=== PATIENT | female | born 1985 | race Two or more races ===

== ENCOUNTER → 2016-08-19 | Emergency (ER) | payer OTHER ==
[~2016-08-19] MED LIST: FAMOTIDINE 20 MG/50 ML IVPB 50 ML IVPB ONE; KETOROLAC TROMETHAMINE 30 MG/1 ML VIAL IVPUSH ONE; KETOROLAC TROMETHAMINE 30 MG/1 ML VIAL ONE; ONDANSETRON 4 MG/2 ML VIAL IVPUSH ONE; ONDANSETRON 4 MG/2 ML VIAL ONE; SODIUM CHLORIDE 0.9% 1000 ML INFUS.BAG IV ONE
--- NOTE | 2016-08-19 01:25 | PDOC ---
History of Present Illness - General Stated Complaint: STOMACH PAINS History Source: Patient Exam Limitations: No Limitations - History of Present Illness Initial Comments: 08/19/16 01:24 Patient is a 31 year old female with h/o A-Fib with ablation x 2 attempts c/o epigastric pain with LLQ abd pain since 11:30 pm tonight. States the pain was sudden onset associated with nausea, vomiting and diarrhea. Pain is stabbing, sharp, continuos 10/10, with no aggravating or alleviating factors. Did not take anything for the pain. Has h/o A-Fib was drinking wine today. Review of the chart shows patient has had prior episode of this type of pain 10/2005, with neg US. PMD: Kunal PMHX: as above PSOCHX: neg cig, drug, occ etoh ALL: NKDA GENERAL/CONSTITUTIONAL: [No fever or chills. No weakness. No weight change.] HEAD, EYES, EARS, NOSE AND THROAT: [No change in vision. No ear pain or discharge. No sore throat.] CARDIOVASCULAR: [No chest pain or shortness of breath.] RESPIRATORY: [No cough, wheezing, or hemoptysis.] GASTROINTESTINAL: [No nausea, vomiting, diarrhea or constipation. No rectal bleeding.] GENITOURINARY: [No dysuria, frequency, or change in urination.] MUSCULOSKELETAL: [No joint or muscle swelling or pain. No neck or back pain.] SKIN AND BREASTS: [No rash or easy bruising.] NEUROLOGIC: [No headache, vertigo, loss of consciousness, or loss of sensation.] PSYCHIATRIC: [No depression or anxiety.] ENDOCRINE: [No increased thirst. No abnormal weight change.] HEMATOLOGIC/LYMPHATIC: [No anemia, easy bleeding, or history of blood clots.] ALLERGIC/IMMUNOLOGIC: [No hives or skin allergy. No latex allergy.] GENERAL: [The patient is awake, alert, and fully oriented, in acute distress.] HEAD: [Normal with no signs of trauma.] EYES: [Pupils equal, round and reactive to light, extraocular movements intact, sclera anicteric, conjunctiva clear.] ENT: [Ears normal, nares patent, oropharynx clear without exudates. Moist mucous membranes.] NECK: [Normal range of motion, supple without lymphadenopathy, JVD, or masses.] LUNGS: [Breath sounds equal, clear to auscultation bilaterally. No wheezes, and no crackles.] HEART: [Regular rate and rhythm, normal S1 and S2 without murmur, rub.] ABDOMEN: [Soft, (+) tender epigastrum and LUQ, normoactive bowel sounds. No guarding, no rebound. No masses.] EXTREMITIES: [Normal range of motion, no edema. No clubbing or cyanosis. No cords, erythema, or tenderness.] NEUROLOGICAL: [Cranial nerves II through XII grossly intact. Normal speech, normal gait.] PSYCH: [Normal mood, normal affect.] SKIN: [Warm, Dry, normal turgor, no rashes or lesions noted.] Past History - Past Medical History Allergies/Adverse Reactions: Allergies Allergy/AdvReac Type Severity Reaction Status Date / Time No Known Allergies Allergy Verified 08/19/16 02:29 Home Medications: Ambulatory Orders Famotidine [Pepcid] 20 mg PO DAILY #20 tablet 08/19/16 Metoprolol Succinate [Toprol XL -] 50 mg PO DAILY 08/19/16 Asthma: No Cancer: No Cardiac Disorders: Yes (A FIB) Diabetes: No HTN: No Suicide Attempt (Hx): No Seizures: No Thyroid Disease: No - Reproductive History (#): 3 Para: 2 Cervical CA: No Dysfunctional Uterine Bleeding: No Ectopic : No Endometrial CA: No Polycystic Ovaries: No Therapeutic (s) & number: No Tubal Ligation: No Spontaneous : 1 - Psycho/Social/Smoking Cessation Hx Anxiety: No Suicidal Ideation: No Smoking History: Never smoked Have you smoked in the past 12 months: No Hx Alcohol Use: No Drug/Substance Use Hx: No Substance Use Type: None Hx Substance Use Treatment: No ED Treatment Course - LABORATORY CBC & Chemistry Diagram: 08/19/16 01:39 08/19/16 01:39 Medical Decision Making - Medical Decision Making 08/19/16 01:25 Patient is a 31 year old female with h/o A-Fib with attempted ablation x 2, with epigastric pain since 11:30 pm today. EKG A-Fib rate 79, NAD, (-) ST-T wave changes No acute findings on the labs work 08/19/16 04:34 Patient is feeling better no nausea, no vomiting tolerating po I discussed the physical exam findings, ancillary test results and final diagnoses with the patient. I answered all of the patient's questions. The patient was satisfied with the care received and felt comfortable with the discharge plan and treatment plan. The Patient agrees to follow up with the primary care physician within 24-72 hours. *DC/Admit/Observation/Transfer Diagnosis at time of Disposition: Epigastric pain - Discharge Dispostion Disposition: HOME Condition at time of disposition: Stable - Prescriptions Prescriptions: Famotidine [Pepcid] 20 mg PO DAILY #20 tablet - Patient Instructions Printed Discharge Instructions: DI for Epigastric Pain Additional Instructions: Your Discharge Instructions: You must call primary care physician within 24 hours to arrange follow-up. Return to the Emergency Department with any new, persistent or worsening symptoms, for fever, chills, SOB, dizziness or any other concerning changes that may occur.
[2016-08-19 01:48] LABS: BASOPHIL 0.5 % (0-2.0); EOSINOPHIL 1.4 % (0-4.5); MCH 23.1 pg (25.7-33.7); MCHC 31.9 g/dl (32.0-36.0); MEAN CELL VOLUME 72.4 fl (80-96); MEAN PLT VOLUME 7.1 fl (7.5-11.1); NEUTROPHILS 59.1 % (42.8-82.8); PLATELET COUNT 259 K/MM3 (134-434); RDW 18.3 % (11.6-15.6); WHITE BLOOD COUNT 8.4 K/mm3 (4.0-10.0)
[2016-08-19 02:14] LABS: ANION GAP 10 (8-16); BILIRUBIN,TOTAL 0.5 mg/dL (0.2-1.0); CALCIUM 9.2 mg/dL (8.5-10.1); CO2 28 mmol/L (21-32); CREATININE 0.7 mg/dL (0.55-1.02); GLUCOSE,RANDOM 104 mg/dL (74-106); SGOT/AST 15 U/L (15-37); SGPT/ALT 18 U/L (12-78); TOT PROT 7.9 g/dl (6.4-8.2)
[2016-08-19 02:15] LABS: ALK PHOS 94 U/L (45-117)
[2016-08-19 02:29] VITALS: BMI 21.2
[2016-08-19 02:45] LABS: TROPONIN I < 0.02 ng/ml (0.00-0.05)
[2016-08-19 05:05] VITALS: BP 100/66; PULSE 79; TEMP 98.1
--- NOTE | 2016-08-19 10:23 | EKG ---
Test Reason : Blood Pressure : / mmHG Vent. Rate : 079 BPM Atrial Rate : 079 BPM P-R Int : 144 ms QRS Dur : 068 ms QT Int : 366 ms P-R-T Axes : 064 055 000 degrees QTc Int : 419 ms SINUS RHYTHM WITH SINUS ARRHYTHMIA OTHERWISE NORMAL ECG WHEN COMPARED WITH ECG OF 09-DEC-2015 08:42, NO SIGNIFICANT CHANGE WAS FOUND Confirmed by TORIBIO RODNEY MD ([id number]) on 08/19/2016 10:23:00 AM Referred By: Confirmed By:TORIBIO RODNEY MD
== END | disposition home or self-care (01) ==
LOC: JER 01:06
PROC: 3E033GC Introduction of Other Therapeutic Substance into Peripheral Vein, Percutaneous Approach (ICD-10-PCS; principal; 2016-08-19)
PROC: 3E0333Z Introduction of Anti-inflammatory into Peripheral Vein, Percutaneous Approach (ICD-10-PCS; 2016-08-19)
PROC: 3E033GC Introduction of Other Therapeutic Substance into Peripheral Vein, Percutaneous Approach (ICD-10-PCS; 2016-08-19)
DX: R10.13 Epigastric pain (principal); Z86.79 Personal history of other diseases of the circulatory system
CPT/HCPCS: 36415; 80053; 82550; 83605; 83690; 84484; 84702; 85025; 93005; 93010; 99282-25

== ENCOUNTER 2017-06-24 16:57 | Inpatient (IN) | payer OTHER ==
--- NOTE | 2017-06-24 17:07 | PDOC ---
Rapid Medical Evaluation Chief Complaint: Palpitations Time Seen by Provider: 06/24/17 17:02 Medical Evaluation: Allergies Allergy/AdvReac Type Severity Reaction Status Date / Time No Known Allergies Allergy Verified 06/24/17 17:02 06/24/17 17:05 I have performed a brief in-person evaluation of this patient. The patient presents with a chief complaint of: palpitations and dizziness today. H/o afib on metoprolol and propafenone. Cards at [facility] Pertinent physical exam findings:tachy to 109 w/ irreg irreg rhythm I have ordered the following:ekg/labs The patient will proceed to the ED for further evaluation. Discharge Disposition - Diagnosis Palpitations - Referrals - Patient Instructions - Post Discharge Activity
[2017-06-24 17:08] VITALS: BMI 20.3
[2017-06-24 17:49] LABS: BASO % 0.7 % (0-2.0); EOS % 2.4 % (0-4.5); HEMATOCRIT 37.1 % (32.4-45.2); HEMOGLOBIN 12.9 GM/dL (10.7-15.3); LYMPH % 22.1 % (8-40); MCH 28.3 pg (25.7-33.7); MCHC 34.8 g/dl (32.0-36.0); MEAN CELL VOLUME 81.4 fl (80-96); MEAN PLT VOLUME 7.2 fl (7.5-11.1); MONO % 8.1 % (3.8-10.2); NEUT % 66.7 % (42.8-82.8); PLATELET COUNT 251 K/MM3 (134-434); RBC 4.56 M/mm3 (3.60-5.2); RDW 15.4 % (11.6-15.6); WHITE BLOOD COUNT 8.8 K/mm3 (4.0-10.0)
[2017-06-24 18:17] LABS: ALBUMIN 3.5 g/dl (3.4-5.0); ANION GAP 6 (8-16); BILIRUBIN,TOTAL 0.5 mg/dL (0.2-1.0); BLOOD UREA NITROGEN 14 mg/dL (7-18); CALCIUM 8.5 mg/dL (8.5-10.1); CHLORIDE 111 mmol/L (98-107); CO2 25 mmol/L (21-32); CREATININE 0.6 mg/dL (0.55-1.02); GLUCOSE,RANDOM 80 mg/dL (74-106); POTASSIUM 4.1 mmol/L (3.5-5.1); SGPT/ALT 17 U/L (12-78); SODIUM 142 mmol/L (136-145); TOT PROT 7.1 g/dl (6.4-8.2)
[2017-06-24 18:29] LABS: ALK PHOS 86 U/L (45-117); SGOT/AST 17 U/L (15-37)
--- NOTE | 2017-06-24 20:06 | PDOC ---
History of Present Illness - General Chief Complaint: Palpitations Stated Complaint: PAIN Time Seen by Provider: 06/24/17 17:02 History Source: Patient Exam Limitations: No Limitations - History of Present Illness Initial Comments: CHIEF COMPLAINT: 32 y/o afebrile female with PMH atrial fibrillation c/o palpitations this morning. HISTORY OF PRESENT ILLNESS: The patient states she had A-fib and her annual giving manager from [facility] did an ablation, which did put her back into a normal rhythm, which is why she's not on an anticoagulant. She states he did keep her on metoprolol and she takes propafenone only if she feels palpitations. She states she took a propafenone this morning after having the palpitations but it did not help. She also admits to feeling lightheaded. She denies fever, chills, cough, hemoptysis, CP, SOB, abd pain, n/v/d, calf pain, recent travel, smoking history, control use. PMD is at [facility] Chief Development Officer is Dr. Aftab Malhotra [facility] Vital signs on arrival are notable for pulse of 109. REVIEW OF SYSTEMS: GENERAL/CONSTITUTIONAL: No fever/chills. No weakness. No weight change. HEAD, EYES, EARS, NOSE AND THROAT: No change in vision. No ear pain or discharge. No sore throat. CARDIOVASCULAR: +palpitations. No chest pain or shortness of breath. RESPIRATORY: No cough, wheezing, or hemoptysis. GASTROINTESTINAL: No abd pain, nausea, vomiting, diarrhea. GENITOURINARY: No dysuria, frequency, or change in urination. MUSCULOSKELETAL: No joint or muscle swelling or pain. No neck or back pain. SKIN: No rash or easy bruising. NEUROLOGIC: +lightheaded. No headache, vertigo, loss of consciousness, or loss of sensation. PHYSICAL EXAM: GENERAL: The patient is awake, alert, and fully oriented, in no acute distress. HEAD: Normal with no signs of trauma. ENT: Pupils equal, round and reactive to light, extraocular movements intact, sclera anicteric, conjunctiva clear. Neck supple. LUNGS: Clear to auscultation bilaterally. Normal excursion. No respiratory distress or use of accessory muscles. CV: RRR, S1/S2, no MRG. Cap refill < 2 sec. ABDOMEN: Soft, non-distended, non-tender even to deep palpation, no hepatomegaly or splenomegaly, no masses. EXTREMITIES: Normal range of motion, no edema. NEUROLOGICAL: Normal speech, normal gait. CN II-XII grossly intact. SKIN: Warm, dry, normal turgor, no rashes or lesions noted. Past History - Past Medical History Allergies/Adverse Reactions: Allergies Allergy/AdvReac Type Severity Reaction Status Date / Time No Known Allergies Allergy Verified 06/24/17 17:02 Home Medications: Ambulatory Orders Metoprolol Succinate [Toprol XL -] 50 mg PO DAILY 08/19/16 Metoprolol Tartrate 25 mg PO QID PRN MDD 100 06/24/17 Propafenone HCl 225 mg PO DAILY PRN 06/24/17 Asthma: No Cancer: No Cardiac Disorders: Yes (A FIB) COPD: No Diabetes: No HTN: No Seizures: No Thyroid Disease: No - Reproductive History (#): 3 Para: 2 Cervical CA: No Dysfunctional Uterine Bleeding: No Ectopic : No Endometrial CA: No Polycystic Ovaries: No Therapeutic (s) & number: No Tubal Ligation: No Spontaneous : 1 - Suicide/Smoking/Psychosocial Hx Smoking History: Never smoked Have you smoked in the past 12 months: No Information on smoking cessation initiated: No Hx Alcohol Use: No Drug/Substance Use Hx: No Substance Use Type: None Hx Substance Use Treatment: No *Physical Exam - Vital Signs Last Vital Signs Temp Pulse Resp BP Pulse Ox 98.1 F 102 H 20 100/80 100 06/24/17 17:03 06/24/17 22:30 06/24/17 22:30 06/24/17 22:30 06/24/17 22:30 Heart Score/ECG Review - ECG Intrepretation Comment:: Twelve-lead EKG was performed and reviewed by Dr. Abarca. There is sinus tachycardia with a normal rhythm. The axis is normal. The intervals are normal. There are no ST or T wave abnormalities. Impression: Otherwise normal twelve-lead EKG ED Treatment Course - LABORATORY CBC & Chemistry Diagram: 06/24/17 17:25 06/24/17 17:25 - ADDITIONAL ORDERS Additional order review: Laboratory Results 06/24/17 06/24/17 17:33 17:25 Sodium 142 Potassium 4.1 Chloride 111 H Carbon Dioxide 25 Anion Gap 6 L BUN 14 Creatinine 0.6 Creat Clearance w eGFR > 60 Random Glucose 80 Calcium 8.5 Total Bilirubin 0.5 AST 17 ALT 17 Alkaline Phosphatase 86 Creatine Kinase 72 Troponin I < 0.02 Total Protein 7.1 Albumin 3.5 Serum , Qual Negative 06/24/17 17:25 RBC 4.56 MCV 81.4 MCHC 34.8 RDW 15.4 D MPV 7.2 L Neutrophils % 66.7 Lymphocytes % 22.1 D Monocytes % 8.1 Eosinophils % 2.4 Basophils % 0.7 - Medications Given in the ED: ED Medications Discontinued Medications Generic Name Dose Route Start Last Admin Trade Name Freq PRN Reason Stop Dose Admin Atropine Sulfate 1 mg 06/24/17 23:15 06/24/17 23:21 Atropine Injection - IVPUSH 06/24/17 23:16 1 mg ONCE ONE Administration Diltiazem HCl 20 mg 06/24/17 21:56 06/24/17 23:21 Cardizem Injection - IVPUSH 06/24/17 21:57 Not Given ONCE ONE Diltiazem HCl 20 mg 06/24/17 23:00 06/24/17 22:20 Cardizem Injection - IVPUSH 06/24/17 23:01 20 mg ONCE ONE Administration Sodium Chloride 1,000 mls @ 1,000 mls/hr 06/24/17 21:57 06/24/17 22:57 Normal Saline - IV 06/24/17 22:56 1,000 mls/hr ASDIR STA Administration Medical Decision Making - Medical Decision Making A/P: 32 y/o tachycardic female here because she's been having intermittent palpitations all day. Plan is as follows: 1. Labs 2. EKG Patient has had 3 EKGs: 1st - Atrial flutter 2nd - sinus tachycardiac 107 HR 3rd - Sinus tachycardia 127 HR Patient still symptomatic with palpitations and lightheaded. Still tachycardic. Will give IV cardizem and admit to hospitalist Dr. Andrews accepted admission to tele inpatient after patient bradied down into the 30s after cardizem. was given atropine. *DC/Admit/Observation/Transfer Diagnosis at time of Disposition: Palpitations, Paroxysmal atrial fibrillation, Atrial flutter with rapid ventricular response - Discharge Dispostion Condition at time of disposition: Fair Decision to Admit order: Yes Decision to Admit order Date/Time: Decision to Admit Order Category Date Time Status Decision to Admit to Hospital Routine Admission 06/24/17 23:29 Ordered - Referrals - Patient Instructions - Post Discharge Activity
--- NOTE | 2017-06-24 20:32 | PDOC ---
*Physical Exam - Vital Signs Last Vital Signs Temp Pulse Resp BP Pulse Ox 98.1 F 109 H 18 103/73 100 06/24/17 17:03 06/24/17 17:03 06/24/17 17:03 06/24/17 17:03 06/24/17 17:03 ED Treatment Course - LABORATORY CBC & Chemistry Diagram: 06/24/17 17:25 06/24/17 17:25 - ADDITIONAL ORDERS Additional order review: Laboratory Results 06/24/17 06/24/17 17:33 17:25 Sodium 142 Potassium 4.1 Chloride 111 H Carbon Dioxide 25 Anion Gap 6 L BUN 14 Creatinine 0.6 Creat Clearance w eGFR > 60 Random Glucose 80 Calcium 8.5 Total Bilirubin 0.5 AST 17 ALT 17 Alkaline Phosphatase 86 Creatine Kinase 72 Troponin I < 0.02 Total Protein 7.1 Albumin 3.5 Serum , Qual Negative 06/24/17 17:25 RBC 4.56 MCV 81.4 MCHC 34.8 RDW 15.4 D MPV 7.2 L Neutrophils % 66.7 Lymphocytes % 22.1 D Monocytes % 8.1 Eosinophils % 2.4 Basophils % 0.7 Medical Decision Making - Medical Decision Making 06/24/17 20:31 agree with care from SHAILA García *DC/Admit/Observation/Transfer Diagnosis at time of Disposition: Palpitations - Referrals - Patient Instructions - Post Discharge Activity
[2017-06-24] MEDS ORDERED: dilTIAZem HCL 50 MG/10 ML - 10 ML VIAL IVPUSH ONE ×2 (21:56→23:00)
[2017-06-24] MEDS ORDERED: SODIUM CHLORIDE 1,000 ML IV STA (21:57)
[2017-06-24] MEDS ORDERED: dilTIAZem HCL 125 MG/25 ML - 25 ML VIAL ONE (22:18)
--- NOTE | 2017-06-24 22:27 | PN ---
Teaching Attending Note Name of Resident: Isa Burrell ATTENDING PHYSICIAN STATEMENT I saw and evaluated the patient. I reviewed the resident's note and discussed the case with the resident. I agree with the resident's findings and plan as documented. SUBJECTIVE: 32 F with pmhx. of A-FIB(dx'd 2010), s/p Ablation at [facility] (not on A/C due to this). States she started to feel palpitations and took her Propafenone, with no improvement in her palpitations. Also with associated lightheadedness. No chest pain, pressure, or shortness of breath. No abd. pain, or calf pain. No recent travel. ED COURSE: Pt. recieved Cardizem 20 in ED. Upon my arrival pt. felt dizzy, lightheaded, HR 38-45 IRR, and HD BP 70/40's. Stat EKG, IVF fluids and Atropine administered. Pt. responded well and HR now remains 60-70s A-fib with increase in BP 90/70s OBJECTIVE: Physical: VS: Vital Signs Period Temp Pulse Resp BP Sys/Elizabeth Pulse Ox Last 24 Hr 98.1 F 102-113 18-20 100-112/73-84 100-100 GEN: Resting in bed, AA0X3 HEENT: NCAT, PERRL, Throat without erythema or exudates CARD: RRR S1, S2 RESP: CTAB ABD: BSx4,NTD to palpation EXT: - C/C/E CBCD WBC 8.8 K/mm3 (4.0-10.0) 06/24/17 17:25 RBC 4.56 M/mm3 (3.60-5.2) 06/24/17 17:25 Hgb 12.9 GM/dL (10.7-15.3) D 06/24/17 17:25 Hct 37.1 % (32.4-45.2) 06/24/17 17:25 MCV 81.4 fl (80-96) 06/24/17 17:25 MCHC 34.8 g/dl (32.0-36.0) 06/24/17 17:25 RDW 15.4 % (11.6-15.6) D 06/24/17 17:25 Plt Count 251 K/MM3 (134-434) 06/24/17 17:25 MPV 7.2 fl (7.5-11.1) L 06/24/17 17:25 CMP Sodium 142 mmol/L (136-145) 06/24/17 17:25 Potassium 4.1 mmol/L (3.5-5.1) 06/24/17 17:25 Chloride 111 mmol/L (98-107) H 06/24/17 17:25 Carbon Dioxide 25 mmol/L (21-32) 06/24/17 17:25 Anion Gap 6 (8-16) L 06/24/17 17:25 BUN 14 mg/dL (7-18) 06/24/17 17:25 Creatinine 0.6 mg/dL (0.55-1.02) 06/24/17 17:25 Creat Clearance w eGFR > 60 (>60) 06/24/17 17:25 Random Glucose 80 mg/dL (74-106) 06/24/17 17:25 Calcium 8.5 mg/dL (8.5-10.1) 06/24/17 17:25 Total Bilirubin 0.5 mg/dL (0.2-1.0) 06/24/17 17:25 AST 17 U/L (15-37) 06/24/17 17:25 ALT 17 U/L (12-78) 06/24/17 17:25 Alkaline Phosphatase 86 U/L (45-117) 06/24/17 17:25 Total Protein 7.1 g/dl (6.4-8.2) 06/24/17 17:25 Albumin 3.5 g/dl (3.4-5.0) 06/24/17 17:25 CARDIAC ENZYMES Creatine Kinase 72 IU/L (26-192) 06/24/17 17:25 Troponin I < 0.02 ng/ml (0.00-0.05) 06/24/17 17:25 EKG: S Tach CXR: PENDING ASSESSMENT AND PLAN: 32 F with pmhx. of A-FIB(dx'd 2010), s/p Ablation at [facility] (not on A/C due to this), who is being admitted for A-Fib, Palpitations 1.) AFib - Now in Sinus - [id number] - C/W Metoprolol in AM - Echo - Trend Trop/Ekg 2.) Palpitations - TSH - Cardio consult 3.) Dvt Ppx - Scds Place in Admit-Tele
--- NOTE | 2017-06-24 23:04 | HP ---
CHIEF COMPLAINT: chest palpitations PCP: Dr. Yanet Prince at [facility], office # [phone] Relations Mgr: Dr. Aftab Malhotra, [facility] (performed ablation) HISTORY OF PRESENT ILLNESS: 32yo young woman with PMH of Afib (dx 2011) s/p ablation in 2016 and thus not on A/C, who presents with acute onset of palpitations since this morning. Patient reports being rate controlled after the ablation until last year when she had episode of palpitations and was admitted to [facility]. She followed-up with her Relations Mgr after that episode, and was continued on Toprol Xl 50mg daily. She has not had any further episodes until today. She took Propafenone 225mcg and Metoprolol Tartarte 25mg x 2 today (PRN Rx) with no improvement in her palpitations. She also endorses some lightheaded and shortness of breath. Believes last ECHO was in 2014 during . Denies any recent fever, chills, cough, sick contacts, recent travel, diarrhea or abdominal cramping. Denies ever having her thyroid function tested. ER course was notable for: (1) EKG #1: A flutter, rate 98/ EKG#2 Sinus tach, rate 107/ EKG#3 Sinus tach, rate 127 (2) received Cardizem 20mg IVP -> patient felt increasing lightheadedness, Irreg HR 38-45's with BP 70/40's. Patient given Atropine 1mg IVP and IVF with improved hemodynamics - IRR HR 60-70's with BP 102/76 Recent Travel: none PAST MEDICAL HISTORY: see HPI PAST SURGICAL HISTORY: Ablation Social History: Smoking: never Alcohol: rarely Drugs: none Family History: twin sister with Afib; daughter with "hole in heart" Allergies: No Known Allergies Allergy (Verified 06/24/17 17:02) HOME MEDICATIONS: Medication Instructions Recorded Metoprolol Succinate [Toprol XL -] 50 mg PO DAILY 08/19/16 Metoprolol Tartrate 25 mg PO QID PRN MDD 100 06/24/17 Propafenone HCl 225 mg PO DAILY PRN 06/24/17 REVIEW OF SYSTEMS CONSTITUTIONAL: Absent: fever, chills, diaphoresis, generalized weakness, malaise, loss of appetite, weight change HEENT: Absent: rhinorrhea, nasal congestion, throat pain, throat swelling, difficulty swallowing, mouth swelling, ear pain, eye pain, visual changes CARDIOVASCULAR: + palpitations, irregular heart rate, lightheadedness Absent: chest pain, syncope, peripheral edema RESPIRATORY: + shortness of breath Absent: cough, dyspnea with exertion, orthopnea, wheezing, stridor, hemoptysis GASTROINTESTINAL: Absent: abdominal pain, abdominal distension, nausea, vomiting, diarrhea, constipation, melena, hematochezia GENITOURINARY: Absent: dysuria, frequency, urgency, hesitancy, hematuria, flank pain, genital pain MUSCULOSKELETAL: Absent: myalgia, arthralgia, joint swelling, back pain, neck pain SKIN: Absent: rash, itching, pallor HEMATOLOGIC/IMMUNOLOGIC: Absent: easy bleeding, easy bruising, lymphadenopathy, frequent infections ENDOCRINE: Absent: unexplained weight gain, unexplained weight loss, heat intolerance, cold intolerance NEUROLOGIC: Absent: headache, focal weakness or paresthesias, dizziness, unsteady gait, seizure, mental status changes, bladder or bowel incontinence PSYCHIATRIC: Absent: anxiety, depression, suicidal or homicidal ideation, hallucinations. PHYSICAL EXAMINATION Vital Signs - 24 hr 06/24/17 06/24/17 06/24/17 17:03 19:00 22:30 Temperature 98.1 F Pulse Rate 109 H Pulse Rate [ 113 H 102 H Apical] Respiratory 18 20 20 Rate Blood Pressure 103/73 Blood Pressure 112/84 100/80 [Right Arm] O2 Sat by Pulse 100 100 100 Oximetry (%) GENERAL: aaox3, nad, speaking in full sentences HEENT: sclera anicteric, conjunctiva clear, pharynx without erythema, mmm NECK: supple, no cervical LAD LUNGS: CTAB, wheezes, crackles, or rhonchi appreciated, no accessory muscle use HEART: tachycardia, regular rhythm, normal S1/S2, no m/r/g ABDOMEN: soft, NTND LOWER EXTREMITIES: 2+ DP pulses, wwp, no edema CBC, BMP 06/24/17 17:25 06/24/17 17:25 Hepatic Panel Total Bilirubin 0.5 mg/dL (0.2-1.0) 06/24/17 17:25 AST 17 U/L (15-37) 06/24/17 17:25 ALT 17 U/L (12-78) 06/24/17 17:25 Alkaline Phosphatase 86 U/L (45-117) 06/24/17 17:25 Albumin 3.5 g/dl (3.4-5.0) 06/24/17 17:25 Troponin, BNP 06/24/17 17:25 Troponin I < 0.02 06/24/17 17:33 Serum , Qual Negative Active Medications Heparin Sodium (Porcine) (Heparin -) 5,000 unit SQ TID [facility] Last Admin: 06/25/17 06:19 Dose: 5,000 unit Sodium Chloride (Normal Saline -) 1,000 mls @ 75 mls/hr IV ASDIR RAINE Metoprolol Succinate (Toprol Xl -) 50 mg PO DAILY [facility] ASSESSMENT/PLAN: 32yo woman with PMH of Afib s/p Ablation 2 years ago (not on A/C) who has been rate controlled but presents today with palpitations. #Afib, was in sinus tachycardia, rates 100-110's -Cardiology consulted (Dr. Gay) -Continuous cardiac monitoring -Serial Troponins Q6H (2x negative) -Check 2D ECHO -Check CXR -Continue home medication Toprol Xl 50mg daily -> next dose 06/25 @10 -Consider Lopressor 2.5mg IVP if BP can tolerate with sustained HR>120 -Check TSH #FEN -NS 75cc/hr -lytes wnl -Regular diet #PPX - HSQ TID #DISPO: telemetry FULL code d/w Dr. Juliana Burrell MD PGY1 - Internal Medicine, [employer] Visit type - Emergency Visit Emergency Visit: Yes ED Registration Date: 06/24/17 Care time: The patient presented to the Emergency Department on the above date and was hospitalized for further evaluation of their emergent condition. - New Patient This patient is new to me today: Yes Date on this admission: 06/25/17 - Critical Care Critical Care patient: No Hospitalist Screening - Colonoscopy Questionnaire Colonoscopy Questionnaire: Colonoscopy Questionnaire - Patient: 50 - 75 years old and never had a screening colonoscopy: No History of colon or rectal polyps, or CA: Unknown History of IBD, Crohn's disease or UC: Unknown History of abdominal radiation therapy as a child: Unknown - Relative: 1 with colon or rectal CA, or polyps at age 60 or younger: Unknown Colon or rectal CA diagnosed at age 45 or younger: Unknown Multiple relatives with colon or rectal CA: Unknown - Outcome: Screening Result: Negative Screen
[2017-06-24] MEDS ORDERED: METOPROLOL TARTRATE 25 MG TABLET (FP) PO PRN (23:10)
[2017-06-24] MEDS ORDERED: ATROPINE SULFATE 1 MG/10 ML DISP.SYRIN ONE (23:15)
[2017-06-24] MEDS ORDERED: ATROPINE SULFATE 1 MG/10 ML DISP.SYRIN IVPUSH ONE (23:15)
--- NOTE | 2017-06-25 01:29 | CONSULT ---
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: Other (mild headache after receiving treatment) Cardio/Vascular: Yes: AFIB, Other (tachycardia) Gastrointestinal: Yes: Ulcerative Colitis (epigastric pain), Other ...LMP: 11/20/15 Psych: Yes: Anxiety - Past Surgical History Past Surgical History: Yes: None - Alcohol/Substance Use Hx Alcohol Use: No History of Substance Use: reports: None - Smoking History Smoking history: Never smoked Have you smoked in the past 12 months: No - Social History Usual Living Arrangement: With Significant Other ADL: Independent History of Recent Travel: No Home Medications - Allergies Allergies/Adverse Reactions: Allergies Allergy/AdvReac Type Severity Reaction Status Date / Time No Known Allergies Allergy Verified 06/24/17 17:02 - Home Medications Home Medications: Ambulatory Orders Metoprolol Succinate [Toprol XL -] 50 mg PO DAILY 08/19/16 Metoprolol Tartrate 25 mg PO QID PRN MDD 100 06/24/17 Propafenone HCl 225 mg PO DAILY PRN 06/24/17 Family Disease History - Family Disease History Family Disease History: Heart Disease: Mother (h/o cardiac arrythmia, in child ), Sister (h/o palpitation) Physical Exam Vital Signs: Vital Signs Temperature 97.0 F L 06/25/17 01:03 Pulse Rate 141 H 06/25/17 01:03 Respiratory Rate 18 06/25/17 01:03 Blood Pressure 101/79 06/25/17 01:03 O2 Sat by Pulse Oximetry (%) 100 06/25/17 00:10 Labs: CBC, BMP 06/24/17 17:25 06/24/17 17:25
[2017-06-25] MEDS ORDERED: METOPROLOL TARTRATE 25 MG TABLET (FP) PO PRN (05:53)
[2017-06-25] MEDS ORDERED: HEPARIN NA (PORCINE) 5,000 UNITS/ML 1ML VIAL SQ SCH (06:00)
[2017-06-25] MEDS ORDERED: METOPROLOL TARTRATE 25 MG TABLET (FP) PO STA (06:33)
[2017-06-25] MEDS ORDERED: SODIUM CHLORIDE 500 ML IV STA (06:35)
[2017-06-25] MEDS ORDERED: SODIUM CHLORIDE 1,000 ML IV SCH (06:45)
[2017-06-25 06:59] LABS: BLOOD UREA NITROGEN 11 mg/dL (7-18); GLUCOSE,RANDOM 100 mg/dL (74-106)
[2017-06-25 07:00] LABS: ANION GAP 4 (8-16); CALCIUM 8.5 mg/dL (8.5-10.1); CHLORIDE 113 mmol/L (98-107); CO2 26 mmol/L (21-32); CREATININE 0.7 mg/dL (0.55-1.02); POTASSIUM 4.1 mmol/L (3.5-5.1); SODIUM 143 mmol/L (136-145)
[2017-06-25 07:41] LABS: HEMOGLOBIN 13.4 GM/dL (10.7-15.3); MCH 27.8 pg (25.7-33.7); MCHC 34.4 g/dl (32.0-36.0); MEAN CELL VOLUME 80.7 fl (80-96); MEAN PLT VOLUME 7.1 fl (7.5-11.1); PLATELET COUNT 249 K/MM3 (134-434); RBC 4.84 M/mm3 (3.60-5.2); RDW 14.7 % (11.6-15.6); WHITE BLOOD COUNT 9.4 K/mm3 (4.0-10.0)
--- NOTE | 2017-06-25 07:47 | PN ---
Teaching Attending Note Name of Resident: Mame Jefferson ATTENDING PHYSICIAN STATEMENT I saw and evaluated the patient. I reviewed the resident's note and discussed the case with the resident. I agree with the resident's findings and plan as documented with exceptions below. SUBJECTIVE: Patient seen and examined. C/o palpitations, no dizziness or dyspnea. Anxious about her heart but no other complaints. OBJECTIVE: Vital Signs Period Temp Pulse Resp BP Sys/Elizabeth Pulse Ox Last 24 Hr 97.0 F-98.1 F 69-146 18-20 90-112/55-84 100-100 Intake & Output 06/22/17 06/23/17 06/24/17 06/25/17 23:59 23:59 23:59 23:59 Intake Total 260 Balance 260 Weight 115 lb 115 lb General: sitting in bed, anxious Chest: CTAB, no rales or wheezing CVS: S1S2 irregularly irregular rapid Abdomen: soft, NT, ND Extremities: no edema Home Medication List Medication Instructions Recorded Confirmed Type Metoprolol Succinate [Toprol XL -] 50 mg PO DAILY 08/19/16 06/24/17 History Metoprolol Tartrate 25 mg PO QID PRN MDD 100 06/24/17 06/24/17 History Propafenone HCl 225 mg PO DAILY PRN 06/24/17 06/24/17 History Active Medications Generic Name Dose Route Start Last Admin Trade Name Valenteq PRN Reason Stop Dose Admin Heparin Sodium (Porcine) 5,000 unit 06/25/17 06:00 06/25/17 06:19 Heparin - SQ 5,000 unit TID RAINE Administration Sodium Chloride 1,000 mls @ 75 mls/hr 06/25/17 06:45 Normal Saline - IV ASDIR RAINE Metoprolol Succinate 50 mg 06/25/17 10:00 Toprol Xl - PO DAILY [facility] Laboratory Results - last 24 hr 06/24/17 06/24/17 06/24/17 17:25 17:25 17:33 WBC 8.8 RBC 4.56 Hgb 12.9 D Hct 37.1 MCV 81.4 MCH 28.3 D MCHC 34.8 RDW 15.4 D Plt Count 251 MPV 7.2 L Neutrophils % 66.7 Lymphocytes % 22.1 D Monocytes % 8.1 Eosinophils % 2.4 Basophils % 0.7 Sodium 142 Potassium 4.1 Chloride 111 H Carbon Dioxide 25 Anion Gap 6 L BUN 14 Creatinine 0.6 Creat Clearance w eGFR > 60 Random Glucose 80 Calcium 8.5 Total Bilirubin 0.5 AST 17 ALT 17 Alkaline Phosphatase 86 Creatine Kinase 72 Troponin I < 0.02 Total Protein 7.1 Albumin 3.5 TSH Serum , Qual Negative 06/24/17 06/24/17 06/25/17 23:30 23:30 05:30 WBC 9.4 RBC 4.84 Hgb 13.4 Hct 39.0 MCV 80.7 MCH 27.8 MCHC 34.4 RDW 14.7 Plt Count 249 MPV 7.1 L Neutrophils % Lymphocytes % Monocytes % Eosinophils % Basophils % Sodium Potassium Chloride Carbon Dioxide Anion Gap BUN Creatinine Creat Clearance w eGFR Random Glucose Calcium Total Bilirubin AST ALT Alkaline Phosphatase Creatine Kinase 59 Troponin I < 0.02 Total Protein Albumin TSH 3.25 Serum , Qual 06/25/17 05:30 WBC RBC Hgb Hct MCV MCH MCHC RDW Plt Count MPV Neutrophils % Lymphocytes % Monocytes % Eosinophils % Basophils % Sodium 143 Potassium 4.1 Chloride 113 H Carbon Dioxide 26 Anion Gap 4 L BUN 11 Creatinine 0.7 Creat Clearance w eGFR Random Glucose 100 Calcium 8.5 Total Bilirubin AST ALT Alkaline Phosphatase Creatine Kinase Troponin I < 0.02 Total Protein Albumin TSH Serum , Qual ASSESSMENT AND PLAN: 32 yof with pMHx of paroxysmal Afib diagnosed in 2010, s/p ablation 10/11/2015, recently admitted with afib with RVR when d/price on Toprol XL 50 mg and Propafenone, comes with palpitations, found in rapid afib/aflutter, ED course complicated by bradycardia/hypotension after receiving 20 mg IV cardizem, requiring Atropine x 1. -Atrial fibrillation/Flutter with RVR -Bradycardia/hypotension after 20 mg IV cardizem IV in ED requiring IV Atropine Plan: Persistent Afib 110s-150s this AM, lopressor 5 mg IV x 2 with improvement to 90s -100s. IVF 1 liter bolus given. Cardiology input appreciated. Lovenox BID, PO cardizem. Continue Toprol XL 50 mg daily. Follow up 2D echo and Chest Xray. TSH WNL. Dispo pending clinical improvement. Will need to address possible transfer to Dr Malhotra if persistent Afib/flutter if EP study or intervention indicated. Plan discussed with patient and all questions answered.
[2017-06-25] MEDS ORDERED: ASPIRIN 81 MG CHEWABLE TABLETS PO ONE (09:08)
[2017-06-25] MEDS ORDERED: METOPROLOL TARTRATE 5 MG/5 ML VIAL IVPUSH ONE (09:11)
[2017-06-25] MEDS ORDERED: ASPIRIN 81 MG CHEWABLE TABLETS ONE (09:21)
[2017-06-25] MEDS ORDERED: METOPROLOL TARTRATE 5 MG/5 ML VIAL ONE ×2 (09:21→09:34)
--- NOTE | 2017-06-25 10:34 | CON.CARD ---
Consult Consult Specialty:: Cardiology - History of Present Illness Chief Complaint: palpitations History of Present Illness: 32yo young woman with PMH of Afib (dx 2011) s/p ablation in 2016 and thus not on A/C, who presents with acute onset of palpitations since this morning. Patient reports being rate controlled after the ablation until last year when she had episode of palpitations and was admitted to [facility]. She followed-up with her Sticker Operator after that episode, and was continued on Toprol Xl 50mg daily. She has not had any further episodes until today. She took Propafenone 225mcg and Metoprolol [place] 25mg x 2 today (PRN Rx) with no improvement in her palpitations. She also endorses some lightheaded and shortness of breath. Believes last ECHO was in 2014 during . Denies any recent fever, chills, cough, sick contacts, recent travel, diarrhea or abdominal cramping. Denies ever having her thyroid function tested. 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 after receiving treatment) Cardio/Vascular: Yes: AFIB, Other (tachycardia) Gastrointestinal: Yes: Ulcerative Colitis (epigastric pain), Other ...LMP: 06/20/17 ...: No Psych: Yes: Anxiety - Past Surgical History Past Surgical History: Yes: None - Alcohol/Substance Use Hx Alcohol Use: No History of Substance Use: reports: None - Smoking History Smoking history: Never smoked Have you smoked in the past 12 months: No - Social History Usual Living Arrangement: With Significant Other ADL: Independent History of Recent Travel: No Home Medications - Allergies Allergies/Adverse Reactions: Allergies Allergy/AdvReac Type Severity Reaction Status Date / Time No Known Allergies Allergy Verified 06/24/17 17:02 - Home Medications Home Medications: Ambulatory Orders Metoprolol Succinate [Toprol XL -] 50 mg PO DAILY 08/19/16 Metoprolol Tartrate 25 mg PO QID PRN MDD 100 06/24/17 Propafenone HCl 225 mg PO DAILY PRN 06/24/17 Family Disease History - Family Disease History Family Disease History: Heart Disease: Mother (h/o cardiac arrythmia, in child ), Sister (h/o palpitation) Review of Systems - Review of Systems Constitutional: reports: No Symptoms Eyes: reports: No Symptoms HENT: reports: No Symptoms Neck: reports: No Symptoms Cardiovascular: reports: Palpitations Gastrointestinal: reports: No Symptoms Genitourinary: reports: No Symptoms Breasts: reports: No Symptoms Reported Musculoskeletal: reports: No Symptoms Integumentary: reports: No Symptoms Neurological: reports: No Symptoms Endocrine: reports: No Symptoms Hematology/Lymphatic: reports: No Symptoms Psychiatric: reports: No Symptoms Vital Signs: Vital Signs Temperature 97.8 F 06/25/17 06:00 Pulse Rate 148 H 06/25/17 09:22 Respiratory Rate 18 06/25/17 06:00 Blood Pressure 94/75 06/25/17 09:22 O2 Sat by Pulse Oximetry (%) 100 06/25/17 06:00 Constitutional: Yes: Well Nourished, No Distress, Calm Eyes: Yes: WNL, Conjunctiva Clear, EOM Intact HENT: Yes: WNL, Atraumatic, Normocephalic Neck: Yes: WNL, Supple, Trachea Midline Respiratory: Yes: WNL, Regular, CTA Bilaterally Gastrointestinal: Yes: WNL, Normal Bowel Sounds Renal/: Yes: WNL Cardiovascular: Yes: WNL, Regular Rate and Rhythm Musculoskeletal: Yes: WNL Extremities: Yes: WNL Integumentary: Yes: WNL Neurological: Yes: WNL, Alert, Oriented ...Motor Strength: WNL Psychiatric: Yes: WNL, Alert, Oriented - Other Data Labs, Other Data: CBC, BMP 06/25/17 05:30 06/25/17 05:30 Troponin, BNP 06/24/17 06/24/17 06/25/17 17:25 23:30 05:30 Troponin I < 0.02 < 0.02 < 0.02 Troponin, BNP 06/24/17 06/24/17 06/25/17 17:25 23:30 05:30 Troponin I < 0.02 < 0.02 < 0.02 Laboratory Tests 06/24/17 06/24/17 06/24/17 17:25 17:25 17:33 WBC 8.8 RBC 4.56 Hgb 12.9 D Hct 37.1 MCV 81.4 MCH 28.3 D MCHC 34.8 RDW 15.4 D Plt Count 251 MPV 7.2 L Neutrophils % 66.7 Lymphocytes % 22.1 D Monocytes % 8.1 Eosinophils % 2.4 Basophils % 0.7 Sodium 142 Potassium 4.1 Chloride 111 H Carbon Dioxide 25 Anion Gap 6 L BUN 14 Creatinine 0.6 Creat Clearance w eGFR > 60 Random Glucose 80 Calcium 8.5 Total Bilirubin 0.5 AST 17 ALT 17 Alkaline Phosphatase 86 Creatine Kinase 72 Troponin I < 0.02 Total Protein 7.1 Albumin 3.5 TSH Serum , Qual Negative 06/24/17 06/24/17 06/25/17 23:30 23:30 05:30 WBC 9.4 RBC 4.84 Hgb 13.4 Hct 39.0 MCV 80.7 MCH 27.8 MCHC 34.4 RDW 14.7 Plt Count 249 MPV 7.1 L Neutrophils % Lymphocytes % Monocytes % Eosinophils % Basophils % Sodium Potassium Chloride Carbon Dioxide Anion Gap BUN Creatinine Creat Clearance w eGFR Random Glucose Calcium Total Bilirubin AST ALT Alkaline Phosphatase Creatine Kinase 59 Troponin I < 0.02 Total Protein Albumin TSH 3.25 Serum , Qual 06/25/17 05:30 WBC RBC Hgb Hct MCV MCH MCHC RDW Plt Count MPV Neutrophils % Lymphocytes % Monocytes % Eosinophils % Basophils % Sodium 143 Potassium 4.1 Chloride 113 H Carbon Dioxide 26 Anion Gap 4 L BUN 11 Creatinine 0.7 Creat Clearance w eGFR Random Glucose 100 Calcium 8.5 Total Bilirubin AST ALT Alkaline Phosphatase Creatine Kinase Troponin I < 0.02 Total Protein Albumin TSH Serum , Qual Imaging - Results Chest X-ray: Image Reviewed (wnl) EKG: Image Reviewed (af rvr) Problem List - Problems (1) Abdominal discomfort Code(s): R10.9 - UNSPECIFIED ABDOMINAL PAIN (2) Abnormal EKG Code(s): R94.31 - ABNORMAL ELECTROCARDIOGRAM [ECG] [EKG] (3) Atrial fibrillation Code(s): I48.91 - UNSPECIFIED ATRIAL FIBRILLATION Qualifiers: Atrial fibrillation type: paroxysmal Qualified Code(s): I48.0 - Paroxysmal atrial fibrillation (4) Atrial flutter with rapid ventricular response Code(s): I48.92 - UNSPECIFIED ATRIAL FLUTTER (5) Epigastric pain Code(s): R10.13 - EPIGASTRIC PAIN (6) Microcytic anemia Code(s): D50.9 - IRON DEFICIENCY ANEMIA, UNSPECIFIED (7) Palpitations Code(s): R00.2 - PALPITATIONS (8) Paroxysmal atrial fibrillation Code(s): I48.0 - PAROXYSMAL ATRIAL FIBRILLATION (9) Peptic ulcer disease Code(s): K27.9 - PEPTIC ULC, SITE UNSP, UNSP AC OR CHR, W/O HEMOR OR PERF (10) Code(s): Z33.1 - STATE, INCIDENTAL Assessment/Plan PAFwith RVR s/p ablation moderate MR Moderate TR Plan AC with heparin rate controll with BB and IV cardizem repeat echo when rate controlled will need evaluation with dr. Kevin Wheeler if remains in AF CCtime spent 70 min
--- NOTE | 2017-06-25 10:36 | EKG ---
Test Reason : Blood Pressure : / mmHG Vent. Rate : 053 BPM Atrial Rate : 227 BPM P-R Int : 000 ms QRS Dur : 082 ms QT Int : 396 ms P-R-T Axes : 000 069 -42 degrees QTc Int : 371 ms ATRIAL FIBRILLATION WITH SLOW VENTRICULAR RESPONSE NONSPECIFIC T WAVE ABNORMALITY ABNORMAL ECG WHEN COMPARED WITH ECG OF 24-JUN-2017 21:44, ATRIAL FIBRILLATION HAS REPLACED SINUS RHYTHM VENT. RATE HAS DECREASED BY 74 BPM NONSPECIFIC T WAVE ABNORMALITY, WORSE IN ANTERIOR LEADS Confirmed by ALVARO PIPER, BELINDA ([id number]) on 06/25/2017 10:36:03 AM Referred By: Confirmed By:BELINDA JOHN MD
--- NOTE | 2017-06-25 10:36 | EKG ---
Test Reason : Blood Pressure : / mmHG Vent. Rate : 098 BPM Atrial Rate : 214 BPM P-R Int : 000 ms QRS Dur : 090 ms QT Int : 342 ms P-R-T Axes : 085 023 057 degrees QTc Int : 436 ms ATRIAL FLUTTER WITH VARIABLE A-V BLOCK ABNORMAL ECG WHEN COMPARED WITH ECG OF 19-AUG-2016 01:30, PREVIOUS ECG HAS UNDETERMINED RHYTHM, NEEDS REVIEW QUESTIONABLE CHANGE IN QRS DURATION Confirmed by ALVARO PIPER, BELINDA ([id number]) on 06/25/2017 10:35:44 AM Referred By: Confirmed By:BELINDA JOHN MD
--- NOTE | 2017-06-25 12:01 | EKG ---
Test Reason : Blood Pressure : / mmHG Vent. Rate : 149 BPM Atrial Rate : 298 BPM P-R Int : 000 ms QRS Dur : 074 ms QT Int : 284 ms P-R-T Axes : 072 012 -16 degrees QTc Int : 447 ms ATRIAL FLUTTER WITH 2:1 A-V CONDUCTION NONSPECIFIC T WAVE ABNORMALITY ABNORMAL ECG WHEN COMPARED WITH ECG OF 25-JUN-2017 00:58, ATRIAL FLUTTER HAS REPLACED SINUS RHYTHM ST NO LONGER ELEVATED IN INFERIOR LEADS Confirmed by BELINDA JOHN MD ([id number]) on 06/25/2017 12:00:34 PM Referred By: Confirmed By:BELINDA JOHN MD
--- NOTE | 2017-06-25 13:10 | PN ---
Physical Exam: SUBJECTIVE: Patient seen and examined. Came in with tachycardia (aflutter), became bradycardic following cardizem. Was given atropine and fluids. Heart rate returned to the 140s. She had Echo done, then started to have chest pain. Received ASA 324. Had EKG done and trops. Received iv 10mg lopressor over about 10mins and pulse rate finally went down to the 90s before the end of rounds. OBJECTIVE: Vital Signs Period Temp Pulse Resp BP Sys/Elizabeth Pulse Ox Last 24 Hr 97.0 F-98.1 F 69-148 18-20 90-112/55-84 100-100 Vital Signs Temp 98.6 F 06/25/17 14:00 Pulse 79 06/25/17 16:00 Resp 18 06/25/17 16:00 BP 102/72 06/25/17 16:00 Pulse Ox 100 06/25/17 10:00 Vital Signs - 24 hr 06/24/17 06/24/17 06/24/17 17:03 19:00 22:20 Temperature 98.1 F Pulse Rate 109 H Pulse Rate [ 113 H 133 H Apical] Respiratory 18 20 20 Rate Blood Pressure 103/73 Blood Pressure 112/84 100/80 [Right Arm] O2 Sat by Pulse 100 100 100 Oximetry (%) 06/24/17 06/24/17 06/24/17 22:30 23:00 23:35 Temperature Pulse Rate Pulse Rate [ 102 H 69 78 Apical] Respiratory 20 20 20 Rate Blood Pressure Blood Pressure 100/80 90/55 96/76 [Right Arm] O2 Sat by Pulse 100 100 100 Oximetry (%) 06/25/17 06/25/17 06/25/17 00:10 01:03 01:29 Temperature 97.0 F L 97.0 F L Pulse Rate 141 H 141 H Pulse Rate [ 81 Apical] Respiratory 20 18 18 Rate Blood Pressure 101/79 104/79 Blood Pressure 102/76 [Right Arm] O2 Sat by Pulse 100 100 Oximetry (%) 06/25/17 06/25/17 06/25/17 01:43 05:00 06:00 Temperature 97.0 F L 97.8 F 97.8 F Pulse Rate 141 H 146 H 146 H Pulse Rate [ Apical] Respiratory 18 18 18 Rate Blood Pressure 104/79 94/69 94/69 Blood Pressure [Right Arm] O2 Sat by Pulse 100 100 Oximetry (%) 06/25/17 06/25/17 06/25/17 09:00 09:22 10:00 Temperature 98.4 F Pulse Rate 148 H 148 H 108 H Pulse Rate [ Apical] Respiratory 20 18 Rate Blood Pressure 95/75 94/75 93/62 Blood Pressure [Right Arm] O2 Sat by Pulse 100 100 Oximetry (%) 06/25/17 06/25/17 14:00 16:00 Temperature 98.6 F Pulse Rate 110 H 79 Pulse Rate [ Apical] Respiratory 18 18 Rate Blood Pressure 91/68 102/72 Blood Pressure [Right Arm] O2 Sat by Pulse Oximetry (%) Patient was examined before the chest pain symptoms: GENERAL: The patient is awake, alert, and fully oriented, in no acute distress. EYES: PERRL, extraocular movements intact ENT: oropharynx clear without exudates, moist mucous membranes. NECK: supple. LUNGS: Breath sounds equal, clear to auscultation bilaterally, no wheezes, no crackles, no accessory muscle use. HEART: Tachycardic, S1, S2 without murmur, rub or gallop. ABDOMEN: Soft, nontender, nondistended, normoactive bowel sounds, EXTREMITIES: 2+ pulses, warm, well-perfused, no edema. NEUROLOGICAL: Cranial nerves II through XII grossly intact. Normal speech, no facial droop, muscle tone and power globally normal, gait not observed. PSYCH: Normal mood, normal affect. SKIN: Warm, dry, normal turgor, no rashes or lesions noted Laboratory Results - last 24 hr 06/24/17 06/24/17 06/24/17 17:25 17:25 17:33 WBC 8.8 RBC 4.56 Hgb 12.9 D Hct 37.1 MCV 81.4 MCH 28.3 D MCHC 34.8 RDW 15.4 D Plt Count 251 MPV 7.2 L Neutrophils % 66.7 Lymphocytes % 22.1 D Monocytes % 8.1 Eosinophils % 2.4 Basophils % 0.7 Sodium 142 Potassium 4.1 Chloride 111 H Carbon Dioxide 25 Anion Gap 6 L BUN 14 Creatinine 0.6 Creat Clearance w eGFR > 60 Random Glucose 80 Calcium 8.5 Total Bilirubin 0.5 AST 17 ALT 17 Alkaline Phosphatase 86 Creatine Kinase 72 Troponin I < 0.02 Total Protein 7.1 Albumin 3.5 TSH Serum , Qual Negative 06/24/17 06/24/17 06/25/17 23:30 23:30 05:30 WBC 9.4 RBC 4.84 Hgb 13.4 Hct 39.0 MCV 80.7 MCH 27.8 MCHC 34.4 RDW 14.7 Plt Count 249 MPV 7.1 L Neutrophils % Lymphocytes % Monocytes % Eosinophils % Basophils % Sodium Potassium Chloride Carbon Dioxide Anion Gap BUN Creatinine Creat Clearance w eGFR Random Glucose Calcium Total Bilirubin AST ALT Alkaline Phosphatase Creatine Kinase 59 Troponin I < 0.02 Total Protein Albumin TSH 3.25 Serum , Qual 06/25/17 05:30 WBC RBC Hgb Hct MCV MCH MCHC RDW Plt Count MPV Neutrophils % Lymphocytes % Monocytes % Eosinophils % Basophils % Sodium 143 Potassium 4.1 Chloride 113 H Carbon Dioxide 26 Anion Gap 4 L BUN 11 Creatinine 0.7 Creat Clearance w eGFR Random Glucose 100 Calcium 8.5 Total Bilirubin AST ALT Alkaline Phosphatase Creatine Kinase Troponin I < 0.02 Total Protein Albumin TSH Serum , Qual Active Medications Generic Name Dose Route Start Last Admin Trade Name Freq PRN Reason Stop Dose Admin Diltiazem HCl 30 mg 06/25/17 12:00 Cardizem - PO Q6HPO RAINE Enoxaparin Sodium 50 mg 06/25/17 11:30 Lovenox - SQ BID RAINE Sodium Chloride 1,000 mls @ 75 mls/hr 06/25/17 06:45 06/25/17 07:00 Normal Saline - IV 75 mls/hr ASDIR RAINE Administration Metoprolol Succinate 50 mg 06/26/17 10:00 Toprol Xl - PO DAILY [facility] ASSESSMENT/PLAN: Patient is a 32 year old female with a PMHx of afib s/p ablation who presented with an episode of palpitations and increased heart rate. Palpitations - secondary to atrial flutter - cardiology consulted, Dr Gay has seen - Echo- could not read EF because of tachycardia - EKGs show atrial flutter - Lopressor 10mg IV given - Toprol XL 50mg PO daily - Cardizem 30mg PO q6h (hold if HR< 120) - Lovenox 50mg bid - fluids to maintain BP- currently on 75/ml of NS - Monitor BP and MAP - Repeat ECHO in am - previous trops negative, pending repeat F/E/N - NS at 75cc/hr - electrolytes within normal limits - replete as necessary - regular diet DVT PPx - on lovenox Disposition - on telemetry unit Visit type - Emergency Visit Emergency Visit: Yes ED Registration Date: 06/24/17 Care time: The patient presented to the Emergency Department on the above date and was hospitalized for further evaluation of their emergent condition. - New Patient This patient is new to me today: Yes Date on this admission: 06/25/17 - Critical Care Critical Care patient: No - Discharge Referral Referred to [facility] Med P.C.: No
--- NOTE | 2017-06-25 13:12 | EKG ---
Test Reason : Blood Pressure : / mmHG Vent. Rate : 140 BPM Atrial Rate : 050 BPM P-R Int : 000 ms QRS Dur : 078 ms QT Int : 336 ms P-R-T Axes : 000 040 042 degrees QTc Int : 512 ms SUPRAVENTRICULAR TACHYCARDIA OTHERWISE NORMAL ECG WHEN COMPARED WITH ECG OF 25-JUN-2017 00:57, SINUS RHYTHM HAS REPLACED ATRIAL FLUTTER Confirmed by BELINDA JOHN MD ([id number]) on 06/25/2017 1:11:53 PM Referred By: Confirmed By:BELINDA JOHN MD
--- NOTE | 2017-06-25 13:12 | EKG ---
Test Reason : Blood Pressure : / mmHG Vent. Rate : 148 BPM Atrial Rate : 148 BPM P-R Int : 126 ms QRS Dur : 064 ms QT Int : 322 ms P-R-T Axes : 072 014 -19 degrees QTc Int : 505 ms POOR DATA QUALITY, INTERPRETATION MAY BE ADVERSELY AFFECTED SINUS TACHYCARDIA NONSPECIFIC T WAVE ABNORMALITY ABNORMAL ECG WHEN COMPARED WITH ECG OF 25-JUN-2017 00:58, ST NO LONGER ELEVATED IN INFERIOR LEADS ST NOW DEPRESSED IN ANTERIOR LEADS Confirmed by ALVARO PIPER, BELINDA ([id number]) on 06/25/2017 1:11:50 PM Referred By: Confirmed By:BELINDA JOHN MD
[2017-06-25] MEDS: dilTIAZem HCL 30 MG TABLET (FP) PO SCH ×2 (13:32→18:00)
[2017-06-25] MEDS: ENOXAPARIN NA (PORCINE) 60 MG/0.6 ML DISP.SYRIN SQ SCH ×2 (13:33→21:14)
--- NOTE | 2017-06-25 14:24 | MSN ---
Progress Note (short form) - Note Progress Note: CHIEF COMPLAINT: palpitations PCP: Dr. King (PCP), Dr. Aftab Malhotra (Gang Investigator) HISTORY OF PRESENT ILLNESS: Olga Robles is a 32 year old female with a PMHx of afib diagnosed in 2010 s/p ablation in 2016 who was admitted to the hospital for palpitations. Patient previously had palpitation symptoms prior to ablation but did not have any symptoms until 2017 when she was treated at [facility]. Afterwards patient was started on Toprol Xl 50mg daily. Patient did not have any further episodes until this current admission. Patient stated that on current episode she had palpitations, dizziness, lightheadedness, and shortness of breath. Patient denied fevers, chills, n/v, recent sick contacts, recent travel. In the ED, EKG showed atrial flutter and follow up EKGs showed atrial flutter and sinus tachycardia. Patient was given IV cardizem 20mg and felt lightheaded and her HR dropped into the 40s and BP 70s/40s. Subsequently, patient was given atropine and IV fluids and improved. Patient in the morning had HR in the 140s and BP 100s/70s. Patient was seen and examined at the bedside. Patient stated that she continued to feel palpitations but no longer had any shortness of breath, lightheadedness , dizziness. Patient endorsed some fatigue. Patient denied fevers, chills, n/v/c /d, chest pain, adb pain, cough, blurry/double vision. PAST MEDICAL HISTORY: afib (diagnosed in 2010) PAST SURGICAL HISTORY: ablation in 2016 Social History: Smoking: denies Alcohol: rare Drugs: denies Family History: twin sister has similar condition, daughter has a "hole in her heart" REVIEW OF SYSTEMS CONSTITUTIONAL: fatigue Absent: fever, chills, diaphoresis, generalized weakness, malaise, loss of appetite, weight change HEENT: Absent: rhinorrhea, nasal congestion, throat pain, throat swelling, difficulty swallowing, mouth swelling, ear pain, eye pain, visual changes CARDIOVASCULAR: palpitations Absent: chest pain, syncope, irregular heart rate, lightheadedness, peripheral edema RESPIRATORY: Absent: cough, shortness of breath, dyspnea with exertion, orthopnea, wheezing, stridor, hemoptysis GASTROINTESTINAL: Absent: abdominal pain, abdominal distension, nausea, vomiting, diarrhea, constipation, melena, hematochezia GENITOURINARY: Absent: dysuria, frequency, urgency, hesitancy, hematuria, flank pain, genital pain MUSCULOSKELETAL: Absent: myalgia, arthralgia, joint swelling, back pain, neck pain SKIN: Absent: rash, itching, pallor HEMATOLOGIC/IMMUNOLOGIC: Absent: easy bleeding, easy bruising, lymphadenopathy, frequent infections ENDOCRINE: Absent: unexplained weight gain, unexplained weight loss, heat intolerance, cold intolerance NEUROLOGIC: Absent: headache, focal weakness or paresthesias, dizziness, unsteady gait, seizure, mental status changes, bladder or bowel incontinence PSYCHIATRIC: Absent: anxiety, depression, suicidal or homicidal ideation, hallucinations. PHYSICAL EXAMINATION GENERAL: Awake, alert, and fully oriented, in mild distress over current episode. HEAD: Normal with no signs of trauma. EYES: Pupils equal, round and reactive to light, extraocular movements intact, sclera anicteric, conjunctiva clear. No lid lag. EARS, NOSE, THROAT: Ears normal, nares patent, oropharynx clear without exudates. Moist mucous membranes. NECK: Normal range of motion, supple without lymphadenopathy, JVD, or masses. LUNGS: Breath sounds equal, clear to auscultation bilaterally. No wheezes, and no crackles. No accessory muscle use. HEART: Tachycardic irregular, normal S1 and S2. Unable to appreciate murmurs, rubs gallops due to tachycardia ABDOMEN: Soft, nontender, not distended, normoactive bowel sounds, no guarding, no rebound, no masses. No hepatomegaly or splenomegaly. MUSCULOSKELETAL: Normal range of motion at all joints. No bony deformities or tenderness. UPPER EXTREMITIES: 2+ pulses, warm, well-perfused. No cyanosis. No clubbing. Cap refill <2 seconds. No peripheral edema. LOWER EXTREMITIES: 1+ pulses, warm, well-perfused. No calf tenderness. No peripheral edema. NEUROLOGICAL: Cranial nerves II-XII intact. Normal speech. Normal gait. PSYCHIATRIC: Cooperative. Good eye contact. Appropriate mood and affect. SKIN: Warm, dry, normal turgor, no rashes or lesions noted. Last Vital Signs Temp Pulse Resp BP Pulse Ox 98.6 F 110 H 18 91/68 100 06/25/17 13:33 06/25/17 13:33 06/25/17 13:33 06/25/17 13:33 06/25/17 10:00 Allergies Allergy/AdvReac Type Severity Reaction Status Date / Time No Known Allergies Allergy Verified 06/24/17 17:02 CBC, BMP 06/25/17 05:30 06/25/17 05:30 CMP Sodium 143 mmol/L (136-145) 06/25/17 05:30 Potassium 4.1 mmol/L (3.5-5.1) 06/25/17 05:30 Chloride 113 mmol/L (98-107) H 06/25/17 05:30 Carbon Dioxide 26 mmol/L (21-32) 06/25/17 05:30 Anion Gap 4 (8-16) L 06/25/17 05:30 BUN 11 mg/dL (7-18) 06/25/17 05:30 Creatinine 0.7 mg/dL (0.55-1.02) 06/25/17 05:30 Creat Clearance w eGFR > 60 (>60) 06/24/17 17:25 Random Glucose 100 mg/dL (74-106) 06/25/17 05:30 Calcium 8.5 mg/dL (8.5-10.1) 06/25/17 05:30 Total Bilirubin 0.5 mg/dL (0.2-1.0) 06/24/17 17:25 AST 17 U/L (15-37) 06/24/17 17:25 ALT 17 U/L (12-78) 06/24/17 17:25 Alkaline Phosphatase 86 U/L (45-117) 06/24/17 17:25 Creatine Kinase 59 IU/L (26-192) 06/24/17 23:30 Troponin I < 0.02 ng/ml (0.00-0.05) 06/25/17 05:30 Total Protein 7.1 g/dl (6.4-8.2) 06/24/17 17:25 Albumin 3.5 g/dl (3.4-5.0) 06/24/17 17:25 TSH 3.25 uIU/ml (0.358-3.74) 06/24/17 23:30 Serum , Qual Negative 06/24/17 17:33 Abnormal Lab Results 06/24/17 06/24/17 06/25/17 17:25 17:25 05:30 MPV 7.2 L 7.1 L Chloride 111 H Anion Gap 6 L 06/25/17 05:30 MPV Chloride 113 H Anion Gap 4 L Current Medications Generic Name Dose Route Start Last Admin Trade Name Cathleen PRN Reason Stop Dose Admin Diltiazem HCl 30 mg 06/25/17 12:00 06/25/17 13:32 Cardizem - PO 30 mg Q6HPO RAINE Administration Enoxaparin Sodium 50 mg 06/25/17 11:30 06/25/17 13:33 Lovenox - SQ 50 mg BID RAINE Administration Sodium Chloride 1,000 mls @ 75 mls/hr 06/25/17 06:45 06/25/17 07:00 Normal Saline - IV 75 mls/hr ASDIR RAINE Administration Metoprolol Succinate 50 mg 06/26/17 10:00 Toprol Xl - PO DAILY RAINE IMAGING: CHEST X-RAY: no acute pathology noted ECHOCARDIOGRAM: moderate mitral valve regurgitation, EF not well appreciated ASSESSMENT/PLAN: Patient is a 32 year old female with a PMHx of afib s/p ablation who presents with an episode of palpitations and increased heart rate. Palpitations - secondary to atrial flutter - cardiology consulted, recs appreciated - Echo as above - EKGs show atrial flutter - Lopressor 10mg IV given - Toprol XL 50mg PO daily - Cardizem 30mg PO q6h - Lovenox 50mg bid - fluids to maintain BP - NS if blood pressure drops - repeat echo in the morning for better visualization F/E/N - NS at 75cc/hr - electrolytes within normal limits - replete as necessary - regular diet DVT PPx - on lovenox Disposition - on telemetry unit Problem List - Problems (1) Abnormal EKG Code(s): R94.31 - ABNORMAL ELECTROCARDIOGRAM [ECG] [EKG] (2) Atrial flutter with rapid ventricular response Code(s): I48.92 - UNSPECIFIED ATRIAL FLUTTER
[2017-06-26] MEDS: dilTIAZem HCL 30 MG TABLET (FP) PO SCH ×3 (00:14→11:51)
[2017-06-26 06:29] LABS: BASO % 0.7 % (0-2.0); HEMATOCRIT 32.1 % (32.4-45.2); LYMPH % 32.1 % (8-40); MCH 27.8 pg (25.7-33.7); MCHC 34.2 g/dl (32.0-36.0); MEAN CELL VOLUME 81.4 fl (80-96); MEAN PLT VOLUME 7.5 fl (7.5-11.1); MONO % 6.9 % (3.8-10.2); NEUT % 58.3 % (42.8-82.8); PLATELET COUNT 196 K/MM3 (134-434); RBC 3.94 M/mm3 (3.60-5.2); RDW 14.8 % (11.6-15.6); WHITE BLOOD COUNT 7.6 K/mm3 (4.0-10.0)
[2017-06-26 07:16] LABS: ALBUMIN 2.8 g/dl (3.4-5.0); ANION GAP 6 (8-16); BLOOD UREA NITROGEN 14 mg/dL (7-18); CALCIUM 7.5 mg/dL (8.5-10.1); CHLORIDE 113 mmol/L (98-107); CO2 25 mmol/L (21-32); CREATININE 0.6 mg/dL (0.55-1.02); GLUCOSE,RANDOM 81 mg/dL (74-106); MAGNESIUM 1.9 mg/dL (1.8-2.4); PHOSPHOROUS 3.4 mg/dL (2.5-4.9); POTASSIUM 3.9 mmol/L (3.5-5.1); SGOT/AST 11 U/L (15-37); SGPT/ALT 15 U/L (12-78); SODIUM 144 mmol/L (136-145)
[2017-06-26 07:17] LABS: ALK PHOS 68 U/L (45-117); BILIRUBIN,TOTAL 0.3 mg/dL (0.2-1.0); TOT PROT 5.6 g/dl (6.4-8.2)
--- NOTE | 2017-06-26 07:48 | PN ---
Teaching Attending Note Name of Resident: Mame Jefferson ATTENDING PHYSICIAN STATEMENT I saw and evaluated the patient. I reviewed the resident's note and discussed the case with the resident. I agree with the resident's findings and plan as documented with exceptions below. SUBJECTIVE: patient seen and examined. feels better. no further palpitations. OBJECTIVE: Vital Signs Period Temp Pulse Resp BP Sys/Elizabeth Pulse Ox Last 24 Hr 98.2 F-98.6 F 74-148 18-26 84-102/51-75 95-100 Intake & Output 06/23/17 06/24/17 06/25/17 06/26/17 23:59 23:59 23:59 23:59 Intake Total 2150 1400 Balance 2150 1400 Weight 115 lb 115 lb General: sitting in bed in no acute distress Chest: CTAB, no rales or wheezing CVS: S1S2 regular Home Medication List Medication Instructions Recorded Confirmed Type Metoprolol Succinate [Toprol XL -] 50 mg PO DAILY 08/19/16 06/25/17 History Metoprolol Tartrate 25 mg PO QID PRN MDD 100 06/24/17 History Propafenone HCl 225 mg PO DAILY PRN 06/24/17 06/24/17 History Active Medications Generic Name Dose Route Start Last Admin Trade Name Freq PRN Reason Stop Dose Admin Diltiazem HCl 30 mg 06/25/17 12:00 06/26/17 05:28 Cardizem - PO Not Given Q6HPO RAINE Enoxaparin Sodium 50 mg 06/25/17 11:30 06/25/17 21:14 Lovenox - SQ 50 mg BID RAINE Administration Sodium Chloride 1,000 mls @ 75 mls/hr 06/25/17 06:45 06/25/17 07:00 Normal Saline - IV 75 mls/hr ASDIR RAINE Administration Metoprolol Succinate 50 mg 06/26/17 10:00 Toprol Xl - PO DAILY [facility] Laboratory Results - last 24 hr 06/25/17 06/26/17 09:40 05:03 WBC 7.6 RBC 3.94 Hgb 11.0 D Hct 32.1 L D MCV 81.4 MCH 27.8 MCHC 34.2 RDW 14.8 Plt Count 196 D MPV 7.5 Neutrophils % 58.3 Lymphocytes % 32.1 D Monocytes % 6.9 Eosinophils % 2.0 Basophils % 0.7 Creatine Kinase 55 Troponin I < 0.02 2D echo results reviewed ASSESSMENT AND PLAN: 32 yof with pMHx of paroxysmal Afib diagnosed in 2010, s/p ablation 10/11/2015, recently admitted with afib with RVR when d/price on Toprol XL 50 mg and Propafenone, comes with palpitations, found in rapid afib/aflutter, ED course complicated by bradycardia/hypotension after receiving 20 mg IV cardizem, requiring Atropine x 1. -Atrial fibrillation/Flutter with RVR -Bradycardia/hypotension after 20 mg IV cardizem IV in ED requiring IV Atropine , resolved. Plan: In NSR, no further cardizem needed. Toprol XL 50 mg daily. On Lovenox 50 mg BID. 2D echo results noted. TSH WNL Discussed with Dr. Desir, follow up repeat 2D echo today and anticipate d/ c on medication regimen later today accordingly. Plan discussed with patient, all questions answered.
[2017-06-26] MEDS: ENOXAPARIN NA (PORCINE) 60 MG/0.6 ML DISP.SYRIN SQ SCH (10:24)
[2017-06-26 13:45] VITALS: BP 95/55; PULSE 74; TEMP 98.5
--- NOTE | 2017-06-26 14:06 | PN ---
Progress Note, Physician Chief Complaint: Pt A&Ox3; asymptomatic. History of Present Illness: HISTORY OF PRESENT ILLNESS: 32 yr old woman with PMHx A-fib and her air moving technician from [facility] (Dr. Orestes Malhotra) did an ablation in 2016,, which did put her back into a normal rhythm, which is why she's not on an anticoagulant. She states he did keep her on metoprolol and she takes propafenone only if she feels palpitations. She states she took a propafenone this morning after having the palpitations but it did not help. She also admits to feeling lightheaded. She denies fever, chills, cough, hemoptysis, CP, SOB, abd pain, n/ v/d, calf pain, recent travel, smoking history, control use. PMD is at [facility] Blender Laborer is Dr. Aftab Malhotra [facility] - Current Medication List Current Medications: Active Medications Apixaban (Eliquis -) 5 mg PO BID [facility] Diltiazem HCl (Cardizem -) 30 mg PO Q6HPO [facility] Last Admin: 06/26/17 11:51 Dose: Not Given Enoxaparin Sodium (Lovenox -) 50 mg SQ BID [facility] Last Admin: 06/26/17 10:24 Dose: 50 mg Metoprolol Succinate (Toprol Xl -) 50 mg PO DAILY [facility] Last Admin: 06/26/17 10:24 Dose: 50 mg - Objective Vital Signs: Vital Signs Temperature 98.5 F 06/26/17 13:43 Pulse Rate 74 06/26/17 13:43 Respiratory Rate 18 06/26/17 13:43 Blood Pressure 95/55 06/26/17 13:43 O2 Sat by Pulse Oximetry (%) 96 06/26/17 11:00 Constitutional: Yes: Calm Eyes: Yes: WNL HENT: Yes: WNL Neck: Yes: WNL Cardiovascular: Yes: S1, S2 Respiratory: Yes: WNL Gastrointestinal: Yes: WNL ...Rectal Exam: Yes: Deferred Genitourinary: No: Anuria Breast(s): Yes: WNL Musculoskeletal: Yes: WNL Extremities: Yes: WNL Edema: No Peripheral Pulses WNL: Yes Integumentary: Yes: WNL Wound/Incision: Yes: Clean/Dry Neurological: Yes: WNL Psychiatric: Yes: WNL Labs: CBC, BMP 06/26/17 05:03 06/26/17 05:03 Problem List - Problems (1) Paroxysmal atrial fibrillation Assessment/Plan: Pt is now in normal sinus rhythm. ECHO repeat (in sinus rhythm): normal LVEF, normal chamber sizes, mild TR and MR. TSH WNL. Discussed her case with Dr. Orestes Malhotra, her EP at [place]. Pt will be discharged on metoprolol ER 50 mg daily. Restart apixaban 5 mg bid in anticipation of repeat ablation procedure in 3-4 weeks. Pt to see Dr. Malhotra in followup next week. 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 As agreed with Dr. Handy, until cleared by Dr. Malhotra, she should not return to work. Code(s): I48.0 - PAROXYSMAL ATRIAL FIBRILLATION
--- NOTE | 2017-06-26 14:11 | MSN ---
Progress Note (short form) - Note Progress Note: CHIEF COMPLAINT: palpitations PCP: Dr. King (PCP), Dr. Aftab Malhotra (Consultant Electronics) HISTORY OF PRESENT ILLNESS: Overnight, patient did not have any acute events. Patient converted to sinus rhythm in the morning of 06/25 after receiving PO cardizem. Patient was seen and examined at the bedside. Patient stated that she did not have any palpitations, shortness of breath, fatigue, chest pain, arm pain, abd pain, back pain, dizziness, lightheadedness, n/v/c/d, urinary complaints. PAST MEDICAL HISTORY: afib (diagnosed in 2010) PAST SURGICAL HISTORY: ablation in 2016 Social History: Smoking: denies Alcohol: rare Drugs: denies Family History: twin sister has similar condition, daughter has a "hole in her heart" REVIEW OF SYSTEMS CONSTITUTIONAL: Absent: fever, chills, diaphoresis, generalized weakness, malaise, loss of appetite, weight change, fatigue HEENT: Absent: rhinorrhea, nasal congestion, throat pain, throat swelling, difficulty swallowing, mouth swelling, ear pain, eye pain, visual changes CARDIOVASCULAR: Absent: chest pain, syncope, irregular heart rate, lightheadedness, peripheral edema, palpitations RESPIRATORY: Absent: cough, shortness of breath, dyspnea with exertion, orthopnea, wheezing, stridor, hemoptysis GASTROINTESTINAL: Absent: abdominal pain, abdominal distension, nausea, vomiting, diarrhea, constipation, melena, hematochezia GENITOURINARY: Absent: dysuria, frequency, urgency, hesitancy, hematuria, flank pain, genital pain MUSCULOSKELETAL: Absent: myalgia, arthralgia, joint swelling, back pain, neck pain SKIN: Absent: rash, itching, pallor HEMATOLOGIC/IMMUNOLOGIC: Absent: easy bleeding, easy bruising, lymphadenopathy, frequent infections ENDOCRINE: Absent: unexplained weight gain, unexplained weight loss, heat intolerance, cold intolerance NEUROLOGIC: Absent: headache, focal weakness or paresthesias, dizziness, unsteady gait, seizure, mental status changes, bladder or bowel incontinence PSYCHIATRIC: Absent: anxiety, depression, suicidal or homicidal ideation, hallucinations. PHYSICAL EXAMINATION GENERAL: Awake, alert, and fully oriented, in no apparent distress. HEAD: Normal with no signs of trauma. EYES: Pupils equal, round and reactive to light, extraocular movements intact, sclera anicteric, conjunctiva clear. No lid lag. EARS, NOSE, THROAT: Ears normal, nares patent, oropharynx clear without exudates. Moist mucous membranes. NECK: Normal range of motion, supple without lymphadenopathy, JVD, or masses. LUNGS: Breath sounds equal, clear to auscultation bilaterally. No wheezes, and no crackles. No accessory muscle use. HEART: Regular rate and rhythm, normal S1 and S2. No murmurs, rubs or gallops appreciated ABDOMEN: Soft, nontender, not distended, normoactive bowel sounds, no guarding, no rebound, no masses. No hepatomegaly or splenomegaly. MUSCULOSKELETAL: Normal range of motion at all joints. No bony deformities or tenderness. UPPER EXTREMITIES: 2+ pulses, warm, well-perfused. No cyanosis. No clubbing. Cap refill <2 seconds. No peripheral edema. LOWER EXTREMITIES: 1+ pulses, warm, well-perfused. No calf tenderness. No peripheral edema. NEUROLOGICAL: Cranial nerves II-XII intact. Normal speech. Normal gait. PSYCHIATRIC: Cooperative. Good eye contact. Appropriate mood and affect. SKIN: Warm, dry, normal turgor, no rashes or lesions noted. Last Vital Signs Temp Pulse Resp BP Pulse Ox 98.5 F 74 18 95/55 96 06/26/17 13:43 06/26/17 13:43 06/26/17 13:43 06/26/17 13:43 06/26/17 11:00 CBC, BMP 06/26/17 05:03 06/26/17 05:03 CMP Sodium 144 mmol/L (136-145) 06/26/17 05:03 Potassium 3.9 mmol/L (3.5-5.1) 06/26/17 05:03 Chloride 113 mmol/L (98-107) H 06/26/17 05:03 Carbon Dioxide 25 mmol/L (21-32) 06/26/17 05:03 Anion Gap 6 (8-16) L 06/26/17 05:03 BUN 14 mg/dL (7-18) 06/26/17 05:03 Creatinine 0.6 mg/dL (0.55-1.02) 06/26/17 05:03 Creat Clearance w eGFR > 60 (>60) 06/26/17 05:03 Random Glucose 81 mg/dL (74-106) 06/26/17 05:03 Calcium 7.5 mg/dL (8.5-10.1) L 06/26/17 05:03 Phosphorus 3.4 mg/dL (2.5-4.9) 06/26/17 05:03 Magnesium 1.9 mg/dL (1.8-2.4) 06/26/17 05:03 Total Bilirubin 0.3 mg/dL (0.2-1.0) D 06/26/17 05:03 AST 11 U/L (15-37) L 06/26/17 05:03 ALT 15 U/L (12-78) 06/26/17 05:03 Alkaline Phosphatase 68 U/L (45-117) 06/26/17 05:03 Creatine Kinase 55 IU/L (26-192) 06/25/17 09:40 Troponin I < 0.02 ng/ml (0.00-0.05) 06/25/17 09:40 Total Protein 5.6 g/dl (6.4-8.2) L 06/26/17 05:03 Albumin 2.8 g/dl (3.4-5.0) L 06/26/17 05:03 TSH 3.25 uIU/ml (0.358-3.74) 06/24/17 23:30 Serum , Qual Negative 06/24/17 17:33 Abnormal Lab Results 06/26/17 06/26/17 05:03 05:03 Hct 32.1 L D Chloride 113 H Anion Gap 6 L Calcium 7.5 L AST 11 L Total Protein 5.6 L Albumin 2.8 L Active Medications Generic Name Dose Route Start Last Admin Trade Name Freq PRN Reason Stop Dose Admin Apixaban 5 mg 06/26/17 20:00 Eliquis - PO BID RAINE Diltiazem HCl 30 mg 06/25/17 12:00 06/26/17 11:51 Cardizem - PO Not Given Q6HPO RAINE Metoprolol Succinate 50 mg 06/26/17 10:00 06/26/17 10:24 Toprol Xl - PO 50 mg DAILY RAINE Administration IMAGING: CHEST X-RAY: no acute pathology noted ECHOCARDIOGRAM: moderate mitral valve regurgitation, EF not well appreciated REPEAT ECHOCARDIOGRAM: left ventricular size and function within normal limits, right ventricle within normal limits, mild tricuspid regurgitation, trace mitral regurgitation ASSESSMENT/PLAN: Patient is a 32 year old female with a PMHx of afib s/p ablation who presents with an episode of palpitations and increased heart rate. Palpitations - secondary to atrial flutter - cardiology consulted, recs appreciated - Echos as above - EKGs show atrial flutter - Lopressor 10mg IV given - Toprol XL 50mg PO daily - Cardizem 30mg PO q6h prn - Lovenox 50mg bid - NS if blood pressure drops - repeat echo as above - patient to be discharged on Toprol XL 50mg, propafenone prn, Elliquis 5mg daily. - will f/u with road oiler for repeat ablation - advised not to return to work until cleared by road oiler, post ablation F/E/N - no further fluids necessary - electrolytes within normal limits - replete as necessary - regular diet DVT PPx - on lovenox Disposition - stable for discharge - will f/u with road oiler for repeat ablation Problem List - Problems (1) Abnormal EKG Code(s): R94.31 - ABNORMAL ELECTROCARDIOGRAM [ECG] [EKG] (2) Atrial flutter with rapid ventricular response Code(s): I48.92 - UNSPECIFIED ATRIAL FLUTTER
--- NOTE | 2017-06-26 15:10 | DS ---
Physical Exam: SUBJECTIVE: Patient seen and examined. No palpitations, dyspnea, or chest pain overnight. Feels much better. Wants to go home. Has been in sinus rhythm and rate controlled since the am (10am) yesterday. OBJECTIVE: Vital Signs Period Temp Pulse Resp BP Sys/Elizabeth Pulse Ox Last 24 Hr 98.2 F-98.6 F 74-94 18-26 90-102/55-72 95-100 Vital Signs Temp 98.5 F 06/26/17 14:00 Pulse 74 06/26/17 14:00 Resp 18 06/26/17 14:00 BP 95/55 06/26/17 14:00 Pulse Ox 96 06/26/17 11:00 PHYSICAL EXAM GENERAL: The patient is awake, alert, and fully oriented, in no acute distress. HEAD: Normal with no signs of trauma. EYES: PERRL, extraocular movements intact ENT: moist mucous membranes. NECK: supple, no JVD. LUNGS: Breath sounds equal, clear to auscultation bilaterally, no wheezes, no crackles, no accessory muscle use. HEART: Regular rate and rhythm, S1, S2 without murmur, rub or gallop. ABDOMEN: Soft, nontender, nondistended, normoactive bowel sounds, EXTREMITIES: 2+ pulses, warm, well-perfused, no edema. NEUROLOGICAL: Cranial nerves II through XII grossly intact. Normal speech, no facial droop, intact sensations, normal muscle strength and tone globally LABS Laboratory Results - last 24 hr 06/25/17 06/25/17 06/26/17 05:30 09:40 05:03 WBC 7.6 RBC 3.94 Hgb 11.0 D Hct 32.1 L D MCV 81.4 MCH 27.8 MCHC 34.2 RDW 14.8 Plt Count 196 D MPV 7.5 Neutrophils % 58.3 Lymphocytes % 32.1 D Monocytes % 6.9 Eosinophils % 2.0 Basophils % 0.7 Sodium Potassium Chloride Carbon Dioxide Anion Gap BUN Creatinine Creat Clearance w eGFR Random Glucose Calcium Phosphorus Cancelled Magnesium Cancelled Total Bilirubin AST ALT Alkaline Phosphatase Creatine Kinase 55 Troponin I < 0.02 Total Protein Albumin 06/26/17 05:03 WBC RBC Hgb Hct MCV MCH MCHC RDW Plt Count MPV Neutrophils % Lymphocytes % Monocytes % Eosinophils % Basophils % Sodium 144 Potassium 3.9 Chloride 113 H Carbon Dioxide 25 Anion Gap 6 L BUN 14 Creatinine 0.6 Creat Clearance w eGFR > 60 Random Glucose 81 Calcium 7.5 L Phosphorus 3.4 Magnesium 1.9 Total Bilirubin 0.3 D AST 11 L ALT 15 Alkaline Phosphatase 68 Creatine Kinase Troponin I Total Protein 5.6 L Albumin 2.8 L HOSPITAL COURSE: Date of Admission:06/24/17 Date of Discharge: 06/26/17 Prehospital Course: 32yo young woman with PMH of Afib (dx 2010) s/p ablation in 2016 and thus not on A/C, who presented with acute onset of palpitations for one day. Patient reported being rate controlled after the ablation until last year when she had episode of palpitations and was admitted to [facility]. She followed-up with her Clearance Cutter after that episode, and was continued on Toprol Xl 50mg daily. She did not have any other episodes until the day of presentation. She took Propafenone 225mcg and Metoprolol Tartarte 25mg x 2 today (PRN Rx) with no improvement in her palpitations. She also endorsed some lightheaded and shortness of breath. Hospital course: In the Emergency room: EKGs done showed: (1) EKG #1: A flutter, rate 98/ EKG#2 Sinus tach, rate 107/ EKG#3 Sinus tach, rate 127 Medications: Pt received Cardizem 20mg IVP then felt increasing lightheadedness , She developed Irreg HR 38-45's with BP 70/40's. Then, Patient was given Atropine 1mg IVP and IVF with improved hemodynamics - IRR HR 60-70's with BP 102/76 Pt was placed in tele: Around 9am the next day, her heart rate remained consistently in the 140s and repeat EKG showed Atrial flutter with ventricular rates in 140s She was given a total of 10mg lopressor after which she converted to sinus rhythm and remained in sinus rhythm at an average ventricular rate in the 70s. Pt remained in sinus rhythm and regular rate free of chest pain, shortness of breath or palpitations until discharge. She had 2 TTEs done, the repeat was necessary since her initial tachycardia prevented the EF from being accurately assessed. Repeat ECHO 06/26/17: in sinus rhythm showed normal LVEF, normal chamber sizes, mild TR and MR. TSH WNL. 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 Orestes Malhotra, her EP at [facility]. She was discharged on metoprolol ER 50 mg daily, and restarted apixaban 5 mg bid in anticipation of repeat ablation procedure in 3-4 weeks. Pt was discharged to see Dr. Malhotra in followup next week. Minutes to complete discharge: 45 Discharge Summary Reason For Visit: PALPITATIONS,PAROXYSMAL ATRIAL FIBRILLATION Current Active Problems Chest pain (Acute) Condition: Stable - Instructions Diet, Activity, Other Instructions: Take all the medications as prescribed. Continue with your toprol xl 50 mg daily. Take all your medications as you were taking it before. we have started you on eliquis 5mg twice a day. ( This is anticoagulant). Prescription has been sent to your pharmacy. Watch for bleeding from gums, nose, urine and stool. Follow up with your demonstrator sewing techniques Dr Hobson. with in week. Follow up with your own demonstrator sewing techniques or Dr. Gay with in one week. Your TSH in hospital is 3.25. Don't do heavy work, don't lift weight, don't go to gym until you follow up with your demonstrator sewing techniques and get clearance. For now you can do light work and desk work. If you develop chest pain, shortness of breath, palpitations call MD or come to hospital. Referrals: Owen Gay MD [Staff Physician] - 1 Week Disposition: HOME - Home Medications Comprehensive Discharge Medication List: Ambulatory Orders Metoprolol Succinate [Toprol XL -] 50 mg PO DAILY 08/19/16 Metoprolol Tartrate 25 mg PO QID PRN MDD 100 06/24/17 Propafenone HCl 225 mg PO DAILY PRN 06/24/17 Apixaban [Eliquis -] 5 mg PO BID #60 tablet 06/26/17 This patient is new to me today: No Emergency Visit: Yes ED Registration Date: 06/24/17 Care time: The patient presented to the Emergency Department on the above date and was hospitalized for further evaluation of their emergent condition. Critical Care patient: No - Discharge Referral Referred to [facility] No
[2017-06-26] MEDS ORDERED: APIXABAN 5 MG TABLET PO SCH (22:00)
[2017-06-27] MEDS ORDERED: APIXABAN 5 MG TABLET PO SCH (10:00)
== END 2017-06-26 15:15 | disposition home or self-care (01) | DRG 201 ==
LOC: JER 16:57 → JERFT 16:57 → JERBED 23:29 → J2W 06-25 01:01
PROVIDERS: ADMIT Internal Medicine; ATTEND Hospitalist
DX: I48.0 Paroxysmal atrial fibrillation (principal); I48.92 Unspecified atrial flutter; R00.0 Tachycardia, unspecified; R94.31 Abnormal electrocardiogram [ECG] [EKG]; I08.1 Rheumatic disorders of both mitral and tricuspid valves
CPT/HCPCS: 36415; 71045-TC-FY; 80048; 80053; 82550; 83735; 84100; 84443; 84484; 84703; 85025; 85027; 93005; 93010; 93306-TC; 99284-25; J1644; J7030

== ENCOUNTER 2017-06-27 10:08 | Emergency (ER) | payer OTHER ==
[2017-06-27 10:30] VITALS: TEMP 98; BMI 20.3
[2017-06-27] MEDS ORDERED: SODIUM CHLORIDE 0.9% 1000 ML INFUS.BAG IV ONE (10:42)
--- NOTE | 2017-06-27 10:42 | PDOC ---
History of Present Illness - General History Source: Patient Exam Limitations: No Limitations - History of Present Illness Initial Comments: 06/27/17 11:02 The patient is a 32 year old female, with a significant PMH of atrial fibrillation, who presents to the emergency department with lightheadedness and dizziness beginning this morning. The patient states she first noted the lightheadedness and dizziness while she was walking to the pharmacy this morning. The patient states the lightheadedness and dizziness was alleviated when she sat back down in her car after leaving the pharmacy. The patient states she then drove to her ostomy nurse appointment with Dr. Desir and had another episode of lightheadedness when she was getting out of the car. The patient states that the lightheadedness and dizziness is made worse when changing positions and alleviated while sitting or laying down. The patient also states she was evaluated here at [facility] [place] yesterday for atrial fibrillation and discharged home. The patient states her symptoms today do not feel the same as her atrial fibrillation. The patient states she had a normal breakfast this morning. The patient denies any chest pain, palpitations, LOC, shortness of breath, leg swelling, calf tenderness or nausea. Denies headache, fever, chills, nausea, vomit, diarrhea and constipation. Denies dysuria, frequency, urgency and hematuria. Allergies: NKA Social history: No reported Supervisor Modern Languages: Dr. Desir. <Gui Guillen - Last Filed: 06/27/17 13:10> <Kin Redd - Last Filed: 06/27/17 13:24> - General Chief Complaint: Lightheaded Stated Complaint: DIZZINESS Time Seen by Provider: 06/27/17 10:24 Past History <Gui Guillen - Last Filed: 06/27/17 13:10> - Past Medical History Anemia: No Asthma: No Cancer: No Cardiac Disorders: Yes (AFIB 2010 - ABLATION 2015) CVA: No COPD: No CHF: No Dementia: No Diabetes: No GI Disorders: No Disorders: No HTN: No Hypercholesterolemia: No Liver Disease: No Seizures: No Thyroid Disease: No - Surgical History Abdominal Surgery: No Appendectomy: No Cardiac Surgery: No Cholecystectomy: No Lung Surgery: No Neurologic Surgery: No Orthopedic Surgery: No - Reproductive History (#): 3 Para: 2 Cervical CA: No Dysfunctional Uterine Bleeding: No Ectopic : No Endometrial CA: No Polycystic Ovaries: No Therapeutic (s) & number: No Tubal Ligation: No Spontaneous : 1 - Suicide/Smoking/Psychosocial Hx Smoking History: Never smoked Have you smoked in the past 12 months: No Information on smoking cessation initiated: No Hx Alcohol Use: No Drug/Substance Use Hx: No Substance Use Type: None Hx Substance Use Treatment: No <Kin Redd - Last Filed: 06/27/17 13:24> - Past Medical History Allergies/Adverse Reactions: Allergies Allergy/AdvReac Type Severity Reaction Status Date / Time No Known Allergies Allergy Verified 06/27/17 10:30 Home Medications: Ambulatory Orders Metoprolol Succinate [Toprol XL -] 50 mg PO DAILY 08/19/16 Apixaban [Eliquis -] 5 mg PO BID #60 tablet 06/26/17 Review of Systems - Review of Systems Comments:: 06/27/17 11:05 A complete review of 10 out of 10 review of systems is taken and is negative apart from what is previously mentioned below and in the HPI. <Gui Guillen - Last Filed: 06/27/17 13:10> *Physical Exam - Vital Signs Last Vital Signs Temp Pulse Resp BP Pulse Ox 98 F 77 18 110/73 100 06/27/17 10:26 06/27/17 10:26 06/27/17 10:26 06/27/17 10:26 06/27/17 10:26 - Physical Exam Comments: 06/27/17 11:05 Vitals: Triage vital signs reviewed General Appearance: No acute distress, well nourished, well developed Head: Atraumatic Eyes: Pupils equal reactive round, extraocular movement intact Ears: TM's normal bilaterally Nose: Nares patent bilaterally; no nasal congestion Throat: Posterior oropharynx without erythema, mucous membranes moist Neck: Supple; No nuchal rigidity Chest Wall: Nontender Cardiac: Regular rate and rhythm, no murmurs, no rubs, no gallops Lungs: Clear to auscultation bilateral, good air movement bilaterally Abdomen: Soft, nondistended, normal bowel sounds, nontender to palpation Rectal: Exam deferred Extremities: Full range of motion to all extremities, no cyanosis, clubbing, or edema Skin: Warm and dry, no rashes or lesions, no rash, no petechiae Neuro: AOX3; Cranial Nerves 2-12 grossly intact, Strength intact to all extremities, Sensation intact to all extremities Psych: Normal mood, normal affect <Gui Guillen - Last Filed: 06/27/17 13:10> - Vital Signs Last Vital Signs Temp Pulse Resp BP Pulse Ox 98 F 77 18 110/73 100 06/27/17 10:26 06/27/17 10:26 06/27/17 10:26 06/27/17 10:26 06/27/17 10:26 <Kin Redd - Last Filed: 06/27/17 13:24> Heart Score/ECG Review - ECG Impressions Comment:: 06/27/17 13:23 EKG performed at 10:40 AM demonstrates sinus rhythm 74 bpm. DC 138. QRS 74. QTC 437. No ST elevations T-wave inversion in V3. No evidence of WPW, Brugada, prolonged QT. Interpreted by me. <Kin Redd - Last Filed: 06/27/17 13:24> ED Treatment Course - LABORATORY CBC & Chemistry Diagram: 06/27/17 10:50 06/27/17 10:50 <Gui Guillen - Last Filed: 06/27/17 13:10> - LABORATORY CBC & Chemistry Diagram: 06/27/17 10:50 06/27/17 10:50 <Kin Redd - Last Filed: 06/27/17 13:24> Medical Decision Making - Medical Decision Making 06/27/17 11:06 The patient is a 32 year old female, with a significant PMH of atrial fibrillation, who presents to the emergency department with lightheadedness and dizziness beginning this morning. Plan: Labs/ blood work, EKG, Orthostatic vitals, IV fluids. 06/27/17 13:[address] Desir. Case discussed. <Gui Guillen - Last Filed: 06/27/17 13:10> - Medical Decision Making Differential diagnosis includes A. fib dehydration electrolyte imbalance anemia We'll check labs EKG observe and reassess On examination with change of position patient becomes symptomatic most likely this represents positional orthostasis We'll hydrate observe and reassess Reevaluation EKG labs all unremarkable status post 1 L fluid patient feels much better. No ambulating comfortably around the emergency department with no symptoms. Findings discussed with patient's ostomy nurse Dr. Kwan logan. Patient will call today for follow-up with her EP doctor Dr. Hobson for evaluation next week Findings, the need for follow-up, strict return instructions constipation. <Kin Redd - Last Filed: 06/27/17 13:24> *DC/Admit/Observation/Transfer - Attestations Scribe Attestion: 06/27/17 11:07 Documentation prepared by Gui Guillen, acting as medical office technology instructor for Kin Redd MD. <Gui Guillen - Last Filed: 06/27/17 13:10> - Discharge Dispostion Decision to Admit order: No <Kin Redd - Last Filed: 06/27/17 13:24> Diagnosis at time of Disposition: Light-headed - Discharge Dispostion Disposition: HOME Condition at time of disposition: Good - Referrals Referrals: Yanet Prince MD [Primary Care Provider] - Cesar Desir MD [Staff Physician] - - Patient Instructions Printed Discharge Instructions: Dehydration Additional Instructions: Follow-up with Dr. Hobson next week. Call his office today explained that you were in the emergency department. Drink plenty of fluids such as Gatorade. Return to the emergency Department for severe worsening symptoms or for any concerns. Follow-up with Dr. Karlee logan as scheduled. - Post Discharge Activity Forms/Work/School Notes: Back to Work
[2017-06-27 11:09] LABS: BASO % 0.5 % (0-2.0); EOS % 1.4 % (0-4.5); HEMATOCRIT 34.7 % (32.4-45.2); LYMPH % 16.4 % (8-40); MCH 28.1 pg (25.7-33.7); MCHC 34.4 g/dl (32.0-36.0); MEAN CELL VOLUME 81.7 fl (80-96); MEAN PLT VOLUME 7.1 fl (7.5-11.1); MONO % 6.8 % (3.8-10.2); NEUT % 74.9 % (42.8-82.8); PLATELET COUNT 221 K/MM3 (134-434); RBC 4.25 M/mm3 (3.60-5.2); RDW 14.6 % (11.6-15.6); WHITE BLOOD COUNT 7.6 K/mm3 (4.0-10.0)
[2017-06-27 11:31] LABS: ALBUMIN 3.4 g/dl (3.4-5.0); ANION GAP 4 (8-16); BILIRUBIN,TOTAL 0.5 mg/dL (0.2-1.0); BLOOD UREA NITROGEN 9 mg/dL (7-18); CALCIUM 8.4 mg/dL (8.5-10.1); CHLORIDE 111 mmol/L (98-107); CO2 30 mmol/L (21-32); CREATININE 0.7 mg/dL (0.55-1.02); GLUCOSE,RANDOM 64 mg/dL (74-106); POTASSIUM 3.7 mmol/L (3.5-5.1); SGOT/AST 10 U/L (15-37); SGPT/ALT 16 U/L (12-78); SODIUM 145 mmol/L (136-145); TOT PROT 6.8 g/dl (6.4-8.2)
[2017-06-27 11:34] LABS: ALK PHOS 78 U/L (45-117)
[2017-06-27 13:54] VITALS: BP 110/75; PULSE 75
--- NOTE | 2017-06-28 08:22 | EKG ---
Test Reason : Blood Pressure : / mmHG Vent. Rate : 074 BPM Atrial Rate : 074 BPM P-R Int : 138 ms QRS Dur : 074 ms QT Int : 394 ms P-R-T Axes : 067 057 -09 degrees QTc Int : 437 ms NORMAL SINUS RHYTHM NONSPECIFIC T WAVE ABNORMALITY ABNORMAL ECG WHEN COMPARED WITH ECG OF 25-JUN-2017 09:16, SINUS RHYTHM HAS REPLACED ATRIAL FLUTTER VENT. RATE HAS DECREASED BY 75 BPM Confirmed by ALVARO PIPER, BELINDA ([id number]) on 06/28/2017 8:21:39 AM Referred By: Confirmed By:BELINDA JOHN MD
== END 2017-06-27 13:40 | disposition home or self-care (01) ==
LOC: JER 10:08
PROC: 3E0337Z Introduction of Electrolytic and Water Balance Substance into Peripheral Vein, Percutaneous Approach (ICD-10-PCS; principal; 2017-06-27)
DX: R42 Dizziness and giddiness (principal); I48.91 Unspecified atrial fibrillation
CPT/HCPCS: 36415; 80053; 84484; 85025; 93005; 93010; 99284-25; J7030

== ENCOUNTER 2018-04-26 14:58 | Inpatient (IN) | payer OTHER ==
--- NOTE | 2018-04-26 15:29 | PDOC ---
History of Present Illness - General Chief Complaint: Pain Stated Complaint: ABD PAIN Time Seen by Provider: 04/26/18 15:29 History Source: Patient, Old Records Exam Limitations: No Limitations - History of Present Illness Initial Comments: HPI: 33 y/o female presenting to [facility] ER complaining of sudden onset on intense right lower quadrant pain. States the pain started spontaneously and has not remitted. Radiates throughout the lower abdomen without radiation to back or chest. Endorses a brief period of pain yesterday that was not as intense. Unable to identify eliciting factors. States her LMP was last week and she had an additional episode of vaginal bleeding yesterday. Endorses nausea without vomiting. Denies diarrhea or urinary symptoms. No h/o of abdominal surgery. 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 No longer taking anticoagulants. Past History - Past Medical History Allergies/Adverse Reactions: Allergies Allergy/AdvReac Type Severity Reaction Status Date / Time No Known Allergies Allergy Verified 04/26/18 15:03 Home Medications: Ambulatory Orders NK [No Known Home Medication] 04/26/18 Anemia: No Asthma: No Cancer: No Cardiac Disorders: Yes (AFIB 2010 - ABLATION 2015) CVA: No COPD: No CHF: No Dementia: No Diabetes: No GI Disorders: No Disorders: No HTN: No Hypercholesterolemia: No Liver Disease: No Seizures: No Thyroid Disease: No - Surgical History Abdominal Surgery: No Appendectomy: No Cardiac Surgery: No Cholecystectomy: No Lung Surgery: No Neurologic Surgery: No Orthopedic Surgery: No - Reproductive History (#): 3 Para: 2 Cervical CA: No Dysfunctional Uterine Bleeding: No Ectopic : No Endometrial CA: No Polycystic Ovaries: No Therapeutic (s) & number: No Tubal Ligation: No Spontaneous : 1 - Suicide/Smoking/Psychosocial Hx Smoking History: Never smoked Have you smoked in the past 12 months: No Hx Alcohol Use: No Drug/Substance Use Hx: No Substance Use Type: None Hx Substance Use Treatment: No Review of Systems - Review of Systems Able to Perform ROS?: Yes Comments:: In addition to that documented in the HPI above, the additional ROS was obtained : Constitutional: Denies fevers or chills Head: Denies headache ENMT: Denies sore throat CV: Denies chest pain Resp: Denies SOB GI: Per HPI : Per HPI MSK: Denies recent trauma Skin: Denies new rashes Neuro: Denies new numbness or tingling or weakness Endocrine: Denies polyuria Heme: Denies bleeding or bruising *Physical Exam - Vital Signs Last Vital Signs Temp Pulse Resp BP Pulse Ox 97.3 F L 83 18 116/57 L 99 04/26/18 15:00 04/26/18 15:00 04/26/18 15:00 04/26/18 15:00 04/26/18 15:00 - Physical Exam Comments: Constitutional: Well-developed, well-nourished adult female in obvious discomfort. Found left lateral decubitus position with knees to chest. Alert and oriented x4. Answered all questions appropriately and completely. Speech was non-labored, non-pressured. Head: Normocephalic. No obvious external signs of trauma. Eyes: Sclerae white. Ears: Hearing grossly intact. Nose: No nasal discharge. Neck: Supple, trachea is midline. Cardiovascular / Chest: Irregularly irregular rapid rate and rhythm. No murmur, rubs, clicks, or gallops. Peripheral pulses: radial pulses full. Respiratory: Breathing unlabored. Equal chest rise and fall. Clear to auscultation bilaterally. No stridor, no wheezing, no rhonchi. Gastrointestinal: abdomen is exquisitely tender in suprapubic and RLQ with rebound and guarding. Abdomen is soft and non-distended. No overlying skin lesions or obvious signs of trauma. Neuro: Alert and oriented. Moving all four extremities spontaneously. Skin: Pale, warm, dry, and intact. : No R or L CVA tenderness. Psych: Affect: appropriate. Mood: normal. Moderate Sedation - Procedure Monitoring Vital Signs: Procedure Monitoring Vital Signs Temperature 97.3 F L 04/26/18 15:00 Pulse Rate 83 04/26/18 15:00 Respiratory Rate 18 04/26/18 15:00 Blood Pressure 116/57 L 04/26/18 15:00 O2 Sat by Pulse Oximetry (%) 99 04/26/18 15:00 ED Treatment Course - LABORATORY CBC & Chemistry Diagram: 04/26/18 15:43 04/26/18 15:43 - ADDITIONAL ORDERS Additional order review: 04/26/18 04/26/1819 16:00 15:43 15:43 PT with INR 13.90 H INR 1.18 H Sodium 140 Potassium 3.3 L Chloride 106 Carbon Dioxide 27 Anion Gap 6 L BUN 12 Creatinine 0.7 Creat Clearance w eGFR > 60 Random Glucose 91 Lactic Acid Calcium 8.4 L Total Bilirubin 0.4 AST 7 L ALT 14 Alkaline Phosphatase 85 Total Protein 7.3 Albumin 3.8 Lipase 114 Beta HCG, Quant Serum , Qual Positive Blood Type Antibody Screen Crossmatch 04/26/18 04/26/18 04/26/18 15:40 15:40 15:40 PT with INR INR Sodium Potassium Chloride Carbon Dioxide Anion Gap BUN Creatinine Creat Clearance w eGFR Random Glucose Lactic Acid 2.0 Calcium Total Bilirubin AST ALT Alkaline Phosphatase Total Protein Albumin Lipase Beta HCG, Quant 1629.2 Serum , Qual Blood Type O NEGATIVE Antibody Screen Negative Crossmatch See Detail 04/26/18 15:43 RBC 4.38 MCV 84.1 MCHC 34.4 RDW 13.6 MPV 7.4 L Neutrophils % 63.5 Lymphocytes % 27.6 D Monocytes % 7.3 Eosinophils % 1.3 Basophils % 0.3 - RADIOLOGY Radiograph Interpretation: Transvaginal Ultrasound: Jose Miguel Pompa MD wrote on Apr 26, 2018 at 06:14 PM: Referring Physician: BISHOP ROC ORELLANA Finding(s) were verbally communicated by Val Cuevas to Roc Ellison MD on FriApril 26 2018 18:10:08 EDT THIS DOCUMENT HAS BEEN ELECTRONICALLY SIGNED Jose Miguel Pompa MD 04/26/2018 17:12 GAME PRESERVE MANAGER M.D. Please call Imaging Traffic Administrator [phone] ([phone]) with questions. Jose Miguel Pompa MD Comments: Jose Miguel Pompa MD wrote on Apr 26, 2018 at 05:54 PM: Referring Physician: BISHOP BRIAN Referring Physician: BISHOP BRIAN Patient Name: BERT ORELLANA THIS IS A PRELIMINARY REPORT FROM [facility] DATE OF SERVICE: 2018-04-26 16:58:34 IMAGES: 59 EXAM: Transvaginal first trimester obstetrical sonogram. Clinical indication: Sudden onset right lower quadrant abdominal pain with positive test. There are no priors recent studies available for comparison. Findings: The uterus measures 8.0 x 5.5 x 4.2 cm in diameter. The endometrial stripe measures 0.7 cm in thickness with a small amount of fluid within the endometrial canal. Within the right adnexal region there is an 8 x 1 x 7.1 x 4.4 cm soft tissue abnormality/mass on color Doppler imaging there is some peripheral flow but no significant hyperemia. There is a small amount of mildly echogenic fluid within the posterior cul-de- sac. There is also some fluid within Briseno's pouch. The left ovary was not visualized. Impression: 1. Abnormality within the right adnexal region which could represent an ectopic and bleeding even clotted blood products. 2. Small amount of fluid within the posterior cul-de-sac with some subtle internal echoes which does not appear completely simple. 3. No evidence of intrauterine gestation with small amount of free fluid within the endometrium. 4. Nonvisualization of the left ovary. THIS DOCUMENT HAS BEEN ELECTRONICALLY SIGNED Jose Miguel Pompa MD 04/26/2018 16:53 GAME PRESERVE MANAGER - Medications Given in the ED: ED Medications Discontinued Medications Generic Name Dose Route Start Last Admin Trade Name Freq PRN Reason Stop Dose Admin Acetaminophen 1,000 mg 04/26/18 16:51 04/26/18 17:07 Ofirmev Injection - IVPB 04/26/18 16:52 1,000 mg ONCE ONE Administration Fentanyl 25 mcg 04/26/18 17:56 04/26/18 18:18 Sublimaze Injection - IVPUSH 04/26/18 17:57 25 mcg ONCE ONE Administration Lactated Ringer's 1,000 ml 04/26/18 15:41 04/26/18 15:55 Lactated Ringers Solution IV 04/26/18 15:42 Not Given ONCE ONE Metoprolol Succinate 25 mg 04/26/18 16:11 04/26/18 16:27 Toprol Xl - PO 04/26/18 16:12 25 mg ONCE ONE Administration Metoprolol Tartrate 5 mg 04/26/18 16:10 04/26/18 16:26 Lopressor Injection - IVPUSH 04/26/18 16:11 5 mg ONCE ONE Administration Morphine Sulfate 4 mg 04/26/18 15:41 04/26/18 15:54 Morphine Injection - IVPUSH 04/26/18 15:42 4 mg ONCE ONE Administration Ondansetron HCl 4 mg 04/26/18 15:41 04/26/18 15:54 Zofran Injection IVPUSH 04/26/18 15:42 4 mg ONCE ONE Administration Rho Immune Globulin 1,500 unit 04/26/18 17:13 04/26/18 18:11 Rhogam Plus IM 04/26/18 17:14 1,500 unit ONCE ONE Administration Sodium Chloride 1,000 ml 04/26/18 15:48 04/26/18 15:54 Normal Saline - IV 04/26/18 15:49 1,000 ml ONCE ONE Administration Sodium Chloride 1,000 ml 04/26/18 16:51 04/26/18 17:02 Normal Saline - IV 04/26/18 16:52 1,000 ml ONCE ONE Administration Medical Decision Making - Medical Decision Making *Reviewed vital signs, nursing notes, and prior visit documentation (if available). 33 y/o female with RLQ / suprapubic pain. Tachycardic found to be in rapid a- fib on triage EKG. H/o a-fib, not on medical management. Initially normotensive , which trended to 80s systolic after metoprolol IVP and PO. Initiated fluid challenge with minimal response. 16:[address] Gay, plumbing mechanic. Verbally appraised of the pts HPI, ED course, and current plan of management. Recommended starting the pt on cardizem drip for rate control. CBC unremarkable for anemia, but tachycardia persisting. Suspect not veterans contact representative of actual hemodynamic status. T/S revealed pt is O negative. Order Rho Gham. U/S revealed right adnexal ectopic with free fluid in the pelvis. 16:[address] [facility] public [facility] representative. Verbally appraised of the pts HPI, ED course, and current plan of management. Will come evaluate the pt. Pt remained hypotension and tachycardia. Stopped cardizem drip and initiated rapid blood transfusion. Dr. Florez evaluated the pt at bedside. Will take to OR emergently. 18:57 Microblog sent to [facility] for admission. Awaiting call back. 04/26/18 19:33 Telephone consultation with resident Dr. Álvarez. Verbally appraised of the pts HPI, ED course, and current plan of management. Will admit pt to telemetry on observation status for attending Dr. Mccoy. *DC/Admit/Observation/Transfer Diagnosis at time of Disposition: Ruptured ectopic , Atrial flutter with rapid ventricular response - Discharge Dispostion Condition at time of disposition: Critical Decision to Admit order: Yes - Referrals - Patient Instructions - Post Discharge Activity
[2018-04-26] MEDS ORDERED: ONDANSETRON 4 MG/2 ML VIAL IVPUSH ONE (15:41)
[2018-04-26] MEDS ORDERED: LACTATED RINGERS SOLUTION 1000 ML INFUS.BAG IV ONE (15:41)
[2018-04-26] MEDS ORDERED: morphine CARPU-JECT 4 MG/1 ML DISP.SYRIN IVPUSH ONE (15:41)
[2018-04-26] MEDS ORDERED: ONDANSETRON 4 MG/2 ML VIAL ONE (15:47)
[2018-04-26] MEDS ORDERED: morphine SULFATE 4 MG/ML VIAL ONE (15:47)
[2018-04-26] MEDS ORDERED: SODIUM CHLORIDE 0.9% 500 ML INFUS.BAG IV ONE ×2 (15:48→16:51)
[2018-04-26 16:02] LABS: BASO % 0.3 % (0-2.0); EOS % 1.3 % (0-4.5); HEMATOCRIT 36.8 % (32.4-45.2); HEMOGLOBIN 12.7 GM/dL (10.7-15.3); LYMPH % 27.6 % (8-40); MCHC 34.4 g/dl (32.0-36.0); MEAN CELL VOLUME 84.1 fl (80-96); MEAN PLT VOLUME 7.4 fl (7.5-11.1); MONO % 7.3 % (3.8-10.2); NEUT % 63.5 % (42.8-82.8); PLATELET COUNT 234 K/MM3 (134-434); RBC 4.38 M/mm3 (3.60-5.2); RDW 13.6 % (11.6-15.6)
--- NOTE | 2018-04-26 16:06 | PDOC ---
Attending Attestation - Resident Resident Name: Montez Ellison - ED Attending Attestation I have performed the following: I have examined & evaluated the patient, The case was reviewed & discussed with the resident, I agree w/resident's findings & plan, Exceptions are as noted - HPI HPI: 04/26/18 16:03 33 F with h/o afib s/p ablation x 2, not currently on AC or rate control, presenting to ED with abdominal pain. Pt states that the pain began last night. It is localized to her suprapubic region and 10/10 in intensity. Pt states that the pain resolved spontaneously last night, but this afternoon it recurred and has been constant. Pt denies any N/V. Denies F/C. Denies radiation of pain anywhere else. Denies CP/SOB. Denies vaginal discharge/bleeding. Denies dysuria. - Physicial Exam PE: 04/26/18 16:04 GENERAL: Awake, alert, and fully oriented, in no acute distress. HEAD: No signs of trauma EYES: PERRLA, EOMI, sclera anicteric, conjunctiva clear ENT: Auricles normal inspection, hearing grossly normal, nares patent, oropharynx clear without exudates. Moist mucosa NECK: Nontender, no stepoffs, Normal ROM, supple, no lymphadenopathy, JVD, or masses LUNGS: Breath sounds equal, clear to auscultation bilaterally. No wheezes, and no crackles HEART: irregular, no murmurs, rubs or gallops ABDOMEN: + diffuse lower abdominal tenderness with guarding EXTREMITIES: Normal range of motion, no edema. No clubbing or cyanosis. No cords, erythema, or tenderness NEUROLOGICAL: Cranial nerves II through XII intact. 5/5 strength and sensation in all extremities, Normal speech, normal gait, normal cerebellar function SKIN: Warm, Dry, normal turgor, no rashes or lesions noted. - Critical Care Time Total Critical Care Time: 120 Critical Care Statement: The care of this patient involved high complexity decision making to prevent further life threatening deterioration of the patient 's condition and/or to evaluate & treat vital organ system(s) failure or risk of failure. - Medical Decision Making 04/26/18 16:05 33 F with lower abdominal pain. Will r/o appendicitis. Also consider ovarian torsion vs ectopic vs ruptured ovarian cyst. Pt also found to be in rapid afib in ED. Pt is not on AC at this moment, so will send lactate to r/o mesenteric ischemia. - Labs, lactate - UA, UPT - TVUS - CTAP - IVF, pain control 04/26/18 17:19 Pt with + UPT Pt sent to US to r/o ectopic Pt is O negative, will administer Rhogam 04/26/18 17:20 Pt now in aflutter with 2:1 conduction, HR persistent at 150 Pt given metoprolol 5mg IV x 2, with 25mg PO 04/26/18 18:30 TVUS shows R adnexal mass with + free fluid in abdomen, suspicious for ruptured ectopic Dr. Florez consulted Pt persistently tachycardic to 150 Pt started on Dilt gtt per Dr. Gay's recs. However, given tenuous BP, drip was stopped. Suspect pt's tachycardia may be compensatory in setting of ruptured ectopic. Will hold rate control for now until BP is improved. 04/26/18 18:59 Dr. Florez in ED to evaluate pt, plan to take to OR wang
[2018-04-26] MEDS ORDERED: METOPROLOL TARTRATE 5 MG/5 ML VIAL IVPUSH ONE (16:10)
[2018-04-26] MEDS ORDERED: metoPROLOL SUCCINATE 25 MG TAB.SR.24H (FP) PO ONE (16:11)
[2018-04-26] MEDS ORDERED: METOPROLOL TARTRATE 5 MG/5 ML VIAL ONE (16:17)
[2018-04-26 16:18] LABS: INR 1.18 (0.83-1.09); PROTHROMBIN TIME (PATIENT) 13.9 SEC (9.7-13.0)
[2018-04-26 16:24] LABS: ALBUMIN 3.8 g/dl (3.4-5.0); ALK PHOS 85 U/L (45-117); ANION GAP 6 MMOL/L (8-16); BILIRUBIN,TOTAL 0.4 mg/dL (0.2-1); BLOOD UREA NITROGEN 12 mg/dL (7-18); CALCIUM 8.4 mg/dL (8.5-10.1); CHLORIDE 106 mmol/L (98-107); CO2 27 mmol/L (21-32); CREATININE 0.7 mg/dL (0.55-1.3); GLUCOSE,RANDOM 91 mg/dL (74-106); LIPASE 114 U/L (73-393); POTASSIUM 3.3 mmol/L (3.5-5.1); SGOT/AST 7 U/L (15-37); SGPT/ALT 14 U/L (13-61); SODIUM 140 mmol/L (136-145); TOT PROT 7.3 g/dl (6.4-8.2)
[2018-04-26] MEDS ORDERED: ACETAMINOPHEN 1000 MG/100 ML VIAL (NON FORMULARY) IVPB ONE (16:51)
[2018-04-26] MEDS ORDERED: RHO(D) IMMUNE GLOBULIN 1,500 UNIT DISP.SYRIN IM ONE (17:13)
--- NOTE | 2018-04-26 17:26 | CON.CARD ---
Consult Consult Specialty:: Cardiology - History of Present Illness History of Present Illness: 33 F with h/o afib s/p ablation x 2, not currently on AC or rate control, presenting to ED with abdominal pain. Pt states that the pain began last night. It is localized to her suprapubic region and 10/10 in intensity. Pt states that the pain resolved spontaneously last night, but this afternoon it recurred and has been constant. Pt denies any N/V. Denies F/C. Denies radiation of pain anywhere else. Denies CP/SOB. Denies vaginal discharge/bleeding. Denies dysuria. PMH Family health history Daughter Born with SVT Mother Post heart condition 21 Ongoing medical problems No evidence of accessory pathway or inducible tachycardia March 21, 2010 Palpitations Paroxysmal atrial fibrillation March 21, 2010 s/p ablation x2 Dr. 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) Cardio/Vascular: Yes: AFIB, Other (tachycardia) Gastrointestinal: Yes: Ulcerative Colitis (epigastric pain), Other ...LMP: 06/20/17 ...: No Psych: Yes: Anxiety - Past Surgical History Past Surgical History: Yes: None - Alcohol/Substance Use Hx Alcohol Use: No History of Substance Use: reports: None - Smoking History Smoking history: Never smoked Have you smoked in the past 12 months: No - Social History Usual Living Arrangement: With Significant Other ADL: Independent History of Recent Travel: No Home Medications - Allergies Allergies/Adverse Reactions: Allergies Allergy/AdvReac Type Severity Reaction Status Date / Time No Known Allergies Allergy Verified 04/26/18 15:03 - Home Medications Home Medications: Ambulatory Orders NK [No Known Home Medication] 04/26/18 Family Disease History - Family Disease History Family Disease History: Heart Disease: Mother (h/o cardiac arrythmia, in child ), Sister (h/o palpitation) Review of Systems - Review of Systems Constitutional: reports: No Symptoms Eyes: reports: No Symptoms HENT: reports: No Symptoms Neck: reports: No Symptoms Cardiovascular: reports: No Symptoms Gastrointestinal: reports: Abdominal Pain Genitourinary: reports: No Symptoms Breasts: reports: No Symptoms Reported Musculoskeletal: reports: No Symptoms Integumentary: reports: No Symptoms Neurological: reports: No Symptoms Endocrine: reports: No Symptoms Hematology/Lymphatic: reports: No Symptoms Psychiatric: reports: No Symptoms Vital Signs: Vital Signs Temperature 97.3 F L 04/26/18 15:00 Pulse Rate 150 H 04/26/18 16:51 Respiratory Rate 18 04/26/18 15:00 Blood Pressure 95/67 04/26/18 16:51 O2 Sat by Pulse Oximetry (%) 99 04/26/18 15:00 Constitutional: Yes: Well Nourished, No Distress, Calm Eyes: Yes: WNL, Conjunctiva Clear, EOM Intact HENT: Yes: WNL, Atraumatic, Normocephalic Neck: Yes: WNL, Supple, Trachea Midline Respiratory: Yes: WNL, Regular, CTA Bilaterally Gastrointestinal: Yes: WNL, Normal Bowel Sounds Renal/: Yes: WNL Cardiovascular: Yes: Pulse Irregular Musculoskeletal: Yes: WNL Extremities: Yes: WNL Integumentary: Yes: WNL Neurological: Yes: WNL, Alert, Oriented ...Motor Strength: WNL Psychiatric: Yes: WNL, Alert, Oriented - Other Data Labs, Other Data: CBC, BMP 04/26/18 15:43 04/26/18 15:43 INR, PTT INR 1.18 (0.83-1.09) H 04/26/18 16:00 Imaging - Results Chest X-ray: Pending EKG: Image Reviewed (af rvr) Problem List - Problems (1) Atrial flutter with rapid ventricular response Code(s): I48.92 - UNSPECIFIED ATRIAL FLUTTER (2) Ectopic Code(s): O00.90 - UNSPECIFIED ECTOPIC WITHOUT INTRAUTERINE (3) Ruptured ectopic Code(s): O00.90 - UNSPECIFIED ECTOPIC WITHOUT INTRAUTERINE (4) Abdominal discomfort Code(s): R10.9 - UNSPECIFIED ABDOMINAL PAIN (5) Abnormal EKG Code(s): R94.31 - ABNORMAL ELECTROCARDIOGRAM [ECG] [EKG] (6) Atrial fibrillation Code(s): I48.91 - UNSPECIFIED ATRIAL FIBRILLATION Qualifiers: Atrial fibrillation type: paroxysmal Qualified Code(s): I48.0 - Paroxysmal atrial fibrillation (7) Chest pain Code(s): R07.9 - CHEST PAIN, UNSPECIFIED (8) Epigastric pain Code(s): R10.13 - EPIGASTRIC PAIN (9) Light-headed Code(s): R42 - DIZZINESS AND GIDDINESS (10) Microcytic anemia Code(s): D50.9 - IRON DEFICIENCY ANEMIA, UNSPECIFIED (11) Palpitations Code(s): R00.2 - PALPITATIONS (12) Paroxysmal atrial fibrillation Code(s): I48.0 - PAROXYSMAL ATRIAL FIBRILLATION (13) Peptic ulcer disease Code(s): K27.9 - PEPTIC ULC, SITE UNSP, UNSP AC OR CHR, W/O HEMOR OR PERF (14) Code(s): Z33.1 - STATE, INCIDENTAL Assessment/Plan Shock: R/O Sepsis due to an intra-abdominal source. R/O Hypovolemia AF RVR Atrial fibrillation (s/p ablation x2) Ruptured ectopic S/P laparoscopic right salphingectomy Plan IVF ABX taperr off pressors BB for rate control when off pressors CC time 70 min
[2018-04-26] MEDS ORDERED: DILTIAZEM INJECTION 125 MG in SODIUM CHLORIDE 100 ML IVPB SCH (17:30)
[2018-04-26] MEDS ORDERED: dilTIAZem HCL 125 MG/25 ML - 25 ML VIAL ONE (17:32)
[2018-04-26] MEDS ORDERED: dilTIAZem HCL 50 MG/10 ML - 10 ML VIAL ONE (17:33)
--- NOTE | 2018-04-26 18:57 | CON.OBG ---
Consult Consult Specialty:: CHIEF INNOVATION OFFICER Reason for Consultation:: Suspicion of ruptured ectopic - History of Present Illness Chief Complaint: Pelvic pain/Vaginal bleeding History of Present Illness: 33 yo Para 2, LMP unknown, presents to ER c/o pelvic pain associated with vaginal bleeding. exam is positive. Pelvic sonogram shows abnormality within the right adnexal region which could represent an ectopic . 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) Cardio/Vascular: Yes: AFIB, Other (tachycardia) Gastrointestinal: Yes: Ulcerative Colitis (epigastric pain), Other ...LMP: 06/20/17 ...: No ...Para: 2 Psych: Yes: Anxiety - Past Surgical History Past Surgical History: Yes: None - Alcohol/Substance Use Hx Alcohol Use: No History of Substance Use: reports: None - Smoking History Smoking history: Never smoked Have you smoked in the past 12 months: No - Social History Usual Living Arrangement: With Significant Other ADL: Independent History of Recent Travel: No Home Medications - Allergies Allergies/Adverse Reactions: Allergies Allergy/AdvReac Type Severity Reaction Status Date / Time No Known Allergies Allergy Verified 04/26/18 15:03 - Home Medications Home Medications: Ambulatory Orders NK [No Known Home Medication] 04/26/18 Family Disease History - Family Disease History Family History: Unremarkable Family Disease History: Heart Disease: Mother (h/o cardiac arrythmia, in child ), Sister (h/o palpitation) Review of Systems - Review of Systems Constitutional: reports: No Symptoms Eyes: reports: No Symptoms HENT: reports: No Symptoms Neck: reports: No Symptoms Respiratory: reports: No Symptoms Gastrointestinal: reports: No Symptoms Genitourinary: reports: Pain, Vaginal Bleeding Breasts: reports: No Symptoms Reported Musculoskeletal: reports: No Symptoms Neurological: reports: No Symptoms Psychiatric: reports: No Symptoms Pain Intensity: 7 Physical Exam-CHIEF INNOVATION OFFICER Vital Signs: Vital Signs Temperature 97.3 F L 04/26/18 15:00 Pulse Rate 150 H 04/26/18 18:04 Respiratory Rate 18 04/26/18 17:54 Blood Pressure 99/59 L 04/26/18 18:04 O2 Sat by Pulse Oximetry (%) 100 04/26/18 17:54 Constitutional: Yes: Mild Distress Eyes: Yes: Conjunctiva Clear HENT: Yes: Atraumatic Neck: Yes: Supple Gastrointestinal: Yes: Tenderness, Rebound Vaginal Exam: Yes: Bleeding Adnexa: Tender: Bilateral Neurological: Yes: Alert, Oriented ...Motor Strength: WNL Psychiatric: Yes: Alert, Oriented Labs: CBC, BMP 04/26/18 15:43 04/26/18 15:43 Problem List - Problems (1) Ectopic Code(s): O00.90 - UNSPECIFIED ECTOPIC WITHOUT INTRAUTERINE Assessment/Plan Pelvic pain Vaginal bleeding R/O ruptured ectopic Pre op Consent signed Anesthesia to see patient
[2018-04-26 20:09] LABS: URINE APPEARANCE CLEAR; URINE BILIRUBIN NEGATIVE (<2.0 mg/dL); URINE COLOR STRAW; URINE GLUCOSE (UA) NEGATIVE (NEGATIVE); URINE KETONE NEGATIVE (NEGATIVE); URINE LEUK ESTERASE NEGATIVE (NEGATIVE); URINE NITRITE NEGATIVE (NEGATIVE); URINE PROTEIN NEGATIVE (NEGATIVE); URINE UROBILINOGEN NEGATIVE mg/dL (0.2-1.0)
--- NOTE | 2018-04-26 22:14 | HP ---
CHIEF COMPLAINT:suprapubic pain PCP: Dr. Yanet Prince at [facility], office # [phone] Robotics Systems Engineer: Dr. Aftab Malhotra HISTORY OF PRESENT ILLNESS: Patient is a 33 year old female with past medical history of Atrial fibrillation (s/p ablation x2), presented to the ED due to suprapubic pain for 1 day. Patient reported she had sudden, cramping, nonradiating suprapubic pain that started last night. No aggravating or alleviating factors. This was accompanied by vaginal bleeding, and patient thought she was having her period. The pain resolved spontaneously after a few hours. This afternoon, the abdominal pain recurred again, worse, /10, and more constant, accompanied by vaginal bleeding and palpitations. Patient denies any fever, chills, headache, dizziness, nausea, vomiting, chest pain, SOB, diarrhea or urinary symptoms. Upon arrival at the ED, patient was noted to be tachycardic, on rapid a-fib. Metoprolol IV and PO given. Robotics Systems Engineer consulted and Cardizem drip was recommended for rate control but patient started to become hypotensive at 80s/ 50s. Transvaginal US revealed right adnexal ectopic and PAN DEVULCANIZER was called. Patient brought to the OR. ER course was notable for: (1)TVS: Abnormal with right adnexal region which could represent ectopic and bleeding even clotted blood products. Small amount of fluid within posterior cul-de-sac with some subtle internal echoes which does not appear completely simple. No intrauterine gestation, small amount of free fluid within endometrium. Nonvisualization of left ovary. (2)IV and PO Metoprolol, IV Morphine, s/p 1unit pRBC (3) Recent Travel:denies PAST MEDICAL HISTORY: Atrial fibrillation (s/p ablation x2) PAST SURGICAL HISTORY: ablation (2016,2018) Social History: Smoking:denies Alcohol:occasional Drugs: denies , 1 live (2007), miscarriage (2014) Family History: Twin sister - A. fib Daughter has a "hole in her heart" Mother of "heart problems" Allergies No Known Allergies Allergy (Verified 04/26/18 15:03) HOME MEDICATIONS: Home Medications Medication Instructions Recorded NK [No Known Home Medication] 04/26/18 REVIEW OF SYSTEMS CONSTITUTIONAL: Absent: fever, chills, diaphoresis, generalized weakness, malaise, loss of appetite, weight change HEENT: Absent: rhinorrhea, nasal congestion, throat pain, throat swelling, difficulty swallowing, mouth swelling, ear pain, eye pain, visual changes CARDIOVASCULAR: palpitations Absent: chest pain, syncope, irregular heart rate, lightheadedness, peripheral edema RESPIRATORY: Absent: cough, shortness of breath, dyspnea with exertion, orthopnea, wheezing, stridor, hemoptysis GASTROINTESTINAL:abdominal pain Absent: abdominal distension, nausea, vomiting, diarrhea, constipation, melena, hematochezia GENITOURINARY: Absent: dysuria, frequency, urgency, hesitancy, hematuria, flank pain, genital pain MUSCULOSKELETAL: Absent: myalgia, arthralgia, joint swelling, back pain, neck pain SKIN: Absent: rash, itching, pallor HEMATOLOGIC/IMMUNOLOGIC: Absent: easy bleeding, easy bruising, lymphadenopathy, frequent infections ENDOCRINE: Absent: unexplained weight gain, unexplained weight loss, heat intolerance, cold intolerance NEUROLOGIC: Absent: headache, focal weakness or paresthesias, dizziness, unsteady gait, seizure, mental status changes, bladder or bowel incontinence PSYCHIATRIC: Absent: anxiety, depression, suicidal or homicidal ideation, hallucinations. PHYSICAL EXAMINATION Vital Signs - 24 hr 04/26/18 04/26/18 04/26/18 15:00 16:51 17:54 Temperature 97.3 F L Pulse Rate 83 Pulse Rate [ 150 H 153 H Left] Respiratory 18 18 Rate Blood Pressure 116/57 L Blood Pressure 95/67 88/51 L [Left Arm] O2 Sat by Pulse 99 100 Oximetry (%) 04/26/18 04/26/18 04/26/18 18:04 19:03 19:15 Temperature 98.5 F Pulse Rate Pulse Rate [ 150 H 156 H 152 H Left] Respiratory 28 H Rate Blood Pressure Blood Pressure 99/59 L 86/53 L 84/51 L [Left Arm] O2 Sat by Pulse 100 100 Oximetry (%) 04/26/18 04/26/18 19:45 19:56 Temperature Pulse Rate Pulse Rate [ 150 H 150 H Left] Respiratory Rate Blood Pressure Blood Pressure 82/57 L 81/52 L [Left Arm] O2 Sat by Pulse Oximetry (%) GENERAL: Awake, alert, and fully oriented, in no acute distress. HEAD: Normal with no signs of trauma. EYES:PERRLA, EOMI, sclera anicteric, conjunctiva clear. EARS, NOSE, THROAT: Ears normal,oropharynx clear without exudates. Moist mucous membranes. NECK: Normal range of motion, supple without lymphadenopathy, JVD, or masses. LUNGS: Breath sounds equal, clear to auscultation bilaterally. HEART:Tachycardic, normal S1 and S2 without murmur, rub or gallop. ABDOMEN: Soft, +RLQ and suprapubic tenderness, not distended, normoactive bowel sounds, + guarding. MUSCULOSKELETAL: Normal range of motion at all joints. No CVA tenderness. UPPER EXTREMITIES: 2+ pulses, warm, well-perfused. No peripheral edema. LOWER EXTREMITIES: 2+ pulses, warm, well-perfused. No peripheral edema. NEUROLOGICAL: Cranial nerves II-XII intact. Normal speech. Normal gait. PSYCHIATRIC: Cooperative. Good eye contact. Appropriate mood and affect. SKIN: Warm, dry, normal turgor, no rashes or lesions noted. Laboratory Results - last 24 hr 04/26/18 04/26/18 04/26/18 15:40 15:40 15:40 WBC RBC Hgb Hct MCV MCH MCHC RDW Plt Count MPV Absolute Neuts (auto) Neutrophils % Lymphocytes % Monocytes % Eosinophils % Basophils % Nucleated RBC % PT with INR INR Sodium Potassium Chloride Carbon Dioxide Anion Gap BUN Creatinine Creat Clearance w eGFR Random Glucose Lactic Acid 2.0 Calcium Total Bilirubin AST ALT Alkaline Phosphatase Total Protein Albumin Lipase Beta HCG, Quant 1629.2 Serum , Qual Urine Color Urine Appearance Urine pH Ur Specific [place] Urine Protein Urine Glucose (UA) Urine Ketones Urine Blood Urine Nitrite Urine Bilirubin Urine Urobilinogen Ur Leukocyte Esterase Blood Type O NEGATIVE Antibody Screen Negative Crossmatch See Detail Crossmatch IS Only See Detail Unit Expiration Date No Result Required. 04/26/18 04/26/18 04/26/18 15:43 15:43 15:43 WBC 10.0 RBC 4.38 Hgb 12.7 Hct 36.8 MCV 84.1 MCH 29.0 MCHC 34.4 RDW 13.6 Plt Count 234 MPV 7.4 L Absolute Neuts (auto) 6.3 Neutrophils % 63.5 Lymphocytes % 27.6 D Monocytes % 7.3 Eosinophils % 1.3 Basophils % 0.3 Nucleated RBC % 0 PT with INR INR Sodium 140 Potassium 3.3 L Chloride 106 Carbon Dioxide 27 Anion Gap 6 L BUN 12 Creatinine 0.7 Creat Clearance w eGFR > 60 Random Glucose 91 Lactic Acid Calcium 8.4 L Total Bilirubin 0.4 AST 7 L ALT 14 Alkaline Phosphatase 85 Total Protein 7.3 Albumin 3.8 Lipase 114 Beta HCG, Quant Serum , Qual Positive Urine Color Urine Appearance Urine pH Ur Specific [place] Urine Protein Urine Glucose (UA) Urine Ketones Urine Blood Urine Nitrite Urine Bilirubin Urine Urobilinogen Ur Leukocyte Esterase Blood Type Antibody Screen Crossmatch Crossmatch IS Only Unit Expiration Date 04/26/18 04/26/18 16:00 19:40 WBC RBC Hgb Hct MCV MCH MCHC RDW Plt Count MPV Absolute Neuts (auto) Neutrophils % Lymphocytes % Monocytes % Eosinophils % Basophils % Nucleated RBC % PT with INR 13.90 H INR 1.18 H Sodium Potassium Chloride Carbon Dioxide Anion Gap BUN Creatinine Creat Clearance w eGFR Random Glucose Lactic Acid Calcium Total Bilirubin AST ALT Alkaline Phosphatase Total Protein Albumin Lipase Beta HCG, Quant Serum , Qual Urine Color Straw Urine Appearance Clear Urine pH 6.0 Ur Specific [place] 1.011 Urine Protein Negative Urine Glucose (UA) Negative Urine Ketones Negative Urine Blood Negative Urine Nitrite Negative Urine Bilirubin Negative Urine Urobilinogen Negative Ur Leukocyte Esterase Negative Blood Type Antibody Screen Crossmatch Crossmatch IS Only Unit Expiration Date ASSESSMENT/PLAN: Patient is a 33 year old female with past medical history of Atrial fibrillation (s/p ablation x2), presented to the ED due to suprapubic pain for 1 day. #Ruptured ectopic -TVS: Abnormal with right adnexal region which could represent ectopic and bleeding even clotted blood products. Small amount of fluid within posterior cul-de-sac with some subtle internal echoes which does not appear completely simple. No intrauterine gestation, small amount of free fluid within endometrium. Nonvisualization of left ovary. -OBGYN (Dr. Florez) consulted. -POD 0: Laparoscopic right salpingectomy -EBL 1500-2000cc -s/p 3units prbc -pain control with IV tylenol and morphine #Atrial fibrillation with RVR/ A.flutter -Hx of A-fib (not on any anticoagulants or rate control meds), ruptured ectopic likely contributory -IV and PO Metoprolol given, resulted to A.flutter -Cardiology (Dr. Gay) consulted. #Hypotension -may be 2/2 acute blood loss from ruptured ectopic vs A.fib vs septic shock -Metabolic acidosis on VBG, will repeat VBG in the morning -IV fluids -Phenylephrine PRN for hypotension -Will monitor for any signs of liver or kidney function abnormalities -Lactic acid repeated -Blood cultures -Will continue zosyn empirically for now #Elevated T. bilirubin -T.bili 1.5 (from 0.4) -On FAST exam, distended GB noted -Abdominal ultrasound ordered #FEN -IV LR @100cc/hr -Electrolytes wnl, routine bmp monitoring -Diet as per PAN DEVULCANIZER #Prophylaxis -SCDs, TEDs #Disposition -full code -ICU for closer monitoring Visit type - Emergency Visit Emergency Visit: Yes ED Registration Date: 04/26/18 Care time: The patient presented to the Emergency Department on the above date and was hospitalized for further evaluation of their emergent condition. - New Patient This patient is new to me today: Yes Date on this admission: 05/23/18 - Critical Care Critical Care patient: Yes Total Critical Care Time (in minutes): 35 Critical Care Statement: The care of this patient involved high complexity decision making to prevent further life threatening deterioration of the patient 's condition and/or to evaluate & treat vital organ system(s) failure or risk of failure.
[2018-04-26] MEDS ORDERED: ceFAZolin SODIUM 1 GM VIAL IVPB ONE (22:15)
--- NOTE | 2018-04-26 23:33 | OP ---
Operative Note - Note: Operative Date: 04/26/18 Pre-Operative Diagnosis: Ectopic Operation: Laparoscopic right salpingectomy Findings: Hemoperitoneum / Right aborted tubal Post-Operative Diagnosis: Other (Ruptured right tubal ) Transitional Care Nurse: Dino Dalal Anesthesia: General Specimens Removed: Right fallopian tube Estimated Blood Loss (mls): 500
[2018-04-26] MEDS ORDERED: IBUPROFEN 800 MG/8 ML IJ IVPB PRN (23:34)
[2018-04-26] MEDS ORDERED: ELECTROLYTE-148 SOLN 1,000 ML IV SCH (23:45)
[2018-04-27] MEDS ORDERED: METOPROLOL TARTRATE 5 MG/5 ML VIAL IVPUSH ONE ×2 (00:04→06:15)
[2018-04-27 00:22] LABS: BASO % 0.1 % (0-2.0); HEMATOCRIT 32.3 % (32.4-45.2); LYMPH % 6.5 % (8-40); MCH 28.7 pg (25.7-33.7); MEAN CELL VOLUME 84.4 fl (80-96); MEAN PLT VOLUME 7.5 fl (7.5-11.1); MONO % 5.4 % (3.8-10.2); PLATELET COUNT 192 K/MM3 (134-434); RBC 3.83 M/mm3 (3.60-5.2); RDW 13.8 % (11.6-15.6); WHITE BLOOD COUNT 17.8 K/mm3 (4.0-10.0)
[2018-04-27] MEDS ORDERED: PIPERACILLIN/TAZOB 3.375 GM 3.375 GM in DEXTROSE 5%-WATER - 50 ML IVPB ONE (00:28)
[2018-04-27] MEDS ORDERED: DILTIAZEM INJECTION 125 MG in SODIUM CHLORIDE 100 ML IVPB SCH (00:30)
[2018-04-27] MEDS: PHENYLEPHRINE HCL 10,000 MCG in DEXTROSE 5%-WATER - 499 ML IV SCH ×5 (00:30→11:39)
[2018-04-27] MEDS ORDERED: NOREPINEPHRINE BITARTRATE 8,000 MCG in DEXTROSE 5%-WATER - 492 ML IV SCH (00:30)
[2018-04-27 00:44] LABS: VENOUS PC02 43.2 mmHg (38-52); VENOUS PO2 34.2 mmHg (28-48)
--- NOTE | 2018-04-27 00:53 | CONSULT ---
Consult Consult Specialty:: ICU Reason for Consultation:: hypotension in setting of ruptured ectopic. - History of Present Illness Chief Complaint: abdominal pain History of Present Illness: 33 yo F with PMHx of Atrial fibrillation (s/p ablation x2), presented to the ED with one day history of suprapubic pain. Patient reported she had sudden, cramping, nonradiating suprapubic pain that started last night. No aggravating or alleviating factors. This was accompanied by vaginal bleeding, and patient thought she was having her period. The pain resolved spontaneously after a few hours. This afternoon, the abdominal pain recurred again, worse, 10/10, and more constant, accompanied by vaginal bleeding and palpitations. Patient denies any fever, chills, headache, dizziness, nausea, vomiting, chest pain, SOB, diarrhea or urinary symptoms. Upon arrival at the ED, patient was noted to be tachycardic, in A-FIb with RVR. Metoprolol IV and PO given. Public Health Administrator consulted and Cardizem drip was recommended for rate control but patient started to become hypotensive at 80s/50s. Transvaginal US revealed right adnexal ectopic and ORGAN GRINDER was called. Patient taken emergently to OR. ER course was notable for: (1)TVS: Abnormal with right adnexal region which could represent ectopic and bleeding even clotted blood products. Small amount of fluid within posterior cul-de-sac with some subtle internal echoes which does not appear completely simple. No intrauterine gestation, small amount of free fluid within endometrium. Nonvisualization of left ovary. (2)IV and PO Metoprolol, IV Morphine, s/p 1unit pRBC - History Source History Provided By: Medical Record Limitations to Obtaining History: Clinical Condition - Past Medical History Cardio/Vascular: Yes: AFIB, Other (born with SVT ) Gastrointestinal: Yes: Ulcerative Colitis (epigastric pain) ...LMP: 04/15/18 ...: No ...: 3 ...Para: 2 Psych: Yes: Anxiety - Past Surgical History Past Surgical History: Yes: None - Alcohol/Substance Use Hx Alcohol Use: No History of Substance Use: reports: None - Smoking History Smoking history: Never smoked Have you smoked in the past 12 months: No - Social History Usual Living Arrangement: With Significant Other ADL: Independent History of Recent Travel: No Home Medications - Allergies Allergies/Adverse Reactions: Allergies Allergy/AdvReac Type Severity Reaction Status Date / Time No Known Allergies Allergy Verified 04/26/18 15:03 - Home Medications Home Medications: Ambulatory Orders NK [No Known Home Medication] 04/26/18 Family Disease History - Family Disease History Family Disease History: Heart Disease: Mother (h/o cardiac arrythmia, in child ), Sister (h/o palpitation) Physical Exam Vital Signs: Vital Signs Temperature 98.5 F 04/26/18 19:15 Pulse Rate 141 H 04/27/18 00:00 Respiratory Rate 29 H 04/27/18 00:00 Blood Pressure 113/74 04/27/18 00:00 O2 Sat by Pulse Oximetry (%) 100 04/26/18 19:15 Constitutional: Yes: No Distress, Calm Eyes: Yes: Conjunctiva Clear, EOM Intact HENT: Yes: Atraumatic, Normocephalic Neck: Yes: Supple, Trachea Midline Cardiovascular: Yes: Tachycardia, S1, S2. No: Gallop, Murmur, Rub Respiratory: Yes: Regular, CTA Bilaterally Gastrointestinal: Yes: Soft, Hypoactive Bowel Sounds Extremities: No: Calf Tenderness, Cold, Cyanosis, Deformity Edema: No Peripheral Pulses WNL: Yes Wound/Incision: Yes: Clean/Dry, Well Approximated Neurological: Yes: Alert, Oriented ...Motor Strength: WNL Psychiatric: Yes: Alert, Oriented Labs: CBC, BMP 04/26/18 23:57 Imaging - Results Ultrasound: Report Reviewed (Abnormal with right adnexal region which could represent ectopic and bleeding even clotted blood products. Small amount of fluid within posterior cul-de-sac with some subtle internal echoes which does not appear completely simple. No intrauterine gestation, small amount of free fluid within endometrium. Nonvisualization of left ovary.), Image Reviewed Assessment/Plan A:33 yo F with PMHx of Atrial fibrillation (s/p ablation x2), presented to the ED with one day history of suprapubic pain found to have ruptured ectopic s/p laparoscopic right salpingectomy admitted to ICU with hypotension and SVT. PLAN: NEURO: * Awake and alert * Neuro checks * Pain control with IV ibuprofen as per ORGAN GRINDER * morphine 2mg IV Q4H prn. PULM: * No active pulmonary issues * supplemental O2 PRN * maintain SpO2 >90% * BD TX PRN CV: * H/O afib s/p ablation; not currently on rate control meds or AC. * Earlier she was found to be in Afib with RVR now in SVT * spoke with cardiology - ok with rate of 140's * Will continue to monitor- will give IV Lopressor PRN * started Levophed 5mcg and then switched to Phenylephrine. GI: * regular diet. * Zofran for nausea. ORGAN GRINDER: * s/p laparoscopic right salpingectomy found to have hemoperitoneum / Right aborted tubal * s/p 3 units prbc's * Given 1 time dose of Zosyn in ICU * Dr. Florez ORGAN GRINDER FEN: * LR @ 125ml/hr * hypocalcemia- will replete PRN ; repeat BMP in AM * regular diet. PPx: * SCD's DISPO: Requires ICU level of care. FULL CODE>
[2018-04-27 00:54] LABS: ALBUMIN 2.4 g/dl (3.4-5.0); ALK PHOS 62 U/L (45-117); ANION GAP 8 MMOL/L (8-16); BILIRUBIN,TOTAL 1.5 mg/dL (0.2-1); BLOOD UREA NITROGEN 5 mg/dL (7-18); CHLORIDE 116 mmol/L (98-107); CO2 17 mmol/L (21-32); CREATININE 0.5 mg/dL (0.55-1.3); GLUCOSE,RANDOM 136 mg/dL (74-106); POTASSIUM 3.9 mmol/L (3.5-5.1); SGOT/AST 25 U/L (15-37); SGPT/ALT 16 U/L (13-61); SODIUM 141 mmol/L (136-145)
[2018-04-27] MEDS ORDERED: PIPERACILLIN/TAZOBACTAM 3.375 GM VIAL IVPB ONE ×3 (00:57→18:16)
[2018-04-27] MEDS ORDERED: DEXTROSE 5%-WATER - 50 ML IVPB ONE ×3 (00:57→18:17)
[2018-04-27] MEDS ORDERED: NOREPINEPHRINE BITARTRATE 4 MG/4 ML ML IV ONE (00:58)
[2018-04-27 01:05] LABS: VENOUS PH 7.24 (7.32-7.42)
--- NOTE | 2018-04-27 01:06 | PN ---
Teaching Attending Note Name of Resident: Aggie Cooper ATTENDING PHYSICIAN STATEMENT I saw and evaluated the patient. I reviewed the resident's note and discussed the case with the resident. I agree with the resident's findings and plan as documented. SUBJECTIVE: Seen and examined; please refer to resident note for further historical infomration. I saw the patient in the ICU post operatively; she was too sleepy to provide me with any additional historical information. Briefly, this is a 33 y/o female presenting with a ruptured ectopic ; she was taken directly to the OR. She has a history of Afib s/p multiple ablations and is not on any medications for this. She was in AF with RVR in the ER; events reviewed. She was extremely unstable when I saw her in the ICU with SBP in the 60-70 range on A-line and HR in the 140s. Hotel Registration Clerk spoke with OBGYN. I placed central line in R-femoral (1 attempt, 1% lido, confirm with VBG [pending], no complications) and started her initially on levo but moving to phenylephrine ( 12 NE actually lowered her HR; looked SVT and when lowered to 120s became apparent that it was still irregular). I am informed by rehabilitation program coordinator that she got 7 L fluid intraop and 1 U PRBC; large amount of intraabdominal blood per anesthesia. +FAST exam done by myself and confirmed images with ER attending; did have free fluid; disucssed with consulting services felt less likely to be bleed. Appreciate expert opinion from all specialties involved. 10 sys ROS couldn't be verified by myself as she was too tired to answer PMH, PSH, Family hx, Social hx reviewed Medication list reviewed OBJECTIVE: VS, labs, imaging reviewed Moderate distress, post-op anesthesia wearing off, in bed in ICU NC AT EOMI PERRLA Tachycardic and irregular rhythm with s1/2 no mgr Lungs CTAB, w/ sym exp Post op scars c/d/i, not distended, +BS CN2-12 wnl, no fnd but lethargy limits exam Normal mood, appropriate affect EKG, telemetry reviewed FAST exam with +free fluid and incidentally distended GB ASSESSMENT AND PLAN: Patient presents with a ruptured ectopic and afib not on AC/rate control after 2 ablations; she is in AF with RVR in the 130s and became very hypotensive and is now on pressors. Monitoring in ICU with OB and CV consults 1) Ruptured ectopic -POD#0; ultimate management per OB -Pain control; no issues with operative sites. 2) AF with RVR -Not on home meds; holding off AC at the moment giving bleed risk. HR is 110- 140; likely precipitated by #1. Hydrating. Discussed case with cardiology. Defer further management to them. Once BP recovers can use BB vs CCB but should it happen again with her being hypotenive have to consider dig, amio, etc. 3) Metabolic acidosis with hypotension (shock) -Decreased CO2, VBG reviewed. Hydrating. VBG with AM labs. Likely due to the hypotension. Empirically covered with zosyn, drawing blood cultures, following lactate. Monitor for any shock liver, etc. LR@125 and PRN phenylephrine. -Ultimate management deferred to ICU team 4) Elevated Bili with distended GB -Abd US pending Full Cod
[2018-04-27 01:10] LABS: CALCIUM 5.2 mg/dL (8.5-10.1)
[2018-04-27] MEDS: LACTATED RINGERS SOLUTION 1,000 ML/1,000 ML INFUS.BAG IV SCH ×3 (01:13→08:17)
[2018-04-27] MEDS: MORPHINE SULFATE 2 MG/ML VIAL IVPUSH PRN ×3 (01:40→12:17)
[2018-04-27] MEDS ORDERED: ACETAMINOPHEN 1000 MG/100 ML VIAL (NON FORMULARY) IVPB ONE ×2 (01:44→18:45)
[2018-04-27 02:13] VITALS: BMI 25.3
[2018-04-27] MEDS ORDERED: CALCIUM GLUCONATE 10% - 1,000 MG/10 ML VIAL IVPB ONE ×2 (03:15→09:30)
[2018-04-27 05:15] LABS: ARTERIAL BLD GAS O2 SATURATION 97.4 % (90-98.9); ARTERIAL BLOOD GAS BASE EXCESS -7.8 meq/l (-2-2); ARTERIAL BLOOD GAS PCO2 32.5 mmHg (35-45); ARTERIAL BLOOD GAS PO2 94.1 mmHg (80-100); ARTERIAL BLOOD GAS pH 7.33 (7.35-7.45)
[2018-04-27 05:21] LABS: BASO % 0.2 % (0-2.0); HEMATOCRIT 30.5 % (32.4-45.2); HEMOGLOBIN 10.5 GM/dL (10.7-15.3); LYMPH % 13.5 % (8-40); MCH 28.6 pg (25.7-33.7); MCHC 34.6 g/dl (32.0-36.0); MEAN CELL VOLUME 82.6 fl (80-96); MEAN PLT VOLUME 7.2 fl (7.5-11.1); MONO % 7.5 % (3.8-10.2); NEUT % 78.8 % (42.8-82.8); PLATELET COUNT 165 K/MM3 (134-434); RBC 3.69 M/mm3 (3.60-5.2); RDW 13.6 % (11.6-15.6); WHITE BLOOD COUNT 13.2 K/mm3 (4.0-10.0)
[2018-04-27] MEDS ORDERED: ONDANSETRON 4 MG/2 ML VIAL IVPUSH PRN (05:39)
[2018-04-27 05:40] LABS: ALBUMIN 2.3 g/dl (3.4-5.0); ALK PHOS 49 U/L (45-117); ANION GAP 6 MMOL/L (8-16); BILIRUBIN,TOTAL 1.8 mg/dL (0.2-1); BLOOD UREA NITROGEN 5 mg/dL (7-18); CHLORIDE 115 mmol/L (98-107); CO2 21 mmol/L (21-32); CREATININE 0.7 mg/dL (0.55-1.3); GLUCOSE,RANDOM 203 mg/dL (74-106); MAGNESIUM 1.2 mg/dL (1.8-2.4); PHOSPHOROUS 2.3 mg/dL (2.5-4.9); POTASSIUM 3.5 mmol/L (3.5-5.1); SGOT/AST 16 U/L (15-37); SGPT/ALT 10 U/L (13-61); SODIUM 142 mmol/L (136-145); TOT PROT 4.4 g/dl (6.4-8.2)
[2018-04-27 05:42] LABS: CALCIUM 6.2 mg/dL (8.5-10.1)
[2018-04-27] MEDS ORDERED: MAGNESIUM SULF 50% (8.12 MEQ/2 ML-1 GM VIAL) IVPB ONE (06:54)
--- NOTE | 2018-04-27 07:43 | PN ---
Progress Note, Physician Chief Complaint: Nausea History of Present Illness: 33 yr old woman with Afib presented with vaginal bleeding and pain found ot have ectopic s/p salpingectomy. c/o nausea and lower abdominal pain. denies chest pain, palpitations, cough, Le edema, sob, headache, fevers. - Current Medication List Current Medications: Active Medications Chlorhexidine Gluconate (Hibiclens For Decolonization -) 1 applic TP HS RAINE Norepinephrine Bitartrate 8, (000 mcg/ Dextrose) 500 mls @ 18.75 mls/hr IV TITR RAINE; Protocol Last Titration: 04/27/18 01:00 Dose: 5 mcg/min, 18.75 mls/hr Phenylephrine HCl 10,000 mcg/ (Dextrose) 500 mls @ 300 mls/hr IV TITR RAINE; Protocol Last Admin: 04/27/18 04:44 Dose: 100 mcg/min, 300 mls/hr Lactated Ringer's (Lactated Ringers Solution) 1,000 ml in 1,000 mls @ 100 mls/ hr IV ASDIR RAINE Last Admin: 04/27/18 01:14 Dose: 100 mls/hr Piperacillin Sod/Tazobactam (Sod 3.375 gm/ Dextrose) 50 mls @ 100 mls/hr IVPB Q8H-IV RAINE; Protocol Ibuprofen (Caldolor Injection -) 800 mg IVPB Q8H PRN PRN Reason: FEVER Morphine Sulfate (Morphine Sulfate) 2 mg IVPUSH Q4H PRN PRN Reason: PAIN LEVEL 6-10 Last Admin: 04/27/18 05:41 Dose: 2 mg Mupirocin (Bactroban Ointment (For Decolonization) -) 1 applic NS BID RAINE Stop: 05/02/18 09:59 Ondansetron HCl (Zofran Injection) 4 mg IVPUSH Q6H PRN PRN Reason: NAUSEA AND/OR VOMITING Last Admin: 04/27/18 06:21 Dose: 4 mg - Objective Vital Signs: Vital Signs Temperature 98 F 04/27/18 06:00 Pulse Rate 149 H 04/27/18 06:24 Respiratory Rate 23 H 04/27/18 06:00 Blood Pressure 80/49 L 04/27/18 06:24 O2 Sat by Pulse Oximetry (%) 100 04/27/18 01:00 Constitutional: Yes: Well Nourished, No Distress, Calm Eyes: Yes: Conjunctiva Clear, EOM Intact, PERRL HENT: Yes: Atraumatic, Normocephalic Neck: Yes: Supple, Trachea Midline. No: Thyromegaly Cardiovascular: Yes: Tachycardia, S1, S2. No: Murmur Respiratory: Yes: Regular, CTA Bilaterally (anterior auscultation) Gastrointestinal: Yes: Soft, Other (diffuse mild tenderness. well healing laparotomy scars at umbilicus, RLQ and LLQ.) Genitourinary: Yes: Vo Present. No: Hematuria Musculoskeletal: No: Muscle Pain, Muscle Weakness Extremities: No: Calf Tenderness Edema: No Peripheral Pulses WNL: Yes Integumentary: No: Jaundice, Petechiae, Rash Wound/Incision: Yes: Clean/Dry. No: Draining, Reddened, Bleeding Neurological: Yes: Alert, Oriented Psychiatric: Yes: Alert, Oriented Labs: CBC, BMP 04/27/18 05:00 04/27/18 05:00 INR, PTT INR 1.18 (0.83-1.09) H 04/26/18 16:00 Assessment/Plan 33 yr old woman with afib s/p salpinectomy for ruptured ectopic being monitoring in the ICU for hypotension and tachycardia. - Cardiovascular hypotensive and sinus tachycardic, hx of afib - cardiology consult: dr. Gay - phenylephrine 100mcg/hr, attempting to wean(pt's tachycardia incr when started on levophed) - IVF NS @125cc/hr increase to 150cc/hr w/ bolus prn, - pt takes propafenone 225mg po bid prn when she feels palpitations, will defer while on pressors - informed Dr. Aftab Malhotra (pt's outpatient cigar sorter @ [facility] ), spoke with Elodia, first ablation in 2016 for atrial flutter/Afib, most recent ablation: 08/06/2017, then had reoccurance, ectopy is close to the AV node so likely cause of persistance, last office visit was in 11/2017. pt has not tolerated beta-blockers in the past due to hypotension and has a history of difficult to contral arrhythmia. office has faxed office progress notes, copy placed in chart - d/w with dr. gay, plan to dc pressors and then initiate beta-baltazar for rate control with close monitoring of BP and HR - Respiratory - incentive spirometry - Fluids, electrolytes, nutrition (FEN) - hypocalcemia (corrected 7.2 for hypoalbuminemia in AM labs) - given 1g CaGluc at 3am, ordered another gram this morning - Hypomagnasemia (1.2 this morning) - 2gm given this morning - hypophosphatemia - potassium phos 15 meq ordered - Infectious disease leucocytosis + tachycardia and hypotensive, emperic treatment - consulted dr. Vinson - continue zosyn IV q8hr - Hematology - s/p 3units pRBC's - Prophylaxis - SCD's, no medical ac due acute blood loss - vo in place for close I&O's while on pressors, plan to dc tomorrow morning - zofran prn for nausea - lines: Kimberli in right wrist, right femoral line placed 3/10 Activity -bed rest until hemodynamically stable Diet - normal as tolerated continue ICU level of care
[2018-04-27] MEDS ORDERED: POTASSIUM PHOSPHATE 15 MM in SODIUM CHLORIDE 250 ML IVPB ONE (08:42)
--- NOTE | 2018-04-27 09:33 | PN ---
Progress Note (short form) - Note Progress Note: Anesthesiology Post-op 33 y.o. woman POD#1 s/p right salpingectomy for ectopic under GA. She is currently being monitored in ICU due to tachyarrhythmia. BP has been soft and she was on pressors ON. She is currently off pressors. She remains with tachycardia as well as mild hypotension; she states that she does not feel symptoms however. She only c/o nausea. Per pt and RN, Cardiology to follow-up today. 33 y.o. woman with h/o tachyarrhythmia now post-op with same. Follow with Cardiology and continue management as per ICU.
[2018-04-27] MEDS ORDERED: POTASSIUM CHLORIDE TABS 20 MEQ TABLET.ER (FP) PO ONE (09:58)
[2018-04-27] MEDS ORDERED: PIPERACILLIN/TAZOB 3.375 GM 3.375 GM in DEXTROSE 5%-WATER - 50 ML IVPB SCH (10:00)
[2018-04-27] MEDS ORDERED: KCL 10 MEQ IVPB 10 MEQ/100 ML INFUS.BAG IVPB SCH (10:00)
--- NOTE | 2018-04-27 10:40 | EKG ---
Test Reason : Blood Pressure : / mmHG Vent. Rate : 125 BPM Atrial Rate : 136 BPM P-R Int : 000 ms QRS Dur : 062 ms QT Int : 280 ms P-R-T Axes : 000 069 -38 degrees QTc Int : 404 ms ATRIAL FIBRILLATION WITH RAPID VENTRICULAR RESPONSE NONSPECIFIC ST AND T WAVE ABNORMALITY ABNORMAL ECG WHEN COMPARED WITH ECG OF 27-JUN-2017 10:40, ATRIAL FIBRILLATION HAS REPLACED SINUS RHYTHM VENT. RATE HAS INCREASED BY 51 BPM T WAVE VARIATION Confirmed by TORIBIO RODNEY MD ([id number]) on 04/27/2018 10:40:07 AM Referred By: Confirmed By:TORIBIO RODNEY MD
[2018-04-27] MEDS: MUPIROCIN 2% TOPICAL OINTMENT FOR DECOLONIZATION NS SCH ×2 (10:48→21:52)
[2018-04-27] MEDS ORDERED: SODIUM CHLORIDE 500 ML IV STA (11:19)
--- NOTE | 2018-04-27 11:40 | PN ---
Teaching Attending Note Name of Resident: Kodi Slater ATTENDING PHYSICIAN STATEMENT I saw and evaluated the patient. I reviewed the resident's note and discussed the case with the resident. I agree with the resident's findings and plan as documented. SUBJECTIVE: Patient seen and examined in the ICU. Awake and alert. Pressors changed from NE to Phenylephrine due to worsening tachycardia. Some lower abdominal pain. No CP or SOB. Intake & Output 04/24/18 04/25/18 04/26/18 04/27/18 22:59 22:59 23:59 23:59 Intake Total 3687 Output Total 2900 Balance 787 Weight 143 lb Last Vital Signs Temp Pulse Resp BP Pulse Ox 98 F 152 H 20 116/62 100 04/27/18 06:00 04/27/18 10:00 04/27/18 08:00 04/27/18 10:00 04/27/18 09:00 Active Medications Chlorhexidine Gluconate (Hibiclens For Decolonization -) 1 applic TP HS RAINE Norepinephrine Bitartrate 8, (000 mcg/ Dextrose) 500 mls @ 18.75 mls/hr IV TITR RAINE; Protocol Last Titration: 04/27/18 01:00 Dose: 5 mcg/min, 18.75 mls/hr Phenylephrine HCl 10,000 mcg/ (Dextrose) 500 mls @ 300 mls/hr IV TITR RAINE; Protocol Last Admin: 04/27/18 09:34 Dose: 100 mcg/min, 300 mls/hr Lactated Ringer's (Lactated Ringers Solution) 1,000 ml in 1,000 mls @ 100 mls/ hr IV ASDIR RAINE Last Admin: 04/27/18 08:17 Dose: 100 mls/hr Piperacillin Sod/Tazobactam (Sod 3.375 gm/ Dextrose) 50 mls @ 100 mls/hr IVPB Q8H-IV RAINE; Protocol Last Admin: 04/27/18 09:42 Dose: 100 mls/hr Potassium Phosphate 15 mm/ (Sodium Chloride) 255 mls @ 62.5 mls/hr IVPB ONCE ONE Stop: 04/27/18 12:46 Last Admin: 04/27/18 09:20 Dose: 62.5 mls/hr Sodium Chloride (Normal Saline -) 500 mls @ 500 mls/hr IV ASDIR STA Stop: 04/27/18 12:18 Ibuprofen (Caldolor Injection -) 800 mg IVPB Q8H PRN PRN Reason: FEVER Morphine Sulfate (Morphine Sulfate) 2 mg IVPUSH Q4H PRN PRN Reason: PAIN LEVEL 6-10 Last Admin: 04/27/18 05:41 Dose: 2 mg Mupirocin (Bactroban Ointment (For Decolonization) -) 1 applic NS BID RAINE Stop: 05/02/18 09:59 Last Admin: 04/27/18 10:48 Dose: 1 applic Ondansetron HCl (Zofran Injection) 4 mg IVPUSH Q6H PRN PRN Reason: NAUSEA AND/OR VOMITING Last Admin: 04/27/18 06:21 Dose: 4 mg Constitutional: Yes: Mildly uncomfortable due to pain, NAD Eyes: Yes: Conjunctiva Clear, EOM Intact HENT: Yes: Atraumatic, Normocephalic Neck: Yes: Supple, Trachea Midline Cardiovascular: Yes: Tachycardia, S1, S2. No: Gallop, Murmur, Rub Respiratory: Yes: Regular, CTA Bilaterally Gastrointestinal: Yes: Soft, Hypoactive Bowel Sounds, (+) tenderness in the lower abdominal/pelvic area Extremities: No: Calf Tenderness, Cold, Cyanosis, Deformity Edema: No Peripheral Pulses WNL: Yes Wound/Incision: Yes: Clean/Dry, Well Approximated Neurological: Yes: Alert, Oriented ...Motor Strength: WNL Psychiatric: Yes: Alert, Oriented Labs: Laboratory Results - last 24 hr 04/26/18 04/26/18 04/26/18 15:40 15:40 15:40 WBC RBC Hgb Hct MCV MCH MCHC RDW Plt Count MPV Absolute Neuts (auto) Neutrophils % Lymphocytes % Monocytes % Eosinophils % Basophils % Nucleated RBC % PT with INR INR Anticoagulation Therapy Puncture Site ABG pH ABG pCO2 at Pt Temp ABG pO2 at Pt Temp ABG HCO3 ABG O2 Sat (Measured) ABG O2 Content ABG Base Excess Rc Test VBG pH POC VBG pCO2 POC VBG pO2 VBG HCO3 VBG O2 Sat (July) VBG Base Excess O2 Delivery Device Oxygen Flow Rate Vent Mode Vent Rate Mechanical Rate Pressure Support Vent Sodium Potassium Chloride Carbon Dioxide Anion Gap BUN Creatinine Creat Clearance w eGFR Random Glucose Lactic Acid 2.0 Calcium Phosphorus Magnesium Total Bilirubin AST ALT Alkaline Phosphatase Total Protein Albumin Lipase Beta HCG, Quant 1629.2 Serum , Qual Urine Color Urine Appearance Urine pH Ur Specific [place] Urine Protein Urine Glucose (UA) Urine Ketones Urine Blood Urine Nitrite Urine Bilirubin Urine Urobilinogen Ur Leukocyte Esterase Blood Type O NEGATIVE Antibody Screen Negative Crossmatch See Detail Crossmatch IS Only See Detail Unit Expiration Date No Result Required. 04/26/18 04/26/18 04/26/18 15:43 15:43 15:43 WBC 10.0 RBC 4.38 Hgb 12.7 Hct 36.8 MCV 84.1 MCH 29.0 MCHC 34.4 RDW 13.6 Plt Count 234 MPV 7.4 L Absolute Neuts (auto) 6.3 Neutrophils % 63.5 Lymphocytes % 27.6 D Monocytes % 7.3 Eosinophils % 1.3 Basophils % 0.3 Nucleated RBC % 0 PT with INR INR Anticoagulation Therapy Puncture Site ABG pH ABG pCO2 at Pt Temp ABG pO2 at Pt Temp ABG HCO3 ABG O2 Sat (Measured) ABG O2 Content ABG Base Excess Rc Test VBG pH POC VBG pCO2 POC VBG pO2 VBG HCO3 VBG O2 Sat (July) VBG Base Excess O2 Delivery Device Oxygen Flow Rate Vent Mode Vent Rate Mechanical Rate Pressure Support Vent Sodium 140 Potassium 3.3 L Chloride 106 Carbon Dioxide 27 Anion Gap 6 L BUN 12 Creatinine 0.7 Creat Clearance w eGFR > 60 Random Glucose 91 Lactic Acid Calcium 8.4 L Phosphorus Magnesium Total Bilirubin 0.4 AST 7 L ALT 14 Alkaline Phosphatase 85 Total Protein 7.3 Albumin 3.8 Lipase 114 Beta HCG, Quant Serum , Qual Positive Urine Color Urine Appearance Urine pH Ur Specific [place] Urine Protein Urine Glucose (UA) Urine Ketones Urine Blood Urine Nitrite Urine Bilirubin Urine Urobilinogen Ur Leukocyte Esterase Blood Type Antibody Screen Crossmatch Crossmatch IS Only Unit Expiration Date 04/26/18 04/26/18 04/26/18 16:00 19:40 23:57 WBC 17.8 H RBC 3.83 Hgb 11.0 Hct 32.3 L MCV 84.4 MCH 28.7 MCHC 34.0 RDW 13.8 Plt Count 192 MPV 7.5 Absolute Neuts (auto) 15.6 H Neutrophils % 88.0 H D Lymphocytes % 6.5 L D Monocytes % 5.4 Eosinophils % 0.0 D Basophils % 0.1 Nucleated RBC % 0 PT with INR 13.90 H INR 1.18 H Anticoagulation Therapy Puncture Site ABG pH ABG pCO2 at Pt Temp ABG pO2 at Pt Temp ABG HCO3 ABG O2 Sat (Measured) ABG O2 Content ABG Base Excess Rc Test VBG pH POC VBG pCO2 POC VBG pO2 VBG HCO3 VBG O2 Sat (July) VBG Base Excess O2 Delivery Device Oxygen Flow Rate Vent Mode Vent Rate Mechanical Rate Pressure Support Vent Sodium Potassium Chloride Carbon Dioxide Anion Gap BUN Creatinine Creat Clearance w eGFR Random Glucose Lactic Acid Calcium Phosphorus Magnesium Total Bilirubin AST ALT Alkaline Phosphatase Total Protein Albumin Lipase Beta HCG, Quant Serum , Qual Urine Color Straw Urine Appearance Clear Urine pH 6.0 Ur Specific [place] 1.011 Urine Protein Negative Urine Glucose (UA) Negative Urine Ketones Negative Urine Blood Negative Urine Nitrite Negative Urine Bilirubin Negative Urine Urobilinogen Negative Ur Leukocyte Esterase Negative Blood Type Antibody Screen Crossmatch Crossmatch IS Only Unit Expiration Date 04/26/18 04/27/18 04/27/18 23:57 00:28 05:00 WBC 13.2 H RBC 3.69 Hgb 10.5 L Hct 30.5 L MCV 82.6 MCH 28.6 MCHC 34.6 RDW 13.6 Plt Count 165 MPV 7.2 L Absolute Neuts (auto) 10.4 H Neutrophils % 78.8 Lymphocytes % 13.5 D Monocytes % 7.5 Eosinophils % 0.0 Basophils % 0.2 Nucleated RBC % 0 PT with INR INR Anticoagulation Therapy Puncture Site ABG pH ABG pCO2 at Pt Temp ABG pO2 at Pt Temp ABG HCO3 ABG O2 Sat (Measured) ABG O2 Content ABG Base Excess Rc Test VBG pH 7.24 L* POC VBG pCO2 43.2 POC VBG pO2 34.2 VBG HCO3 17.8 L* VBG O2 Sat (July) 58.9 H* VBG Base Excess -8.6 L O2 Delivery Device Oxygen Flow Rate Vent Mode Vent Rate Mechanical Rate Pressure Support Vent Sodium 141 Potassium 3.9 Chloride 116 H Carbon Dioxide 17 L Anion Gap 8 BUN 5 L Creatinine 0.5 L Creat Clearance w eGFR > 60 Random Glucose 136 H Lactic Acid Calcium 5.2 L* Phosphorus Magnesium Total Bilirubin 1.5 H AST 25 ALT 16 Alkaline Phosphatase 62 Total Protein 5.0 L Albumin 2.4 L Lipase Beta HCG, Quant Serum , Qual Urine Color Urine Appearance Urine pH Ur Specific [place] Urine Protein Urine Glucose (UA) Urine Ketones Urine Blood Urine Nitrite Urine Bilirubin Urine Urobilinogen Ur Leukocyte Esterase Blood Type Antibody Screen Crossmatch Crossmatch IS Only Unit Expiration Date 04/27/18 04/27/18 04/27/18 05:00 05:00 05:10 WBC RBC Hgb Hct MCV MCH MCHC RDW Plt Count MPV Absolute Neuts (auto) Neutrophils % Lymphocytes % Monocytes % Eosinophils % Basophils % Nucleated RBC % PT with INR INR Anticoagulation Therapy No Result Required. Puncture Site No Result Required. ABG pH 7.33 L ABG pCO2 at Pt Temp 32.5 L ABG pO2 at Pt Temp 94.1 ABG HCO3 16.8 L ABG O2 Sat (Measured) 97.4 ABG O2 Content 13.5 L ABG Base Excess -7.8 L Rc Test Not applicable VBG pH POC VBG pCO2 POC VBG pO2 VBG HCO3 VBG O2 Sat (July) VBG Base Excess O2 Delivery Device No Result Required. Oxygen Flow Rate 21% Vent Mode No Result Required. Vent Rate No Result Required. Mechanical Rate No Result Required. Pressure Support Vent No Result Required. Sodium 142 Potassium 3.5 Chloride 115 H Carbon Dioxide 21 Anion Gap 6 L BUN 5 L Creatinine 0.7 Creat Clearance w eGFR > 60 Random Glucose 203 H Lactic Acid 1.3 Calcium 6.2 L* Phosphorus 2.3 L Magnesium 1.2 L Total Bilirubin 1.8 H AST 16 ALT 10 L Alkaline Phosphatase 49 Total Protein 4.4 L Albumin 2.3 L Lipase Beta HCG, Quant Serum , Qual Urine Color Urine Appearance Urine pH Ur Specific [place] Urine Protein Urine Glucose (UA) Urine Ketones Urine Blood Urine Nitrite Urine Bilirubin Urine Urobilinogen Ur Leukocyte Esterase Blood Type Antibody Screen Crossmatch Crossmatch IS Only Unit Expiration Date Assessment/Plan Shock: R/O Sepsis due to an intra-abdominal source. R/O Hypovolemia Atrial fibrillation (s/p ablation x2) Ruptured ectopic S/P laparoscopic right salphingectomy SVT Increase IVF Fluid boluses ID evaluation for ABX O2 as needed Incentive Spirometry Can restart home home cardiac meds for better rate control Strict I & O Pain control with MS PO as tolerated Requires ICU monitoring Dr Sheriff Critical care time spent in reviewing chart, evaluating patient and formulating plan - 36 minutes.
--- NOTE | 2018-04-27 12:19 | PN ---
Progress Note, Physician History of Present Illness: 33 F with h/o afib s/p ablation x 2, not currently on AC or rate control, presenting to ED with abdominal pain. Pt states that the pain began last night. It is localized to her suprapubic region and 10/10 in intensity. Pt states that the pain resolved spontaneously last night, but this afternoon it recurred and has been constant. Pt denies any N/V. Denies F/C. Denies radiation of pain anywhere else. Denies CP/SOB. Denies vaginal discharge/bleeding. Denies dysuria. PMH Family health history Daughter Born with SVT Mother Post heart condition 21 Ongoing medical problems No evidence of accessory pathway or inducible tachycardia March 21, 2010 Palpitations Paroxysmal atrial fibrillation March 21, 2010 s/p ablation x2 Dr. Malhotra [facility] - Current Medication List Current Medications: Active Medications Chlorhexidine Gluconate (Hibiclens For Decolonization -) 1 applic TP HS RAINE Norepinephrine Bitartrate 8, (000 mcg/ Dextrose) 500 mls @ 18.75 mls/hr IV TITR RAINE; Protocol Last Titration: 04/27/18 01:00 Dose: 5 mcg/min, 18.75 mls/hr Phenylephrine HCl 10,000 mcg/ (Dextrose) 500 mls @ 300 mls/hr IV TITR RAINE; Protocol Last Admin: 04/27/18 11:39 Dose: 75 mcg/min, 225 mls/hr Lactated Ringer's (Lactated Ringers Solution) 1,000 ml in 1,000 mls @ 100 mls/ hr IV ASDIR RAINE Last Admin: 04/27/18 08:17 Dose: 100 mls/hr Piperacillin Sod/Tazobactam (Sod 3.375 gm/ Dextrose) 50 mls @ 100 mls/hr IVPB Q8H-IV RAINE; Protocol Last Admin: 04/27/18 09:42 Dose: 100 mls/hr Potassium Phosphate 15 mm/ (Sodium Chloride) 255 mls @ 62.5 mls/hr IVPB ONCE ONE Stop: 04/27/18 12:46 Last Admin: 04/27/18 09:20 Dose: 62.5 mls/hr Ibuprofen (Caldolor Injection -) 800 mg IVPB Q8H PRN PRN Reason: FEVER Morphine Sulfate (Morphine Sulfate) 2 mg IVPUSH Q4H PRN PRN Reason: PAIN LEVEL 6-10 Last Admin: 04/27/18 05:41 Dose: 2 mg Mupirocin (Bactroban Ointment (For Decolonization) -) 1 applic NS BID RAINE Stop: 05/02/18 09:59 Last Admin: 04/27/18 10:48 Dose: 1 applic Ondansetron HCl (Zofran Injection) 4 mg IVPUSH Q6H PRN PRN Reason: NAUSEA AND/OR VOMITING Last Admin: 04/27/18 06:21 Dose: 4 mg - Objective Vital Signs: Vital Signs Temperature 99.1 F 04/27/18 10:00 Pulse Rate 152 H 04/27/18 11:39 Respiratory Rate 20 04/27/18 08:00 Blood Pressure 116/62 04/27/18 11:39 O2 Sat by Pulse Oximetry (%) 100 04/27/18 09:00 Eyes: Yes: WNL, Conjunctiva Clear, EOM Intact HENT: Yes: WNL, Atraumatic, Normocephalic Neck: Yes: WNL, Supple, Trachea Midline Cardiovascular: Yes: WNL, Pulse Irregular, S1, S2 Respiratory: Yes: WNL, Regular, CTA Bilaterally Gastrointestinal: Yes: WNL, Normal Bowel Sounds Genitourinary: Yes: WNL Musculoskeletal: Yes: WNL Extremities: Yes: WNL Edema: No Integumentary: Yes: WNL Neurological: Yes: WNL, Alert, Oriented ...Motor Strength: WNL Psychiatric: Yes: WNL Labs: CBC, BMP 04/27/18 05:00 04/27/18 05:00 INR, PTT INR 1.18 (0.83-1.09) H 04/26/18 16:00 Problem List - Problems (1) Atrial flutter with rapid ventricular response Code(s): I48.92 - UNSPECIFIED ATRIAL FLUTTER (2) Ectopic Code(s): O00.90 - UNSPECIFIED ECTOPIC WITHOUT INTRAUTERINE (3) Ruptured ectopic Code(s): O00.90 - UNSPECIFIED ECTOPIC WITHOUT INTRAUTERINE (4) Abdominal discomfort Code(s): R10.9 - UNSPECIFIED ABDOMINAL PAIN (5) Abnormal EKG Code(s): R94.31 - ABNORMAL ELECTROCARDIOGRAM [ECG] [EKG] (6) Atrial fibrillation Code(s): I48.91 - UNSPECIFIED ATRIAL FIBRILLATION Qualifiers: Atrial fibrillation type: paroxysmal Qualified Code(s): I48.0 - Paroxysmal atrial fibrillation (7) Chest pain Code(s): R07.9 - CHEST PAIN, UNSPECIFIED (8) Epigastric pain Code(s): R10.13 - EPIGASTRIC PAIN (9) Light-headed Code(s): R42 - DIZZINESS AND GIDDINESS (10) Microcytic anemia Code(s): D50.9 - IRON DEFICIENCY ANEMIA, UNSPECIFIED (11) Palpitations Code(s): R00.2 - PALPITATIONS (12) Paroxysmal atrial fibrillation Code(s): I48.0 - PAROXYSMAL ATRIAL FIBRILLATION (13) Peptic ulcer disease Code(s): K27.9 - PEPTIC ULC, SITE UNSP, UNSP AC OR CHR, W/O HEMOR OR PERF (14) Code(s): Z33.1 - STATE, INCIDENTAL Assessment/Plan Shock: R/O Sepsis due to an intra-abdominal source. R/O Hypovolemia AF RVR Atrial fibrillation (s/p ablation x2) Ruptured ectopic S/P laparoscopic right salphingectomy Plan IVF ABX taperr off pressors BB for rate control when off pressors CC time 36 min
[2018-04-27 12:53] LABS: BASO % 0.3 % (0-2.0); EOS % 0.1 % (0-4.5); HEMATOCRIT 31.8 % (32.4-45.2); HEMOGLOBIN 11.2 GM/dL (10.7-15.3); LYMPH % 10.4 % (8-40); MCHC 35.1 g/dl (32.0-36.0); MEAN CELL VOLUME 82.4 fl (80-96); MEAN PLT VOLUME 7.1 fl (7.5-11.1); MONO % 8.1 % (3.8-10.2); NEUT % 81.1 % (42.8-82.8); PLATELET COUNT 175 K/MM3 (134-434); RBC 3.85 M/mm3 (3.60-5.2); RDW 13.9 % (11.6-15.6); WHITE BLOOD COUNT 12.5 K/mm3 (4.0-10.0)
--- NOTE | 2018-04-27 14:59 | PN ---
Teaching Attending Note Name of Resident: Aftab Kwon ATTENDING PHYSICIAN STATEMENT I saw and evaluated the patient. I reviewed the resident's note and discussed the case with the resident. I agree with the resident's findings and plan as documented. SUBJECTIVE:c/o abdominal pain but overall improved since admission. feels some tachycardia. denies CP, SOB, fever, chills, N/V/C/D, vaginal bleeding OBJECTIVE: Last Vital Signs Temp Pulse Resp BP Pulse Ox 99.1 F 150 H 20 102/84 100 04/27/18 10:00 04/27/18 14:00 04/27/18 14:00 04/27/18 14:00 04/27/18 09:00 Intake & Output 04/24/18 04/25/18 04/26/18 04/27/18 22:59 22:59 23:59 23:59 Intake Total 3687 Output Total 2900 Balance 787 Weight 143 lb General letharic, mild discomfort CV S1 S2 tachy Lungs CTA anteriorly ABodmen surgical bandages with dried blood. slightly distended, soft Extremities no pedal edema ASSESSMENT AND PLAN: 33yo F wtih PMH afib s/p ablation x2 presented to the ER iwth abdominal pain and vomiting and found to have a ruptured ectopic in the R fallopian tube s/p R salpingoectomy. course complicated with Afib with RVR and distributive shock requiring pressors 1. Ruptured ectopic - s/p R salpingectomy 04/26. on empiric zosyn day 2. further recommendations per PAST DUE ACCOUNTS CLERK. pain control. f/u cx 2. Afib with RVR- currently in SVT. was never on cardizem ggt due to hypotension. will re-start betablocker as BP permits. cardio on board 3. Acute blood loss anemia- due to surgery. s/p 3 units PRBC this hospital stay. trend Hgb BID, normal transfusion thresholds. no reports of bleeding at this itme 4. Hypovolemic shock-was on levo but switched due to worsening tachycardia. currently on pheylephrine 100mcg. titrate down as BP tolerates. received 3 units of PRBC and currently on LR. 5. Hypokalemia- KCl in IVF. goal k >4.5 6. Hypomangesemia- Mg IV goal Mg >2.5 7. Hypocalcemia- Corrected Ca 7.6. can give IV at this time 8. DVT ppx- SCD. would hold pharmacologic with bleeding 9. MICU monitoring The care of this patient involved high complexity decision making to prevent further life threatening deterioration of the patient's condition and/or to evaluate & treat vital organ system(s) failure or risk of failure. 45 mins
--- NOTE | 2018-04-27 15:14 | PN ---
Progress Note (short form) - Note Progress Note: ID CONSULT DICTATED POD#1 LAPAROSCOPIC R SALPINGECTOMY RUPTURED ECTOPIC / HEMOPERITONEUM HYPOTENSION/ TACHYCARDIA R/O SEPSIS PENDING C/S EMPIRIC ZOSYN
--- NOTE | 2018-04-27 15:43 | PN ---
Physical Exam: SUBJECTIVE: Patient seen and examined at bedside in the ICU. POD1 s/p right laparoscopic salpingectomy. Affirms ongoing pain, somewhat lethargic, no further bleeding. OBJECTIVE: Vital Signs Period Temp Pulse Resp BP Sys/Elizabeth Pulse Ox Last 24 Hr 98 F-99.1 F 113-156 13-32 80-140/32-102 99-100 GENERAL: A&Ox3, NAD, sluggish HEENT: NC/AT, PERRLA, EOMI, MMM NECK: Trachea midline, full range of motion, supple. LUNGS: CTA b/l in anterior mccoy, could not assess posterior HEART: tachycardic, could not assess regularity, no m/r/g ABDOMEN: soft, diffusely tender, dressed in surgical bandages EXTREMITIES: 2+ pulses, warm, well-perfused, no edema. 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 SKIN: Warm, dry, normal turgor, no rashes or lesions noted Laboratory Results - last 24 hr 04/26/18 04/26/18 04/26/18 15:40 15:40 15:40 WBC RBC Hgb Hct MCV MCH MCHC RDW Plt Count MPV Absolute Neuts (auto) Neutrophils % Lymphocytes % Monocytes % Eosinophils % Basophils % Nucleated RBC % PT with INR INR Anticoagulation Therapy Puncture Site ABG pH ABG pCO2 at Pt Temp ABG pO2 at Pt Temp ABG HCO3 ABG O2 Sat (Measured) ABG O2 Content ABG Base Excess Rc Test VBG pH POC VBG pCO2 POC VBG pO2 VBG HCO3 VBG O2 Sat (July) VBG Base Excess O2 Delivery Device Oxygen Flow Rate Vent Mode Vent Rate Mechanical Rate Pressure Support Vent Sodium Potassium Chloride Carbon Dioxide Anion Gap BUN Creatinine Creat Clearance w eGFR Random Glucose Lactic Acid 2.0 Calcium Phosphorus Magnesium Total Bilirubin AST ALT Alkaline Phosphatase Total Protein Albumin Lipase Beta HCG, Quant 1629.2 Serum , Qual Urine Color Urine Appearance Urine pH Ur Specific [place] Urine Protein Urine Glucose (UA) Urine Ketones Urine Blood Urine Nitrite Urine Bilirubin Urine Urobilinogen Ur Leukocyte Esterase Blood Type O NEGATIVE Antibody Screen Negative Crossmatch See Detail Crossmatch IS Only See Detail Unit Expiration Date No Result Required. 04/26/18 04/26/18 04/26/18 15:43 15:43 15:43 WBC 10.0 RBC 4.38 Hgb 12.7 Hct 36.8 MCV 84.1 MCH 29.0 MCHC 34.4 RDW 13.6 Plt Count 234 MPV 7.4 L Absolute Neuts (auto) 6.3 Neutrophils % 63.5 Lymphocytes % 27.6 D Monocytes % 7.3 Eosinophils % 1.3 Basophils % 0.3 Nucleated RBC % 0 PT with INR INR Anticoagulation Therapy Puncture Site ABG pH ABG pCO2 at Pt Temp ABG pO2 at Pt Temp ABG HCO3 ABG O2 Sat (Measured) ABG O2 Content ABG Base Excess Rc Test VBG pH POC VBG pCO2 POC VBG pO2 VBG HCO3 VBG O2 Sat (July) VBG Base Excess O2 Delivery Device Oxygen Flow Rate Vent Mode Vent Rate Mechanical Rate Pressure Support Vent Sodium 140 Potassium 3.3 L Chloride 106 Carbon Dioxide 27 Anion Gap 6 L BUN 12 Creatinine 0.7 Creat Clearance w eGFR > 60 Random Glucose 91 Lactic Acid Calcium 8.4 L Phosphorus Magnesium Total Bilirubin 0.4 AST 7 L ALT 14 Alkaline Phosphatase 85 Total Protein 7.3 Albumin 3.8 Lipase 114 Beta HCG, Quant Serum , Qual Positive Urine Color Urine Appearance Urine pH Ur Specific [place] Urine Protein Urine Glucose (UA) Urine Ketones Urine Blood Urine Nitrite Urine Bilirubin Urine Urobilinogen Ur Leukocyte Esterase Blood Type Antibody Screen Crossmatch Crossmatch IS Only Unit Expiration Date 04/26/18 04/26/18 04/26/18 16:00 19:40 23:57 WBC 17.8 H RBC 3.83 Hgb 11.0 Hct 32.3 L MCV 84.4 MCH 28.7 MCHC 34.0 RDW 13.8 Plt Count 192 MPV 7.5 Absolute Neuts (auto) 15.6 H Neutrophils % 88.0 H D Lymphocytes % 6.5 L D Monocytes % 5.4 Eosinophils % 0.0 D Basophils % 0.1 Nucleated RBC % 0 PT with INR 13.90 H INR 1.18 H Anticoagulation Therapy Puncture Site ABG pH ABG pCO2 at Pt Temp ABG pO2 at Pt Temp ABG HCO3 ABG O2 Sat (Measured) ABG O2 Content ABG Base Excess Rc Test VBG pH POC VBG pCO2 POC VBG pO2 VBG HCO3 VBG O2 Sat (July) VBG Base Excess O2 Delivery Device Oxygen Flow Rate Vent Mode Vent Rate Mechanical Rate Pressure Support Vent Sodium Potassium Chloride Carbon Dioxide Anion Gap BUN Creatinine Creat Clearance w eGFR Random Glucose Lactic Acid Calcium Phosphorus Magnesium Total Bilirubin AST ALT Alkaline Phosphatase Total Protein Albumin Lipase Beta HCG, Quant Serum , Qual Urine Color Straw Urine Appearance Clear Urine pH 6.0 Ur Specific [place] 1.011 Urine Protein Negative Urine Glucose (UA) Negative Urine Ketones Negative Urine Blood Negative Urine Nitrite Negative Urine Bilirubin Negative Urine Urobilinogen Negative Ur Leukocyte Esterase Negative Blood Type Antibody Screen Crossmatch Crossmatch IS Only Unit Expiration Date 04/26/18 04/27/18 04/27/18 23:57 00:28 05:00 WBC 13.2 H RBC 3.69 Hgb 10.5 L Hct 30.5 L MCV 82.6 MCH 28.6 MCHC 34.6 RDW 13.6 Plt Count 165 MPV 7.2 L Absolute Neuts (auto) 10.4 H Neutrophils % 78.8 Lymphocytes % 13.5 D Monocytes % 7.5 Eosinophils % 0.0 Basophils % 0.2 Nucleated RBC % 0 PT with INR INR Anticoagulation Therapy Puncture Site ABG pH ABG pCO2 at Pt Temp ABG pO2 at Pt Temp ABG HCO3 ABG O2 Sat (Measured) ABG O2 Content ABG Base Excess Rc Test VBG pH 7.24 L* POC VBG pCO2 43.2 POC VBG pO2 34.2 VBG HCO3 17.8 L* VBG O2 Sat (July) 58.9 H* VBG Base Excess -8.6 L O2 Delivery Device Oxygen Flow Rate Vent Mode Vent Rate Mechanical Rate Pressure Support Vent Sodium 141 Potassium 3.9 Chloride 116 H Carbon Dioxide 17 L Anion Gap 8 BUN 5 L Creatinine 0.5 L Creat Clearance w eGFR > 60 Random Glucose 136 H Lactic Acid Calcium 5.2 L* Phosphorus Magnesium Total Bilirubin 1.5 H AST 25 ALT 16 Alkaline Phosphatase 62 Total Protein 5.0 L Albumin 2.4 L Lipase Beta HCG, Quant Serum , Qual Urine Color Urine Appearance Urine pH Ur Specific [place] Urine Protein Urine Glucose (UA) Urine Ketones Urine Blood Urine Nitrite Urine Bilirubin Urine Urobilinogen Ur Leukocyte Esterase Blood Type Antibody Screen Crossmatch Crossmatch IS Only Unit Expiration Date 04/27/18 04/27/18 04/27/18 05:00 05:00 05:10 WBC RBC Hgb Hct MCV MCH MCHC RDW Plt Count MPV Absolute Neuts (auto) Neutrophils % Lymphocytes % Monocytes % Eosinophils % Basophils % Nucleated RBC % PT with INR INR Anticoagulation Therapy No Result Required. Puncture Site No Result Required. ABG pH 7.33 L ABG pCO2 at Pt Temp 32.5 L ABG pO2 at Pt Temp 94.1 ABG HCO3 16.8 L ABG O2 Sat (Measured) 97.4 ABG O2 Content 13.5 L ABG Base Excess -7.8 L Rc Test Not applicable VBG pH POC VBG pCO2 POC VBG pO2 VBG HCO3 VBG O2 Sat (July) VBG Base Excess O2 Delivery Device No Result Required. Oxygen Flow Rate 21% Vent Mode No Result Required. Vent Rate No Result Required. Mechanical Rate No Result Required. Pressure Support Vent No Result Required. Sodium 142 Potassium 3.5 Chloride 115 H Carbon Dioxide 21 Anion Gap 6 L BUN 5 L Creatinine 0.7 Creat Clearance w eGFR > 60 Random Glucose 203 H Lactic Acid 1.3 Calcium 6.2 L* Phosphorus 2.3 L Magnesium 1.2 L Total Bilirubin 1.8 H AST 16 ALT 10 L Alkaline Phosphatase 49 Total Protein 4.4 L Albumin 2.3 L Lipase Beta HCG, Quant Serum , Qual Urine Color Urine Appearance Urine pH Ur Specific [place] Urine Protein Urine Glucose (UA) Urine Ketones Urine Blood Urine Nitrite Urine Bilirubin Urine Urobilinogen Ur Leukocyte Esterase Blood Type Antibody Screen Crossmatch Crossmatch IS Only Unit Expiration Date 04/27/18 12:00 WBC 12.5 H RBC 3.85 Hgb 11.2 Hct 31.8 L MCV 82.4 MCH 29.0 MCHC 35.1 RDW 13.9 Plt Count 175 MPV 7.1 L Absolute Neuts (auto) 10.1 H Neutrophils % 81.1 Lymphocytes % 10.4 D Monocytes % 8.1 Eosinophils % 0.1 D Basophils % 0.3 Nucleated RBC % 0 PT with INR INR Anticoagulation Therapy Puncture Site ABG pH ABG pCO2 at Pt Temp ABG pO2 at Pt Temp ABG HCO3 ABG O2 Sat (Measured) ABG O2 Content ABG Base Excess Rc Test VBG pH POC VBG pCO2 POC VBG pO2 VBG HCO3 VBG O2 Sat (July) VBG Base Excess O2 Delivery Device Oxygen Flow Rate Vent Mode Vent Rate Mechanical Rate Pressure Support Vent Sodium Potassium Chloride Carbon Dioxide Anion Gap BUN Creatinine Creat Clearance w eGFR Random Glucose Lactic Acid Calcium Phosphorus Magnesium Total Bilirubin AST ALT Alkaline Phosphatase Total Protein Albumin Lipase Beta HCG, Quant Serum , Qual Urine Color Urine Appearance Urine pH Ur Specific [place] Urine Protein Urine Glucose (UA) Urine Ketones Urine Blood Urine Nitrite Urine Bilirubin Urine Urobilinogen Ur Leukocyte Esterase Blood Type Antibody Screen Crossmatch Crossmatch IS Only Unit Expiration Date Active Medications Generic Name Dose Route Start Last Admin Trade Name Freq PRN Reason Stop Dose Admin Chlorhexidine Gluconate 1 applic 04/27/18 22:00 Hibiclens For Decolonization - TP HS RAINE Norepinephrine Bitartrate 8, 500 mls @ 18.75 mls/hr 04/27/18 00:30 04/27/18 01:00 000 mcg/ Dextrose IV 5 mcg/min TITR RAINE 18.75 mls/hr Titration Protocol 5 MCG/MIN Phenylephrine HCl 10,000 mcg/ 500 mls @ 300 mls/hr 04/27/18 00:45 04/27/18 14 :00 Dextrose IV 25 mcg/min TITR RAINE 75 mls/hr Infusion Protocol 100 MCG/MIN Lactated Ringer's 1,000 ml in 1,000 mls @ 100 mls/hr 04/27/18 01:15 04/27/18 08:17 Lactated Ringers Solution IV 100 mls/hr ASDIR RAINE Administration Piperacillin Sod/Tazobactam 50 mls @ 100 mls/hr 04/27/18 18:00 Sod 3.375 gm/ Dextrose IVPB Q8H-IV RAINE Protocol Ibuprofen 800 mg 04/26/18 23:34 04/27/18 14:52 Caldolor Injection - IVPB 800 mg Q8H PRN Administration FEVER Morphine Sulfate 2 mg 04/27/18 01:44 04/27/18 12:17 Morphine Sulfate IVPUSH 2 mg Q4H PRN Administration PAIN LEVEL 6-10 Mupirocin 1 applic 04/27/18 10:00 04/27/18 10:48 Bactroban Ointment (For Decolonization) - NS 05/02/18 09:59 1 applic BID RAINE Administration Patient's Own 3 each 04/27/18 16:00 Medication ( PO 04/27/18 16:01 Propafenone 225mg) ONCE ONE Ondansetron HCl 4 mg 04/27/18 05:39 04/27/18 06:21 Zofran Injection IVPUSH 4 mg Q6H PRN Administration NAUSEA AND/OR VOMITING ASSESSMENT/PLAN: 33 y/o F r old woman w/ PMHx Afib s/p ablation x 2, p/w sudden onset lower abdominal pain and vaginal bleeding, admitted to ICU for ruptured ectopic with afib s/p salpinectomy for ectopic being monitoring in the ICU for hypotension and tachycardia. #OBGYN -POD1 s/p right laparoscopic salpingectomy for ruptured ectopic w/ Dr. Florez -s/p 3U PRBC -serial CBC stable #CV -Afib vs. SVT -hypotensive -cardiology on board -Levophed exacerbated tachycardia, now on phenylephrine, will attempt to wean -ICU team will initiate chemical cardioversion with propafenone #Respiratory -IS #FEN -LR @ 100 -monitor and correct electrolyte abnormalities -regular diet #PPx -DVT: SCDs -GI: not indicated #code -full #dispo -cont to monitor in ICU Visit type - Emergency Visit Emergency Visit: No - New Patient This patient is new to me today: Yes Date on this admission: 04/27/18 - Critical Care Critical Care patient: Yes Total Critical Care Time (in minutes): 40 Critical Care Statement: The care of this patient involved high complexity decision making to prevent further life threatening deterioration of the patient 's condition and/or to evaluate & treat vital organ system(s) failure or risk of failure.
[2018-04-27] MEDS ORDERED: PROPAFENONE 225 MG PO ONE (16:00)
[2018-04-27] MEDS ORDERED: METOPROLOL TARTRATE 25 MG TABLET (FP) PO SCH (18:08)
[2018-04-27] MEDS: PIPERACILLIN/TAZOB 3.375 GM 3.375 GM in DEXTROSE 5%-WATER - 50 ML IVPB SCH (18:19)
[2018-04-27] MEDS ORDERED: SIMETHICONE 40 MG/0.6 ML BOTTLE PO PRN (18:20)
--- NOTE | 2018-04-27 18:49 | CONS ---
DATE OF CONSULTATION: DATE OF DICTATION: 04/27/2018 HISTORY OF PRESENT ILLNESS: The patient is a 33-year-old female who was evaluated for possible sepsis. She presented to the emergency room on April 26, 2018, with onset of right lower quadrant abdominal pain associated with vaginal bleeding. She also experienced nausea with no vomiting. A sonogram was performed that showed a large complex right adnexal mass with free fluid. Concern was raised over the possibility of a ruptured ectopic . Patient was taken to the operating room on April 26, 2018, where a laparoscopic right salpingectomy was performed. Operative findings included hemoperitoneum and tubal . She required transfusion of multiple units of packed red blood cells. Her hospital course has been complicated by tachycardia and hypotension. She is presently in the intensive care unit on pressors. She has been afebrile. PAST MEDICAL HISTORY: Positive for atrial fibrillation status post ablation procedures. ALLERGIES: No known allergies. MEDICATION: Include Zofran, norepinephrine, ibuprofen, morphine sulfate, phenylephrine. SOCIAL HISTORY: Lives at home in the community. Nonsmoker, nondrinker. REVIEW OF SYSTEMS: Neurologic: No loss of consciousness, seizure activity, focal weakness. Cardiac: As per HPI. Respiratory: Negative cough or sputum reduction. Gastrointestinal: Positive nausea, no vomiting. Genitourinary: Negative for urinary tract infection. LABORATORY DATA: White count 12.5, hematocrit 31.8, platelet count 175, creatinine 0.7. Urinalysis negative. Blood and urine cultures pending. PHYSICAL EXAMINATION: General: On exam, she is supine in bed. Vital signs: Temperature 99.1, blood pressure 98/75, pulse 152, respirations 20 per minute. HEENT: Sclerae anicteric. Cardiovascular: Heart sounds S1, S2. Tachycardic. Lungs: Clear. Abdomen: Slightly distended, mild diffuse tenderness. Laparoscopic wounds without evidence of infection. Extremities: Negative for edema. Negative Homans sign. IMPRESSION: 1. Postoperative day number 1, laparoscopic right salpingectomy for ruptured ectopic . 2. Hemoperitoneum. 3. Tachycardia hypotension. Pending sepsis workup would empirically cover pelvic pathogens with Zosyn 3.375 g IV piggyback every 8 hours. Will do chlamydia and GC screen. Continue hemodynamic support, pressors as needed, will follow, thank you for the kind referral. ADRIAN RIOS M.D. [id number]
[2018-04-27] MEDS ORDERED: POTASSIUM CHLORIDE ORAL LIQUID 20 MEQ/15 ML PO ONE (19:00)
[2018-04-27] MEDS ORDERED: METOPROLOL TARTRATE 25 MG TABLET (FP) PO ONE (19:00)
[2018-04-27] MEDS ORDERED: METOPROLOL TARTRATE 50 MG TABLET (FP) PO ONE (20:02)
--- NOTE | 2018-04-27 20:02 | PN ---
Progress Note (short form) - Note Progress Note: Patient was given PO Propafenone 675 mg once at 4:39 pm today. Her heart rate has been persistently between 140's-155 bpm. Will give her PO Lopressor 50mg now and change it to lopressor 50mg TID, as per Dr. North.
[2018-04-27] MEDS: KCL 10 MEQ IVPB 10 MEQ/100 ML INFUS.BAG IVPB SCH ×3 (20:19→23:15)
[2018-04-27] MEDS ORDERED: CHLORHEXIDINE GLUCONATE 4% CLEANSER FOR DECOLONIZATION TP SCH (22:00)
--- NOTE | 2018-04-27 23:45 | EKG ---
Test Reason : Blood Pressure : / mmHG Vent. Rate : 153 BPM Atrial Rate : 000 BPM P-R Int : 000 ms QRS Dur : 064 ms QT Int : 278 ms P-R-T Axes : 000 017 -13 degrees QTc Int : 443 ms SUPRAVENTRICULAR TACHYCARDIA OTHERWISE NORMAL ECG WHEN COMPARED WITH ECG OF 26-APR-2018 14:25, NOTE RHYTHM CHANGE VENT. RATE HAS INCREASED Confirmed by TORIBIO RODNEY MD ([id number]) on 04/27/2018 11:45:02 PM Referred By: GINNY REID DR Confirmed By:TORIBIO RODNEY MD
[2018-04-28] MEDS ORDERED: DEXTROSE 5%-WATER - 50 ML IVPB ONE ×3 (02:01→16:35)
[2018-04-28] MEDS ORDERED: PIPERACILLIN/TAZOBACTAM 3.375 GM VIAL IVPB ONE ×3 (02:01→16:34)
[2018-04-28] MEDS: PIPERACILLIN/TAZOB 3.375 GM 3.375 GM in DEXTROSE 5%-WATER - 50 ML IVPB SCH ×3 (02:13→18:00)
[2018-04-28] MEDS: LACTATED RINGERS SOLUTION 1,000 ML/1,000 ML INFUS.BAG IV SCH ×2 (02:17→12:56)
[2018-04-28] MEDS: PHENYLEPHRINE HCL 10,000 MCG in DEXTROSE 5%-WATER - 499 ML IV SCH (02:18)
[2018-04-28 06:21] LABS: BASO % 0.3 % (0-2.0); EOS % 2.5 % (0-4.5); HEMATOCRIT 27.9 % (32.4-45.2); HEMOGLOBIN 9.8 GM/dL (10.7-15.3); LYMPH % 20.3 % (8-40); MCHC 35.1 g/dl (32.0-36.0); MEAN CELL VOLUME 82.6 fl (80-96); MEAN PLT VOLUME 7.5 fl (7.5-11.1); MONO % 6.9 % (3.8-10.2); PLATELET COUNT 123 K/MM3 (134-434); RBC 3.38 M/mm3 (3.60-5.2); RDW 14.1 % (11.6-15.6); WHITE BLOOD COUNT 9.2 K/mm3 (4.0-10.0)
[2018-04-28] MEDS: METOPROLOL TARTRATE 50 MG TABLET (FP) PO SCH ×3 (06:24→21:27)
[2018-04-28 06:41] LABS: INR 1.35 (0.83-1.09)
[2018-04-28 06:52] LABS: ALBUMIN 2.2 g/dl (3.4-5.0); ALK PHOS 52 U/L (45-117); ANION GAP 4 MMOL/L (8-16); BILIRUBIN,TOTAL 0.7 mg/dL (0.2-1); BLOOD UREA NITROGEN 5 mg/dL (7-18); CHLORIDE 113 mmol/L (98-107); CO2 25 mmol/L (21-32); CREATININE 0.7 mg/dL (0.55-1.3); GLUCOSE,RANDOM 80 mg/dL (74-106); MAGNESIUM 1.7 mg/dL (1.8-2.4); PHOSPHOROUS 2.1 mg/dL (2.5-4.9); POTASSIUM 3.9 mmol/L (3.5-5.1); SGOT/AST 22 U/L (15-37); SGPT/ALT 12 U/L (13-61); SODIUM 141 mmol/L (136-145); TOT PROT 4.7 g/dl (6.4-8.2)
[2018-04-28] MEDS ORDERED: PT OWN MED DRAWER 7, Y5N ONE (06:56)
[2018-04-28 07:04] LABS: CALCIUM 6.9 mg/dL (8.5-10.1)
--- NOTE | 2018-04-28 07:45 | PN ---
Physical Exam: SUBJECTIVE: Patient seen and examined at bedside. Joycelyn regular diet and passing flatus. Pt received Propafenone 675 mg x1 yesterday afternoon, HR remained elevated, then received PO Lopressor 50 mg x1, then TID. Heart rate stabilized ~ 9pm last night and has been stable ever since. No other acute events overnight. OBJECTIVE: Vital Signs Period Temp Pulse Resp BP Sys/Elizabeth Pulse Ox Last 24 Hr 98.2 F-99.5 F 92-154 18-24 84-116/60-84 98-100 Intake & Output 04/25/18 04/26/18 04/27/18 04/28/18 22:59 23:59 23:59 23:59 Intake Total 7637 1550 Output Total 6900 1200 Balance 737 350 Weight 64.864 kg 29.438 kg GENERAL: A&Ox3, NAD. HEENT: NC/AT, PERRLA, EOMI, MMM NECK: Trachea midline, full range of motion, supple. LUNGS: CTA b/l HEART: RRR, normal S1, S2. no m/r/g ABDOMEN: soft, diffusely tender, dressed in surgical bandages EXTREMITIES: 2+ pulses, warm, well-perfused, no edema. 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 SKIN: Warm, dry, normal turgor, no rashes or lesions noted Laboratory Results - last 24 hr 04/27/18 04/28/18 04/28/18 12:00 05:30 05:30 WBC 12.5 H 9.2 RBC 3.85 3.38 L Hgb 11.2 9.8 L Hct 31.8 L 27.9 L MCV 82.4 82.6 MCH 29.0 29.0 MCHC 35.1 35.1 RDW 13.9 14.1 Plt Count 175 123 L D MPV 7.1 L 7.5 Absolute Neuts (auto) 10.1 H 6.4 Neutrophils % 81.1 70.0 Lymphocytes % 10.4 D 20.3 D Monocytes % 8.1 6.9 Eosinophils % 0.1 D 2.5 D Basophils % 0.3 0.3 Nucleated RBC % 0 0 PT with INR 16.00 H INR 1.35 H Sodium Potassium Chloride Carbon Dioxide Anion Gap BUN Creatinine Creat Clearance w eGFR Random Glucose Calcium Phosphorus Magnesium Total Bilirubin AST ALT Alkaline Phosphatase Total Protein Albumin 04/28/18 05:30 WBC RBC Hgb Hct MCV MCH MCHC RDW Plt Count MPV Absolute Neuts (auto) Neutrophils % Lymphocytes % Monocytes % Eosinophils % Basophils % Nucleated RBC % PT with INR INR Sodium 141 Potassium 3.9 Chloride 113 H Carbon Dioxide 25 Anion Gap 4 L BUN 5 L Creatinine 0.7 Creat Clearance w eGFR > 60 Random Glucose 80 Calcium 6.9 L* Phosphorus 2.1 L Magnesium 1.7 L Total Bilirubin 0.7 AST 22 ALT 12 L Alkaline Phosphatase 52 Total Protein 4.7 L Albumin 2.2 L Active Medications Chlorhexidine Gluconate (Hibiclens For Decolonization -) 1 applic TP HS RAINE Last Admin: 04/27/18 21:52 Dose: 1 applic Phenylephrine HCl 10,000 mcg/ (Dextrose) 500 mls @ 300 mls/hr IV TITR RAINE; Protocol Last Admin: 04/28/18 02:18 Dose: Not Given Lactated Ringer's (Lactated Ringers Solution) 1,000 ml in 1,000 mls @ 100 mls/ hr IV ASDIR RAINE Last Admin: 04/28/18 02:17 Dose: 100 mls/hr Piperacillin Sod/Tazobactam (Sod 3.375 gm/ Dextrose) 50 mls @ 100 mls/hr IVPB Q8H-IV RAINE; Protocol Last Admin: 04/28/18 10:55 Dose: 100 mls/hr Metoprolol Tartrate (Lopressor -) 50 mg PO TID RAINE Last Admin: 04/28/18 06:24 Dose: 50 mg Morphine Sulfate (Morphine Sulfate) 2 mg IVPUSH Q4H PRN PRN Reason: PAIN LEVEL 6-10 Last Admin: 04/27/18 12:17 Dose: 2 mg Mupirocin (Bactroban Ointment (For Decolonization) -) 1 applic NS BID RAINE Stop: 05/02/18 09:59 Last Admin: 04/28/18 10:55 Dose: 1 applic Ondansetron HCl (Zofran Injection) 4 mg IVPUSH Q6H PRN PRN Reason: NAUSEA AND/OR VOMITING Last Admin: 04/27/18 06:21 Dose: 4 mg Simethicone (Mylicon Liquid -) 40 mg PO Q6H PRN PRN Reason: GAS Last Admin: 04/27/18 18:43 Dose: 40 mg ASSESSMENT/PLAN: 33 y/o F r old woman w/ PMHx Afib s/p ablation x 2, p/w sudden onset lower abdominal pain and vaginal bleeding, admitted to ICU for ruptured ectopic with afib s/p salpinectomy for ectopic being monitored in the ICU for hypotension and tachycardia. OBGYN #S/p R salpingectomy for ectopic , POD #2 -3U pRBC given this hospital admission CV #Hx of SVT vs. Afib -Yesterday, weaned off Phenylephrine; given 1 dose of Propafenone 675 mg x1, then Lopressor 50 -Currently on Metoprolol Tartrate 50 TID for rate control -F/u cardio recs (Dr. Gay) PULM -IS HEME -s/p pRBC this hospital admission -serial CBCs stable so far -cont to monitor H/H ID #Leukocytosis -Per ID, cont empiric Zosyn 3.375 (Day 3) pending C/S -Await ID recs PROPHYLAXIS -DVT: TEDs, SCDs FEN -LR @ 100 -replete PRN -Regular diet LINES -A line/R femoral/Grimaldo removed today Dispo -Transfer to tele Visit type - Emergency Visit Emergency Visit: Yes ED Registration Date: 04/26/18 Care time: The patient presented to the Emergency Department on the above date and was hospitalized for further evaluation of their emergent condition. - New Patient This patient is new to me today: Yes Date on this admission: 04/28/18 - Critical Care Critical Care patient: Yes Total Critical Care Time (in minutes): 45 Critical Care Statement: The care of this patient involved high complexity decision making to prevent further life threatening deterioration of the patient 's condition and/or to evaluate & treat vital organ system(s) failure or risk of failure.
[2018-04-28] MEDS ORDERED: MAGNESIUM OXIDE 400 MG TABLET (FP) PO ONE (08:00)
[2018-04-28] MEDS ORDERED: MAGNESIUM SULF 50% (8.12 MEQ/2 ML-1 GM VIAL) IVPB ONE ×2 (08:00→17:35)
--- NOTE | 2018-04-28 08:11 | PN ---
Physical Exam: SUBJECTIVE: Patient seen and examined at bedside in ICU, improvement in pain and nausea, some vaginal spotting, racing heart sensation resolved. OBJECTIVE: Vital Signs Period Temp Pulse Resp BP Sys/Elizabeth Pulse Ox Last 24 Hr 98.2 F-99.5 F 92-154 18-24 84-116/60-84 98-100 GENERAL: A&Ox3, NAD, sluggish HEENT: NC/AT, PERRLA, EOMI, MMM NECK: Trachea midline, full range of motion, supple. LUNGS: CTA b/l HEART: tachycardic, could not assess regularity, no m/r/g ABDOMEN: soft, diffusely tender, dressed in surgical bandages EXTREMITIES: 2+ pulses, warm, well-perfused, no edema. 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 SKIN: Warm, dry, normal turgor, no rashes or lesions noted Laboratory Results - last 24 hr 04/27/18 04/28/18 04/28/18 12:00 05:30 05:30 WBC 12.5 H 9.2 RBC 3.85 3.38 L Hgb 11.2 9.8 L Hct 31.8 L 27.9 L MCV 82.4 82.6 MCH 29.0 29.0 MCHC 35.1 35.1 RDW 13.9 14.1 Plt Count 175 123 L D MPV 7.1 L 7.5 Absolute Neuts (auto) 10.1 H 6.4 Neutrophils % 81.1 70.0 Lymphocytes % 10.4 D 20.3 D Monocytes % 8.1 6.9 Eosinophils % 0.1 D 2.5 D Basophils % 0.3 0.3 Nucleated RBC % 0 0 PT with INR 16.00 H INR 1.35 H Sodium Potassium Chloride Carbon Dioxide Anion Gap BUN Creatinine Creat Clearance w eGFR Random Glucose Calcium Phosphorus Magnesium Total Bilirubin AST ALT Alkaline Phosphatase Total Protein Albumin 04/28/18 05:30 WBC RBC Hgb Hct MCV MCH MCHC RDW Plt Count MPV Absolute Neuts (auto) Neutrophils % Lymphocytes % Monocytes % Eosinophils % Basophils % Nucleated RBC % PT with INR INR Sodium 141 Potassium 3.9 Chloride 113 H Carbon Dioxide 25 Anion Gap 4 L BUN 5 L Creatinine 0.7 Creat Clearance w eGFR > 60 Random Glucose 80 Calcium 6.9 L* Phosphorus 2.1 L Magnesium 1.7 L Total Bilirubin 0.7 AST 22 ALT 12 L Alkaline Phosphatase 52 Total Protein 4.7 L Albumin 2.2 L Active Medications Generic Name Dose Route Start Last Admin Trade Name Valenteq PRN Reason Stop Dose Admin Chlorhexidine Gluconate 1 applic 04/27/18 22:00 04/27/18 21:52 Hibiclens For Decolonization - TP 1 applic HS RAINE Administration Norepinephrine Bitartrate 8, 500 mls @ 18.75 mls/hr 04/27/18 00:30 04/27/18 01:00 000 mcg/ Dextrose IV 5 mcg/min TITR RAINE 18.75 mls/hr Titration Protocol 5 MCG/MIN Phenylephrine HCl 10,000 mcg/ 500 mls @ 300 mls/hr 04/27/18 00:45 04/28/18 02 :18 Dextrose IV Not Given TITR RANIE Protocol 100 MCG/MIN Lactated Ringer's 1,000 ml in 1,000 mls @ 100 mls/hr 04/27/18 01:15 04/28/18 02:17 Lactated Ringers Solution IV 100 mls/hr ASDIR RAINE Administration Piperacillin Sod/Tazobactam 50 mls @ 100 mls/hr 04/27/18 18:00 04/28/18 02:13 Sod 3.375 gm/ Dextrose IVPB 100 mls/hr Q8H-IV RAINE Administration Protocol Metoprolol Tartrate 50 mg 04/28/18 06:00 04/28/18 06:24 Lopressor - PO 50 mg TID RAINE Administration Morphine Sulfate 2 mg 04/27/18 01:44 04/27/18 12:17 Morphine Sulfate IVPUSH 2 mg Q4H PRN Administration PAIN LEVEL 6-10 Mupirocin 1 applic 04/27/18 10:00 04/27/18 21:52 Bactroban Ointment (For Decolonization) - NS 05/02/18 09:59 1 applic BID RAINE Administration Ondansetron HCl 4 mg 04/27/18 05:39 04/27/18 06:21 Zofran Injection IVPUSH 4 mg Q6H PRN Administration NAUSEA AND/OR VOMITING Simethicone 40 mg 04/27/18 18:20 04/27/18 18:43 Mylicon Liquid - PO 40 mg Q6H PRN Administration GAS ASSESSMENT/PLAN: 33 y/o F r old woman w/ PMHx Afib s/p ablation x 2, p/w sudden onset lower abdominal pain and vaginal bleeding, admitted to ICU for ruptured ectopic with afib s/p salpinectomy for ectopic being monitoring in the ICU for hypotension and tachycardia. #OBGYN -POD2 s/p right laparoscopic salpingectomy for ruptured ectopic w/ Dr. Florez -s/p 3U PRBC #CV -chemically cardioverted with one-time PO propafenone -now on Lopressor 50 TID -successfully weaned from pressors and maintaining MAP > 65 -will remove central and arterial lines if Pt remains stable #heme -all 3 cell lines downtrending this AM, likely dilutional effect -afternoon CBC in light of vaginal spotting #Respiratory -IS #FEN -LR @ 100 -monitor and correct electrolyte abnormalities -regular diet #lines/catheters -for femoral line/a-line/vo removal today #PPx -DVT: SCDs -GI: not indicated #code -full #dispo -for transfer to telemetry Visit type - Emergency Visit Emergency Visit: No - New Patient This patient is new to me today: No - Critical Care Critical Care patient: Yes Total Critical Care Time (in minutes): 40 Critical Care Statement: The care of this patient involved high complexity decision making to prevent further life threatening deterioration of the patient 's condition and/or to evaluate & treat vital organ system(s) failure or risk of failure.
--- NOTE | 2018-04-28 10:45 | PN ---
Progress Note, Physician History of Present Illness: 33 F with h/o afib s/p ablation x 2, not currently on AC or rate control, presenting to ED with abdominal pain. Pt states that the pain began last night. It is localized to her suprapubic region and 10/10 in intensity. Pt states that the pain resolved spontaneously last night, but this afternoon it recurred and has been constant. Pt denies any N/V. Denies F/C. Denies radiation of pain anywhere else. Denies CP/SOB. Denies vaginal discharge/bleeding. Denies dysuria. PMH Family health history Daughter Born with SVT Mother Post heart condition 21 Ongoing medical problems No evidence of accessory pathway or inducible tachycardia March 21, 2010 Palpitations Paroxysmal atrial fibrillation March 21, 2010 s/p ablation x2 Dr. Malhotra [facility] - Current Medication List Current Medications: Active Medications Chlorhexidine Gluconate (Hibiclens For Decolonization -) 1 applic TP HS [facility] Last Admin: 04/27/18 21:52 Dose: 1 applic Phenylephrine HCl 10,000 mcg/ (Dextrose) 500 mls @ 300 mls/hr IV TITR [facility]; Protocol Last Admin: 04/28/18 02:18 Dose: Not Given Lactated Ringer's (Lactated Ringers Solution) 1,000 ml in 1,000 mls @ 100 mls/ hr IV ASDIR [facility] Last Admin: 04/28/18 02:17 Dose: 100 mls/hr Piperacillin Sod/Tazobactam (Sod 3.375 gm/ Dextrose) 50 mls @ 100 mls/hr IVPB Q8H-IV [facility]; Protocol Last Admin: 04/28/18 02:13 Dose: 100 mls/hr Metoprolol Tartrate (Lopressor -) 50 mg PO TID [facility] Last Admin: 04/28/18 06:24 Dose: 50 mg Morphine Sulfate (Morphine Sulfate) 2 mg IVPUSH Q4H PRN PRN Reason: PAIN LEVEL 6-10 Last Admin: 04/27/18 12:17 Dose: 2 mg Mupirocin (Bactroban Ointment (For Decolonization) -) 1 applic NS BID [facility] Stop: 05/02/18 09:59 Last Admin: 04/27/18 21:52 Dose: 1 applic Ondansetron HCl (Zofran Injection) 4 mg IVPUSH Q6H PRN PRN Reason: NAUSEA AND/OR VOMITING Last Admin: 04/27/18 06:21 Dose: 4 mg Simethicone (Mylicon Liquid -) 40 mg PO Q6H PRN PRN Reason: GAS Last Admin: 04/27/18 18:43 Dose: 40 mg - Objective Vital Signs: Vital Signs Temperature 98.6 F 04/28/18 08:00 Pulse Rate 92 H 04/28/18 08:00 Respiratory Rate 20 04/28/18 08:00 Blood Pressure 90/62 04/28/18 08:00 O2 Sat by Pulse Oximetry (%) 98 04/27/18 21:00 Eyes: Yes: WNL, Conjunctiva Clear, EOM Intact HENT: Yes: WNL, Atraumatic, Normocephalic Neck: Yes: WNL, Supple, Trachea Midline Cardiovascular: Yes: WNL, Regular Rate and Rhythm Respiratory: Yes: WNL, Regular, CTA Bilaterally Gastrointestinal: Yes: WNL, Normal Bowel Sounds Genitourinary: Yes: WNL Musculoskeletal: Yes: WNL Extremities: Yes: WNL Edema: No Integumentary: Yes: WNL Neurological: Yes: WNL, Alert, Oriented ...Motor Strength: WNL Psychiatric: Yes: WNL Labs: CBC, BMP 04/28/18 05:30 04/28/18 05:30 INR, PTT INR 1.35 (0.83-1.09) H 04/28/18 05:30 Problem List - Problems (1) Atrial flutter with rapid ventricular response Code(s): I48.92 - UNSPECIFIED ATRIAL FLUTTER (2) Ectopic Code(s): O00.90 - UNSPECIFIED ECTOPIC WITHOUT INTRAUTERINE (3) Ruptured ectopic Code(s): O00.90 - UNSPECIFIED ECTOPIC WITHOUT INTRAUTERINE (4) Abdominal discomfort Code(s): R10.9 - UNSPECIFIED ABDOMINAL PAIN (5) Abnormal EKG Code(s): R94.31 - ABNORMAL ELECTROCARDIOGRAM [ECG] [EKG] (6) Atrial fibrillation Code(s): I48.91 - UNSPECIFIED ATRIAL FIBRILLATION Qualifiers: Atrial fibrillation type: paroxysmal Qualified Code(s): I48.0 - Paroxysmal atrial fibrillation (7) Chest pain Code(s): R07.9 - CHEST PAIN, UNSPECIFIED (8) Epigastric pain Code(s): R10.13 - EPIGASTRIC PAIN (9) Light-headed Code(s): R42 - DIZZINESS AND GIDDINESS (10) Microcytic anemia Code(s): D50.9 - IRON DEFICIENCY ANEMIA, UNSPECIFIED (11) Palpitations Code(s): R00.2 - PALPITATIONS (12) Paroxysmal atrial fibrillation Code(s): I48.0 - PAROXYSMAL ATRIAL FIBRILLATION (13) Peptic ulcer disease Code(s): K27.9 - PEPTIC ULC, SITE UNSP, UNSP AC OR CHR, W/O HEMOR OR PERF (14) Code(s): Z33.1 - STATE, INCIDENTAL Assessment/Plan s/p septic shock / Sepsis due to an intra-abdominal source. AF RVR in sr now Atrial fibrillation (s/p ablation x2) Ruptured ectopic S/P laparoscopic right salphingectomy Plan IVF ABX cont bb restart AC when ok from WORKERS COMPENSATION CLAIMS EXAMINER point of view CC time 36 min
[2018-04-28] MEDS: MUPIROCIN 2% TOPICAL OINTMENT FOR DECOLONIZATION NS SCH (10:55)
[2018-04-28] MEDS ORDERED: POTASSIUM CHLORIDE TABS 20 MEQ TABLET.ER (FP) PO ONE (11:33)
--- NOTE | 2018-04-28 11:38 | PN ---
Teaching Attending Note Name of Resident: Madeline Oh ATTENDING PHYSICIAN STATEMENT I saw and evaluated the patient. I reviewed the resident's note and discussed the case with the resident. I agree with the resident's findings and plan as documented. SUBJECTIVE: Patient seen and examined in the ICU. Awake and alert. Off pressors. Lower abdominal pain is better. No CP or SOB. Intake & Output 04/25/18 04/26/18 04/27/18 04/28/18 22:59 23:59 23:59 23:59 Intake Total 7637 1550 Output Total 6900 1200 Balance 737 350 Weight 143 lb 64 lb 14.4 oz Last Vital Signs Temp Pulse Resp BP Pulse Ox 98.2 F 83 24 H 87/63 L 100 04/28/18 10:00 04/28/18 10:00 04/28/18 10:00 04/28/18 10:00 04/28/18 09:00 Active Medications Chlorhexidine Gluconate (Hibiclens For Decolonization -) 1 applic TP HS [facility] Last Admin: 04/27/18 21:52 Dose: 1 applic Phenylephrine HCl 10,000 mcg/ (Dextrose) 500 mls @ 300 mls/hr IV TITR [facility]; Protocol Last Admin: 04/28/18 02:18 Dose: Not Given Lactated Ringer's (Lactated Ringers Solution) 1,000 ml in 1,000 mls @ 100 mls/ hr IV ASDIR [facility] Last Admin: 04/28/18 02:17 Dose: 100 mls/hr Piperacillin Sod/Tazobactam (Sod 3.375 gm/ Dextrose) 50 mls @ 100 mls/hr IVPB Q8H-IV [facility]; Protocol Last Admin: 04/28/18 10:55 Dose: 100 mls/hr Metoprolol Tartrate (Lopressor -) 50 mg PO TID [facility] Last Admin: 04/28/18 06:24 Dose: 50 mg Morphine Sulfate (Morphine Sulfate) 2 mg IVPUSH Q4H PRN PRN Reason: PAIN LEVEL 6-10 Last Admin: 04/27/18 12:17 Dose: 2 mg Mupirocin (Bactroban Ointment (For Decolonization) -) 1 applic NS BID [facility] Stop: 05/02/18 09:59 Last Admin: 04/28/18 10:55 Dose: 1 applic Ondansetron HCl (Zofran Injection) 4 mg IVPUSH Q6H PRN PRN Reason: NAUSEA AND/OR VOMITING Last Admin: 04/27/18 06:21 Dose: 4 mg Simethicone (Mylicon Liquid -) 40 mg PO Q6H PRN PRN Reason: GAS Last Admin: 04/27/18 18:43 Dose: 40 mg Constitutional: Yes: More comfortable today Eyes: Yes: Conjunctiva Clear, EOM Intact HENT: Yes: Atraumatic, Normocephalic Neck: Yes: Supple, Trachea Midline Cardiovascular: Yes: Tachycardia, S1, S2. No: Gallop, Murmur, Rub Respiratory: Yes: Regular, CTA Bilaterally Gastrointestinal: Yes: Soft, Hypoactive Bowel Sounds, (+) mild tenderness in the lower abdominal/pelvic area Extremities: No: Calf Tenderness, Cold, Cyanosis, Deformity Edema: No Peripheral Pulses WNL: Yes Wound/Incision: Yes: Clean/Dry, Well Approximated Neurological: Yes: Alert, Oriented ...Motor Strength: WNL Psychiatric: Yes: Alert, Oriented Labs: Laboratory Results - last 24 hr 04/27/18 04/28/18 04/28/18 12:00 05:30 05:30 WBC 12.5 H 9.2 RBC 3.85 3.38 L Hgb 11.2 9.8 L Hct 31.8 L 27.9 L MCV 82.4 82.6 MCH 29.0 29.0 MCHC 35.1 35.1 RDW 13.9 14.1 Plt Count 175 123 L D MPV 7.1 L 7.5 Absolute Neuts (auto) 10.1 H 6.4 Neutrophils % 81.1 70.0 Lymphocytes % 10.4 D 20.3 D Monocytes % 8.1 6.9 Eosinophils % 0.1 D 2.5 D Basophils % 0.3 0.3 Nucleated RBC % 0 0 PT with INR 16.00 H INR 1.35 H Sodium Potassium Chloride Carbon Dioxide Anion Gap BUN Creatinine Creat Clearance w eGFR Random Glucose Calcium Phosphorus Magnesium Total Bilirubin AST ALT Alkaline Phosphatase Total Protein Albumin 04/28/18 05:30 WBC RBC Hgb Hct MCV MCH MCHC RDW Plt Count MPV Absolute Neuts (auto) Neutrophils % Lymphocytes % Monocytes % Eosinophils % Basophils % Nucleated RBC % PT with INR INR Sodium 141 Potassium 3.9 Chloride 113 H Carbon Dioxide 25 Anion Gap 4 L BUN 5 L Creatinine 0.7 Creat Clearance w eGFR > 60 Random Glucose 80 Calcium 6.9 L* Phosphorus 2.1 L Magnesium 1.7 L Total Bilirubin 0.7 AST 22 ALT 12 L Alkaline Phosphatase 52 Total Protein 4.7 L Albumin 2.2 L Assessment/Plan Shock: R/O Sepsis due to an intra-abdominal source. R/O Hypovolemia Atrial fibrillation (s/p ablation x2) Ruptured ectopic S/P laparoscopic right salphingectomy SVT Continue IVF ABX per ID O2 as needed Incentive Spirometry Home cardiac meds Strict I & O Pain control PO as tolerated Dr Sheriff
--- NOTE | 2018-04-28 12:53 | OP ---
DATE OF OPERATION: 04/26/2018 PREOPERATIVE DIAGNOSIS: Pelvic pain, vaginal bleeding, and ectopic . POSTOPERATIVE DIAGNOSIS: Ruptured right tubal . SURGEON: Larisa Florez MD BURLAPPER: Dino Dalal MD ANESTHESIA: General. PROCEDURE: Laparoscopic right salpingectomy. ESTIMATED BLOOD LOSS: 500 mL. DESCRIPTION OF PROCEDURE: Patient was taken to the operating room, where general anesthesia was administered. Patient was then placed in lithotomy position. She was then prepped and draped in proper sterile fashion. A weighted speculum was placed in the vagina. The anterior lip of the cervix was grasped with a single-tooth tenaculum. A HUMI uterine manipulator was then advanced into the uterus to provide the means to manipulate the uterus. Speculum was removed from the vagina. Attention was then turned to the patients abdomen where a 5-mm skin incision was made at the umbilical fold. The Veres needle was carefully introduced into the peritoneal cavity while tenting the abdominal wall. Intraperitoneal placement was confirmed by use of a water-filled syringe and drop intraabdominal pressure with insufflation of CO2 gas. The trocar and sleeve were then advanced without difficulty into the abdomen, where intraabdominal placement was confirmed by the laparoscope. Pneumoperitoneum was obtained with 3 L of CO2 gas, and the 5-mm trocar and sleeve were then advanced without difficulty into the abdomen where intraabdominal placement was confirmed by the laparoscope. The 2nd and 3rd skin incisions were made 5 cm away from the midline on each side. The 2nd and 3rd trocar and sleeve were then advanced under direct visualization. A survey of the patients pelvis and abdomen revealed 1000 mL of hemoperitoneum and an aborted right tubal . Then, using the suction device, the clots were evacuated from the abdomen. The LigaSure device was used to cut the right fallopian tube. The pelvis and abdomen were completely irrigated, and the right tube was removed from the abdomen through the right port. When finished, using a Zaki-Suarez, the fascia on the right side was closed using endo suture, and the other incisions were closed using 3-0 Vicryl followed by Dermabond. The instruments were then removed. The patient was taken out of lithotomy position and was taken to ICU due to personal history of atrial fibrillation. PATHOLOGY: Right fallopian tube. Sol [id number] MTDD
[2018-04-28 13:25] LABS: BASO % 0.3 % (0-2.0); EOS % 2.4 % (0-4.5); HEMATOCRIT 30.2 % (32.4-45.2); HEMOGLOBIN 10.6 GM/dL (10.7-15.3); LYMPH % 16.8 % (8-40); MCH 29.4 pg (25.7-33.7); MEAN CELL VOLUME 83.9 fl (80-96); MEAN PLT VOLUME 7.4 fl (7.5-11.1); MONO % 6.3 % (3.8-10.2); NEUT % 74.2 % (42.8-82.8); PLATELET COUNT 129 K/MM3 (134-434); RDW 14.4 % (11.6-15.6); WHITE BLOOD COUNT 9.4 K/mm3 (4.0-10.0)
--- NOTE | 2018-04-28 14:09 | PATH ---
Surgical Pathology Report Patient Name: BERT ORELLANA [facility]. Rec. #: [id number] /Age/Gender: 1985 (Age: 33) / F Account: [id number] Location: [facility] Taken: 04/26/2018 Received: 04/27/2018 Reported: 04/28/2018 Physicians: Larisa Florez M.D. PHYSICIAN EMERGENCY DEPT Specimen(s) Received RIGHT FALLOPIAN TUBE Clinical History Ruptured ectopic Right tubal Final Diagnosis FALLOPIAN TUBE, RIGHT, LAPAROSCOPIC SALPINGECTOMY: CHORIONIC VILLI IN A BACKGROUND OF HEMORRHAGE PRESENT AT THE FALLOPIAN TUBE FIMBRIA, CONSISTENT WITH ECTOPIC . Electronically Signed Rosario Funk M.D. Gross Description Received in formalin labeled "right fallopian tube," is a 2.5 x 2.0 x 0.7 cm portion of lorenz-brown soft tissue, possibly consistent with a ruptured fallopian tube. No definite villous tissue or somatic tissues identified. The specimen is sectioned and entirely submitted in 3 cassettes. /04/27/2018 [facility]/04/27/2018
--- NOTE | 2018-04-28 16:47 | PN ---
Teaching Attending Note Name of Resident: Aftab Kwon ATTENDING PHYSICIAN STATEMENT I saw and evaluated the patient. I reviewed the resident's note and discussed the case with the resident. I agree with the resident's findings and plan as documented. SUBJECTIVE: Feeling much better, less abdominal pain. Some ongoing spotting. No chest pain.palpitations/SOB. No lightheadedness/dizziness. OBJECTIVE: Afebrile/Hemodynamically Stable. Last Vital Signs Temp Pulse Resp BP Pulse Ox 98.6 F 88 24 H 94/62 100 04/28/18 15:48 04/28/18 15:48 04/28/18 15:48 04/28/18 15:48 04/28/18 09:00 HEENT - Atraumatic, Normocephalic Heart - S1, S2, RRR Lungs - clear to auscultation Abdomen - Soft, mild generalized tednerness. surgical sites dressed. Bowel Sounds normal. Extremities- no edema, no calf tenderness. Laboratory Results - last 24 hr 04/28/18 04/28/18 04/28/18 05:30 05:30 05:30 WBC 9.2 RBC 3.38 L Hgb 9.8 L Hct 27.9 L MCV 82.6 MCH 29.0 MCHC 35.1 RDW 14.1 Plt Count 123 L D MPV 7.5 Absolute Neuts (auto) 6.4 Neutrophils % 70.0 Lymphocytes % 20.3 D Monocytes % 6.9 Eosinophils % 2.5 D Basophils % 0.3 Nucleated RBC % 0 PT with INR 16.00 H INR 1.35 H Sodium 141 Potassium 3.9 Chloride 113 H Carbon Dioxide 25 Anion Gap 4 L BUN 5 L Creatinine 0.7 Creat Clearance w eGFR > 60 Random Glucose 80 Calcium 6.9 L* Phosphorus 2.1 L Magnesium 1.7 L Total Bilirubin 0.7 AST 22 ALT 12 L Alkaline Phosphatase 52 Total Protein 4.7 L Albumin 2.2 L 04/28/18 13:06 WBC 9.4 RBC 3.60 Hgb 10.6 L Hct 30.2 L MCV 83.9 MCH 29.4 MCHC 35.0 RDW 14.4 Plt Count 129 L MPV 7.4 L Absolute Neuts (auto) 7.0 Neutrophils % 74.2 Lymphocytes % 16.8 Monocytes % 6.3 Eosinophils % 2.4 Basophils % 0.3 Nucleated RBC % 0 PT with INR INR Sodium Potassium Chloride Carbon Dioxide Anion Gap BUN Creatinine Creat Clearance w eGFR Random Glucose Calcium Phosphorus Magnesium Total Bilirubin AST ALT Alkaline Phosphatase Total Protein Albumin Current Medications Generic Name Dose Route Start Last Admin Trade Name Freq PRN Reason Stop Dose Admin Chlorhexidine Gluconate 1 applic 04/27/18 22:00 04/27/18 21:52 Hibiclens For Decolonization - TP 1 applic HS [facility] Administration Phenylephrine HCl 10,000 mcg/ 500 mls @ 300 mls/hr 04/27/18 00:45 04/28/18 02 :18 Dextrose IV Not Given TITR [facility] Protocol 100 MCG/MIN Lactated Ringer's 1,000 ml in 1,000 mls @ 100 mls/hr 04/27/18 01:15 04/28/18 12:56 Lactated Ringers Solution IV 100 mls/hr ASDIR [facility] Administration Piperacillin Sod/Tazobactam 50 mls @ 100 mls/hr 04/27/18 18:00 04/28/18 10:55 Sod 3.375 gm/ Dextrose IVPB 100 mls/hr Q8H-IV [facility] Administration Protocol Metoprolol Tartrate 50 mg 04/28/18 06:00 04/28/18 16:31 Lopressor - PO 50 mg TID [facility] Administration Morphine Sulfate 2 mg 04/27/18 01:44 04/27/18 12:17 Morphine Sulfate IVPUSH 2 mg Q4H PRN Administration PAIN LEVEL 6-10 Mupirocin 1 applic 04/27/18 10:00 04/28/18 10:55 Bactroban Ointment (For Decolonization) - NS 05/02/18 09:59 1 applic BID [facility] Administration Ondansetron HCl 4 mg 04/27/18 05:39 04/27/18 06:21 Zofran Injection IVPUSH 4 mg Q6H PRN Administration NAUSEA AND/OR VOMITING Simethicone 40 mg 04/27/18 18:20 04/27/18 18:43 Mylicon Liquid - PO 40 mg Q6H PRN Administration GAS ASSESSMENT AND PLAN: 33 year old female with history of Atrial Fibrillation s/p ablation x 2, presented to the ED with abdominal pain and vomiting, found to have Hemorrhagic Shock secondary to ruptured ectopic on the R with hemoperitoneum, currently POD 2 s/p R salpingectomy. Hospital course has been complicated with RVR, requiring pharmacological cardioversion with Propafenone 04/27. 1. Hemorrhagic Shock secondary to Ruptured ectopic with Hemoperitoneum - resolved, off Phenylephrine, off Levophed POD 2 s/p laparoscopic R salpingectomy 04/26 On Zosyn empirically - ID following Further recommendations as per FOOD STOREROOM CLERK 2. Acute Blood Loss Anemia secondary to Ruptured Ectopic s/p R salpingectomy - H/H 10.6/30.2 s/p 3 units PRBCs. 3. Atrial Fibrillation (s/p 2 prior ablations) with RVR - currently in SR s/p Propafenone - Continue Lopressor. Awaiting Cardiology recommendations re: future AC/Antiplatelet agent. Patient does not appear to have been on AC previously - further recs as per Cardiology. 4. Hypokalemia - repleted. 5. Hypomangesemia - repleted. 6. DVT Px - SCDs
--- NOTE | 2018-04-28 17:28 | PN ---
Progress Note, Physician History of Present Illness: AWAKE, ALERT LESS ABDOMINAL PAIN OFF PRESSORS AFEBRILE WBC WNL BC PRELIM (-) - Current Medication List Current Medications: Active Medications Chlorhexidine Gluconate (Hibiclens For Decolonization -) 1 applic TP HS [facility] Last Admin: 04/27/18 21:52 Dose: 1 applic Phenylephrine HCl 10,000 mcg/ (Dextrose) 500 mls @ 300 mls/hr IV TITR [facility]; Protocol Last Admin: 04/28/18 02:18 Dose: Not Given Lactated Ringer's (Lactated Ringers Solution) 1,000 ml in 1,000 mls @ 100 mls/ hr IV ASDIR [facility] Last Admin: 04/28/18 12:56 Dose: 100 mls/hr Piperacillin Sod/Tazobactam (Sod 3.375 gm/ Dextrose) 50 mls @ 100 mls/hr IVPB Q8H-IV [facility]; Protocol Last Admin: 04/28/18 10:55 Dose: 100 mls/hr Metoprolol Tartrate (Lopressor -) 50 mg PO TID [facility] Last Admin: 04/28/18 16:31 Dose: 50 mg Morphine Sulfate (Morphine Sulfate) 2 mg IVPUSH Q4H PRN PRN Reason: PAIN LEVEL 6-10 Last Admin: 04/27/18 12:17 Dose: 2 mg Mupirocin (Bactroban Ointment (For Decolonization) -) 1 applic NS BID [facility] Stop: 05/02/18 09:59 Last Admin: 04/28/18 10:55 Dose: 1 applic Ondansetron HCl (Zofran Injection) 4 mg IVPUSH Q6H PRN PRN Reason: NAUSEA AND/OR VOMITING Last Admin: 04/27/18 06:21 Dose: 4 mg Simethicone (Mylicon Liquid -) 40 mg PO Q6H PRN PRN Reason: GAS Last Admin: 04/27/18 18:43 Dose: 40 mg - Objective Vital Signs: Vital Signs Temperature 98.6 F 04/28/18 15:48 Pulse Rate 88 04/28/18 15:48 Respiratory Rate 24 H 04/28/18 15:48 Blood Pressure 94/62 04/28/18 15:48 O2 Sat by Pulse Oximetry (%) 100 04/28/18 09:00 Constitutional: Yes: No Distress Eyes: Yes: Conjunctiva Clear Cardiovascular: Yes: Regular Rate and Rhythm, S1, S2 Respiratory: Yes: CTA Bilaterally Gastrointestinal: Yes: Normal Bowel Sounds, Soft, Tenderness Labs: CBC, BMP 04/28/18 13:06 04/28/18 05:30 INR, PTT INR 1.35 (0.83-1.09) H 04/28/18 05:30 Assessment/Plan POST OP SALPINGECTOMY/ RUPTURED ECTOPIC HEMOPERITONEUM CONTINUE EMPIRIC ZOSYN
[2018-04-28] MEDS ORDERED: POTASSIUM PHOSPHATE 15 MM in SODIUM CHLORIDE 250 ML IVPB ONE (18:15)
[2018-04-29] MEDS: PHENYLEPHRINE HCL 10,000 MCG in DEXTROSE 5%-WATER - 499 ML IV SCH (00:45)
[2018-04-29] MEDS: LACTATED RINGERS SOLUTION 1,000 ML/1,000 ML INFUS.BAG IV SCH (00:51)
[2018-04-29] MEDS ORDERED: DEXTROSE 5%-WATER - 50 ML IVPB ONE ×2 (00:54→08:52)
[2018-04-29] MEDS ORDERED: PIPERACILLIN/TAZOBACTAM 3.375 GM VIAL IVPB ONE ×2 (00:54→08:52)
[2018-04-29] MEDS: PIPERACILLIN/TAZOB 3.375 GM 3.375 GM in DEXTROSE 5%-WATER - 50 ML IVPB SCH (01:14)
[2018-04-29] MEDS ORDERED: ONDANSETRON 4 MG/2 ML VIAL IVPUSH PRN (02:09)
[2018-04-29] MEDS ORDERED: MORPHINE SULFATE 2 MG/ML VIAL IVPUSH PRN (02:09)
[2018-04-29] MEDS ORDERED: SIMETHICONE 40 MG/0.6 ML BOTTLE PO PRN (02:09)
[2018-04-29] MEDS ORDERED: LACTATED RINGERS SOLUTION 1,000 ML/1,000 ML INFUS.BAG IV SCH (02:09)
[2018-04-29] MEDS ORDERED: METOPROLOL TARTRATE 50 MG TABLET (FP) PO SCH (06:00)
[2018-04-29 06:08] LABS: BASO % 0.3 % (0-2.0); EOS % 2.8 % (0-4.5); HEMATOCRIT 27.8 % (32.4-45.2); HEMOGLOBIN 9.8 GM/dL (10.7-15.3); LYMPH % 18.8 % (8-40); MCH 29.3 pg (25.7-33.7); MCHC 35.3 g/dl (32.0-36.0); MEAN PLT VOLUME 7.4 fl (7.5-11.1); MONO % 7.8 % (3.8-10.2); NEUT % 70.3 % (42.8-82.8); PLATELET COUNT 127 K/MM3 (134-434); RBC 3.35 M/mm3 (3.60-5.2); RDW 14.1 % (11.6-15.6)
[2018-04-29 06:34] LABS: ANION GAP 5 MMOL/L (8-16); BLOOD UREA NITROGEN 5 mg/dL (7-18); CALCIUM 7.2 mg/dL (8.5-10.1); CHLORIDE 112 mmol/L (98-107); CO2 26 mmol/L (21-32); CREATININE 0.7 mg/dL (0.55-1.3); GLUCOSE,RANDOM 80 mg/dL (74-106); MAGNESIUM 1.9 mg/dL (1.8-2.4); PHOSPHOROUS 2.8 mg/dL (2.5-4.9); SODIUM 143 mmol/L (136-145)
[2018-04-29] MEDS ORDERED: MAGNESIUM OXIDE 400 MG TABLET (FP) PO ONE (08:15)
[2018-04-29] MEDS ORDERED: PIPERACILLIN/TAZOB 3.375 GM 3.375 GM in DEXTROSE 5%-WATER - 50 ML IVPB SCH (10:00)
--- NOTE | 2018-04-29 10:14 | PN ---
Progress Note, Physician History of Present Illness: 33 F with h/o afib s/p ablation x 2, not currently on AC or rate control, presenting to ED with abdominal pain. Pt states that the pain began last night. It is localized to her suprapubic region and 10/10 in intensity. Pt states that the pain resolved spontaneously last night, but this afternoon it recurred and has been constant. Pt denies any N/V. Denies F/C. Denies radiation of pain anywhere else. Denies CP/SOB. Denies vaginal discharge/bleeding. Denies dysuria. PMH Family health history Daughter Born with SVT Mother Post heart condition 21 Ongoing medical problems No evidence of accessory pathway or inducible tachycardia March 21, 2010 Palpitations Paroxysmal atrial fibrillation March 21, 2010 s/p ablation x2 Dr. Malhotra [facility] - Current Medication List Current Medications: Active Medications Lactated Ringer's (Lactated Ringers Solution) 1,000 ml in 1,000 mls @ 100 mls/ hr IV ASDIR [facility] Last Admin: 04/29/18 02:17 Dose: Not Given Piperacillin Sod/Tazobactam (Sod 3.375 gm/ Dextrose) 50 mls @ 100 mls/hr IVPB Q8H-IV [facility]; Protocol Piperacillin Sod/Tazobactam (Sod 3.375 gm/ Dextrose) 50 mls @ 100 mls/hr IVPB Q8H-IV [facility]; Protocol Stop: 04/30/18 02:29 Metoprolol Tartrate (Lopressor -) 50 mg PO TID [facility] Last Admin: 04/29/18 06:24 Dose: 50 mg Morphine Sulfate (Morphine Sulfate) 2 mg IVPUSH Q4H PRN PRN Reason: PAIN LEVEL 6-10 Ondansetron HCl (Zofran Injection) 4 mg IVPUSH Q6H PRN PRN Reason: NAUSEA AND/OR VOMITING Simethicone (Mylicon Liquid -) 40 mg PO Q6H PRN PRN Reason: GAS - Objective Vital Signs: Vital Signs Temperature 98.6 F 04/29/18 08:00 Pulse Rate 86 04/29/18 08:00 Respiratory Rate 22 H 04/29/18 08:00 Blood Pressure 102/60 04/29/18 08:00 O2 Sat by Pulse Oximetry (%) 100 04/28/18 20:00 Eyes: Yes: WNL, Conjunctiva Clear, EOM Intact HENT: Yes: WNL, Atraumatic, Normocephalic Neck: Yes: WNL, Supple, Trachea Midline Cardiovascular: Yes: WNL, Regular Rate and Rhythm Respiratory: Yes: WNL, Regular, CTA Bilaterally Gastrointestinal: Yes: WNL, Normal Bowel Sounds Genitourinary: Yes: WNL Musculoskeletal: Yes: WNL Extremities: Yes: WNL Edema: No Integumentary: Yes: WNL Neurological: Yes: WNL, Alert, Oriented ...Motor Strength: WNL Psychiatric: Yes: WNL Labs: CBC, BMP 04/29/18 05:30 04/29/18 05:30 INR, PTT INR 1.35 (0.83-1.09) H 04/28/18 05:30 Problem List - Problems (1) Atrial flutter with rapid ventricular response Code(s): I48.92 - UNSPECIFIED ATRIAL FLUTTER (2) Ectopic Code(s): O00.90 - UNSPECIFIED ECTOPIC WITHOUT INTRAUTERINE (3) Ruptured ectopic Code(s): O00.90 - UNSPECIFIED ECTOPIC WITHOUT INTRAUTERINE (4) Abdominal discomfort Code(s): R10.9 - UNSPECIFIED ABDOMINAL PAIN (5) Abnormal EKG Code(s): R94.31 - ABNORMAL ELECTROCARDIOGRAM [ECG] [EKG] (6) Atrial fibrillation Code(s): I48.91 - UNSPECIFIED ATRIAL FIBRILLATION Qualifiers: Atrial fibrillation type: paroxysmal Qualified Code(s): I48.0 - Paroxysmal atrial fibrillation (7) Chest pain Code(s): R07.9 - CHEST PAIN, UNSPECIFIED (8) Epigastric pain Code(s): R10.13 - EPIGASTRIC PAIN (9) Light-headed Code(s): R42 - DIZZINESS AND GIDDINESS (10) Microcytic anemia Code(s): D50.9 - IRON DEFICIENCY ANEMIA, UNSPECIFIED (11) Palpitations Code(s): R00.2 - PALPITATIONS (12) Paroxysmal atrial fibrillation Code(s): I48.0 - PAROXYSMAL ATRIAL FIBRILLATION (13) Peptic ulcer disease Code(s): K27.9 - PEPTIC ULC, SITE UNSP, UNSP AC OR CHR, W/O HEMOR OR PERF (14) Code(s): Z33.1 - STATE, INCIDENTAL Assessment/Plan s/p septic shock / Sepsis due to an intra-abdominal source. AF RVR in sr now Atrial fibrillation (s/p ablation x2) Ruptured ectopic S/P laparoscopic right salphingectomy Plan IVF ABX cont bb restart AC when ok from SPRAY PAINTER point of view CC time 36 min
--- NOTE | 2018-04-29 12:05 | PN ---
Progress Note, Physician History of Present Illness: AWAKE, ALERT LESS ABDOMINAL PAIN OFF PRESSORS AFEBRILE WBC WNL BC (-) - Current Medication List Current Medications: Active Medications Lactated Ringer's (Lactated Ringers Solution) 1,000 ml in 1,000 mls @ 100 mls/ hr IV ASDIR [facility] Last Admin: 04/29/18 02:17 Dose: Not Given Piperacillin Sod/Tazobactam (Sod 3.375 gm/ Dextrose) 50 mls @ 100 mls/hr IVPB Q8H-IV [facility]; Protocol Piperacillin Sod/Tazobactam (Sod 3.375 gm/ Dextrose) 50 mls @ 100 mls/hr IVPB Q8H-IV [facility]; Protocol Stop: 04/30/18 02:29 Last Admin: 04/29/18 10:17 Dose: 100 mls/hr Metoprolol Succinate (Toprol Xl -) 50 mg PO DAILY [facility] Morphine Sulfate (Morphine Sulfate) 2 mg IVPUSH Q4H PRN PRN Reason: PAIN LEVEL 6-10 Ondansetron HCl (Zofran Injection) 4 mg IVPUSH Q6H PRN PRN Reason: NAUSEA AND/OR VOMITING Simethicone (Mylicon Liquid -) 40 mg PO Q6H PRN PRN Reason: GAS - Objective Vital Signs: Vital Signs Temperature 98.6 F 04/29/18 10:00 Pulse Rate 85 04/29/18 10:00 Respiratory Rate 22 H 04/29/18 10:00 Blood Pressure 102/60 04/29/18 10:00 O2 Sat by Pulse Oximetry (%) 100 04/29/18 09:00 Constitutional: Yes: No Distress Cardiovascular: Yes: Regular Rate and Rhythm, S1, S2 Respiratory: Yes: CTA Bilaterally Gastrointestinal: Yes: Normal Bowel Sounds, Soft. No: Tenderness Edema: No Labs: CBC, BMP 04/29/18 05:30 04/29/18 05:30 INR, PTT INR 1.35 (0.83-1.09) H 04/28/18 05:30 Assessment/Plan POST OP SALPINGECTOMY/ RUPTURED ECTOPIC HEMOPERITONEUM DOING WELL CULTURES NEGATIVE D/C ANTIBIOTICS
--- NOTE | 2018-04-29 13:56 | PN ---
Progress Note (short form) - Note Progress Note: 33 yo Para 3 with ruptured ectopic , status post laparoscopic right salpingectomy was transferred to ICU due to tachycardia associated with h/o atrial fibrillation. Patient is now stable. She may be D/C home and follow up with [facility] as outpatient. Problem List - Problems (1) Ectopic Code(s): O00.90 - UNSPECIFIED ECTOPIC WITHOUT INTRAUTERINE
--- NOTE | 2018-04-29 14:10 | PN ---
Teaching Attending Note Name of Resident: Dashawn Madera ATTENDING PHYSICIAN STATEMENT I saw and evaluated the patient. I reviewed the resident's note and discussed the case with the resident. I agree with the resident's findings and plan as documented. SUBJECTIVE: Feeling much better, significantly less abdominal pain. No chest pain.palpitations/SOB. No lightheadedness/dizziness. No fever/chills OBJECTIVE: Afebrile/Hemodynamically Stable. Last Vital Signs Temp Pulse Resp BP Pulse Ox 98.6 F 85 22 H 102/60 100 04/29/18 10:00 04/29/18 10:00 04/29/18 10:00 04/29/18 10:00 04/29/18 09:00 HEENT - Atraumatic, Normocephalic Heart - S1, S2, RRR Lungs - clear to auscultation Abdomen - Soft, mild generalized tenderness. surgical sites dressed. Bowel Sounds normal. Extremities- no edema, no calf tenderness. Laboratory Results - last 24 hr 04/29/18 04/29/18 05:30 05:30 WBC 9.0 RBC 3.35 L Hgb 9.8 L Hct 27.8 L MCV 83.0 MCH 29.3 MCHC 35.3 RDW 14.1 Plt Count 127 L MPV 7.4 L Absolute Neuts (auto) 6.3 Neutrophils % 70.3 Lymphocytes % 18.8 Monocytes % 7.8 Eosinophils % 2.8 Basophils % 0.3 Nucleated RBC % 0 Sodium 143 Potassium 4.0 Chloride 112 H Carbon Dioxide 26 Anion Gap 5 L BUN 5 L Creatinine 0.7 Creat Clearance w eGFR > 60 Random Glucose 80 Calcium 7.2 L Phosphorus 2.8 Magnesium 1.9 Current Medications Generic Name Dose Route Start Last Admin Trade Name Freq PRN Reason Stop Dose Admin Lactated Ringer's 1,000 ml in 1,000 mls @ 100 mls/hr 04/29/18 02:09 04/29/18 02:17 Lactated Ringers Solution IV Not Given ASDIR RAINE Piperacillin Sod/Tazobactam 50 mls @ 100 mls/hr 04/30/18 10:00 Sod 3.375 gm/ Dextrose IVPB Q8H-IV RAINE Protocol Metoprolol Succinate 50 mg 04/29/18 10:30 Toprol Xl - PO DAILY RAINE Morphine Sulfate 2 mg 04/29/18 02:09 Morphine Sulfate IVPUSH Q4H PRN PAIN LEVEL 6-10 Ondansetron HCl 4 mg 04/29/18 02:09 Zofran Injection IVPUSH Q6H PRN NAUSEA AND/OR VOMITING Simethicone 40 mg 04/29/18 02:09 Mylicon Liquid - PO Q6H PRN GAS ASSESSMENT AND PLAN: 33 year old female with history of Atrial Fibrillation s/p ablation x 2, presented to the ED with abdominal pain and vomiting, found to have Hemorrhagic Shock secondary to ruptured ectopic on the R with hemoperitoneum, currently POD 3 s/p R salpingectomy. Hospital course has been complicated with RVR, requiring pharmacological cardioversion with Propafenone 04/27. 1. Hemorrhagic Shock secondary to Ruptured ectopic with Hemoperitoneum - resolved, off Phenylephrine, off Levophed POD 3 s/p laparoscopic R salpingectomy 04/26 Received Zosyn empirically for 3 days - discontinued by ID. Further recommendations for post-operative care as per PRECIPITATION EQUIPMENT TENDER 2. Acute Blood Loss Anemia secondary to Ruptured Ectopic s/p R salpingectomy - H/H 9.8/27.8 s/p 3 units PRBCs. 3. Atrial Fibrillation (s/p 2 prior ablations) with RVR - currently in SR s/p Propafenone - Continue Lopressor as per Cardio. Awaiting Cardiology recommendations re: AC/Antiplatelet agent and anti-arrhythmic. Medically stable for discharge on Atiral Fibrillation drug regimen suggested by Cardio. 4. Hypokalemia - repleted. 5. Hypomangesemia - repleted. Medically stable, awaiting Gynecology clearance and Cardiology medication recommendations prior to discharge.
[2018-04-29 14:13] VITALS: BP 96/66; PULSE 86; TEMP 98.4
--- NOTE | 2018-04-29 14:43 | DS ---
Physical Exam: SUBJECTIVE: Patient seen and examined at bedside. Pain resolved, no further spotting, no acute complaints. OBJECTIVE: Vital Signs Period Temp Pulse Resp BP Sys/Elizabeth Pulse Ox Last 24 Hr 98.2 F-99.9 F 85-95 20-24 94-105/58-72 100-100 PHYSICAL EXAM GENERAL: A&Ox3, NAD HEENT: NC/AT, PERRLA, EOMI, MMM NECK: Trachea midline, full range of motion, supple. LUNGS: CTA b/l HEART: RRR no m/r/g ABDOMEN: +bs, soft, ND, mild residual tenderness, surgical dressings in place EXTREMITIES: 2+ pulses, warm, well-perfused, no edema. 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 SKIN: Warm, dry, normal turgor, no rashes or lesions noted LABS Laboratory Results - last 24 hr 04/29/18 04/29/18 05:30 05:30 WBC 9.0 RBC 3.35 L Hgb 9.8 L Hct 27.8 L MCV 83.0 MCH 29.3 MCHC 35.3 RDW 14.1 Plt Count 127 L MPV 7.4 L Absolute Neuts (auto) 6.3 Neutrophils % 70.3 Lymphocytes % 18.8 Monocytes % 7.8 Eosinophils % 2.8 Basophils % 0.3 Nucleated RBC % 0 Sodium 143 Potassium 4.0 Chloride 112 H Carbon Dioxide 26 Anion Gap 5 L BUN 5 L Creatinine 0.7 Creat Clearance w eGFR > 60 Random Glucose 80 Calcium 7.2 L Phosphorus 2.8 Magnesium 1.9 HOSPITAL COURSE: Date of Admission:04/26/18 Patient is a 33 y/o F r old woman w/ PMHx Afib s/p ablation x 2 and h/o Eliquis , p/w sudden onset lower abdominal pain and vaginal bleeding, TVUS demonstrated adnexal mass c/w ectopic . Pt received 3U PRBC, was admitted to ICU for ruptured ectopic and underwent laparoscopic R salpinectomy with OBGYN. Subsequently treated for hemorrhagic shock with pressors and was succesfully weaned s/p fluid resuscitation w/ stable MAP. Additionally, arrythymia was exacerbated and patient was found in Afib w/ RVR and tachycardic to 160s. Cardiology was consulted. Cardioversion was achieved chemically w/ propafenone, rate subsequently controlled w/ Toprol. Patient was discharged on Toprol and Eliquis w/ agreement of OBGYN and cardiology and referred for outpt f /u w/ OBGYN and cardiology. Date of Discharge: 04/29/18 Minutes to complete discharge: 40 Discharge Summary Reason For Visit: RUPTURED ECTOPIC , ARTIAL FLUTTER WITH Current Active Problems Atrial flutter with rapid ventricular response (Acute) Ectopic (Acute) Ruptured ectopic (Acute) Condition: Stable - Instructions Diet, Activity, Other Instructions: You were hospitalized for a ruptured ectopic causing significant bleeding. You were seen and evaluated by OBGYN and an infectious disease specialist. You underwent a blood transfusion and surgery to remove the affected fallopian tube, and received prophylactic antibiotics. You were stabilized in the intensive care unit. You will require outpatient followup with the OBGYN, Dr. Florez, as early as possible following your discharge. You additionally experienced an exacerbation of your irregular heart rhythm. You were seen and evaluated by a specialist in cardiology, and received medication to convert your heart to a normal rhythm. You are being prescribed a medication called Toprol to continue control of your heart rate. Please also resume taking Eliquis; a new prescription has been sent to your pharmacy. Please take this medication as directed You require outpatient followup with cardiology for continued management. Referrals have been made on your behalf to OBGYN and cardiology. Please also follow up with your primary care doctor. If you experience any new vaginal bleeding, new or worsening chest pain, palpitations, shortness of breath, sudden numbness or weakness, fever, chills, or any other new or concerning symptoms, please return to the ED. Referrals: Larisa Florez MD [Staff Physician] - Aftab Malhotra MD [Non Staff, Medical] - Disposition: HOME - Home Medications Comprehensive Discharge Medication List: Ambulatory Orders Apixaban [Eliquis] 5 mg PO BID #60 tablet 04/29/18 Metoprolol Succinate [Toprol Xl -] 50 mg PO DAILY #30 tablet 04/29/18 This patient is new to me today: No Emergency Visit: No Critical Care patient: No - Discharge Referral Referred to [facility] No
[2018-04-30] MEDS ORDERED: PIPERACILLIN/TAZOB 3.375 GM 3.375 GM in DEXTROSE 5%-WATER - 50 ML IVPB SCH (10:00)
== END 2018-04-29 15:40 | disposition home or self-care (01) | DRG 817 ==
LOC: JER 14:58 → JERBED 19:06 → OBSVTOIN 22:51 → JICU 04-27 00:43 → J2W 04-28 16:01
PROVIDERS: ADMIT Obstetrics & Gynecology
PROC: 10T28ZZ Resection of Products of Conception, Ectopic, Via Natural or Artificial Opening Endoscopic (ICD-10-PCS; 2018-04-26)
PROC: 30233N1 Transfusion of Nonautologous Red Blood Cells into Peripheral Vein, Percutaneous Approach (ICD-10-PCS; 2018-04-26)
PROC: 0UB58ZZ Excision of Right Fallopian Tube, Via Natural or Artificial Opening Endoscopic (ICD-10-PCS; principal; 2018-04-26 20:30)
PROC: 5A2204Z Restoration of Cardiac Rhythm, Single (ICD-10-PCS; 2018-04-27)
DX: O00.101 Right tubal pregnancy without intrauterine pregnancy (principal); K66.1 Hemoperitoneum; E87.2 Acidosis; I48.92 Unspecified atrial flutter; D62 Acute posthemorrhagic anemia; I48.0 Paroxysmal atrial fibrillation; I95.89 Other hypotension; R00.0 Tachycardia, unspecified; E83.51 Hypocalcemia; E83.42 Hypomagnesemia; E88.09 Other disorders of plasma-protein metabolism, not elsewhere classified; E83.39 Other disorders of phosphorus metabolism
CPT/HCPCS: 36415; 36430; 36600; 76700-TC; 76830-TC; 80048; 80053; 81003; 82803; 83605; 83690; 83735; 84100; 84702; 84703; 85025; 85610; 86850; 86900; 86901; 86922; 86999; 87040; 87086; 88305-TC; 93005; 93010; 94760; 99285-25; G0378; J0131; J1561; P9038; P9058